=== PATIENT | female | born 1950 | race Caucasian/White ===

== ENCOUNTER 2020-05-20 14:57 | Outpatient (CLI) | payer MEDICARE, SELFPAY ==
--- NOTE | ~2020-05-20 | MM_ITS ---
EXAMINATION: MM screening manuela BI w tanmay HISTORY: Screening mammogram TECHNIQUE: Craniocaudal and mediolateral oblique 3-D tomosynthesis images were obtained and synthetic 2-D images were generated. CAD analysis was submitted and interpreted. COMPARISON: Comparison to multiple prior studies sequentially, with oldest reviewed study dated 12/12. BREAST PARENCHYMAL COMPOSITION: There are scattered areas of fibroglandular density. FINDINGS: There is no evidence of suspicious mass, calcification, or architectural distortion to sugg est malignancy in either breast. There has been no suspicious interval change. IMPRESSION: 1. No mammographic evidence of malignancy. 2. Recommend routine screening mammography in one year. BI-RADS Category 1: Negative Reviewed, dictated and finalized at location A.
--- NOTE | ~2020-05-20 | DEXA_ITS ---
Bone Density Report Name: Irene Lou Age: 70 Sex: Female Ethnicity: White Date of : 1950 Indication: postmenopausal; Referring Provider: Jax Cruz Study: Bone densitometry was performed. Exam Date: May 20, 2020 Accession number: [id number] Bone Density: Region BMD T-score Z-score Classification AP Spine (L1-L4) 0.823 -2.0 -0.1 Osteopenia Femoral Neck (Left) 0.634 -1.9 -0.3 Osteopenia Total Hip (Left) 0.717 -1.8 -0.5 Osteopenia Total Hip Bilateral Avg 0.724 -1.8 -0.4 Osteopenia Femoral Neck (Right) 0.628 -2.0 -0.3 Osteopenia Total Hip (Right) 0.730 -1.7 -0.3 Osteopenia World Health Organization criteria for BMD impression classify patients as: Normal (T-score at or above -1.0), Osteopenia (T-score between -1.0 and -2.5), or Osteoporosis (T-score at or below -2.5). 10-year Fracture Risk(1): Major Osteoporotic Fracture 11% Hip Fracture 1.8% Reported Risk Factors: [place] (), Neck BMD=0.628, BMI=28.3 (1) FRAX(R) Version 3.08. Fracture probability calculated for an untreated patient. Fracture probability may be lower if the patient has received treatment. Clinical Information Provided by Patient: Has used the following medications: Calcium Patient maximum height was 64 Menopause Age: 54 Drinks caffeinated beverages Onset of menses at age 16 Number of children 1 Impression: The patient has low bone mass, based on the Total Spine T-score. The patient has an estimated ten-year risk of hip fracture of 1.8% and an estimated ten-year risk of major fracture of 11%, based on the WHO FRAX algorithm. Discussion: BONE DENSITY IS LOW AT ONE OR MORE SKELETAL SITES. This patient's lowest T-score is low at one or more skeletal sites. It meets the World Health Organization's (WHO) criteria for ?low bone mass? (T-score between -1.0 and -2.5). The patient's 10-year risk of fracture as calculated by FRAX is less than the threshold where pharmacological therapy is recommended by the National Osteoporosis Foundation (NOF). However, all treatment decisions require clinical judgment and consideration of individual patient factors, including patient preferences, comorbidities, previous drug use, risk factors not captured in the FRAX model (e.g., frailty, falls, vitamin D deficiency, increased bone turnover, interval significant decline in bone density) and possible under or overestimation of fracture risk by FRAX. The patient should follow a healthful lifestyle (good nutrition with adequate calcium and vitamin D, and appropriate weight-bearing exercise). Follow-Up: Consider repeating this study in 2 to 3 years to reassess this patient's status, or sooner if there is some new clinical indication. Reported by: AMADO on 05/20/2020 3:29:00 PM. Reviewed,
== END 2020-05-20 14:58 | disposition home or self-care (01) ==
LOC: ANHIMG 14:59
PROVIDERS: PCP Family Medicine; Visit Provider Family Medicine
DX: Z12.31 Encounter for screening mammogram for malignant neoplasm of breast (principal); Z78.0 Asymptomatic menopausal state; M85.88 Other specified disorders of bone density and structure, other site; M85.852 Other specified disorders of bone density and structure, left thigh; M85.851 Other specified disorders of bone density and structure, right thigh
CPT/HCPCS: 77063; 77067; 77080

== ENCOUNTER 2021-05-28 14:38 | Outpatient (CLI) | payer MEDICARE, SELFPAY ==
--- NOTE | ~2021-05-28 | MM_ITS ---
EXAMINATION: MM screening manuela BI w tanmay HISTORY: Screening mammogram TECHNIQUE: Craniocaudal and mediolateral oblique 3-D tomosynthesis images were obtained and synthetic 2-D images were generated. CAD analysis was submitted and interpreted. COMPARISON: 05/20/2020, 05/17/2019, 04/11/2018 bilateral digital screening mammogram examinations BREAST PARENCHYMAL COMPOSITION: There are scattered areas of fibroglandular density. FINDINGS: There is no evidence of suspicious mass, calcification, or architectural distortion to sugg est malignancy in either breast. There has been no suspicious interval change. IMPRESSION: 1. No mammographic evidence of malignancy. 2. Recommend routine screening mammography in one year. BI-RADS Category 1: Negative Reviewed, dictated and finalized at location A.
== END 2021-05-28 14:39 | disposition home or self-care (01) ==
LOC: ANHIMG 14:39
PROVIDERS: PCP Family Medicine; Visit Provider Family Medicine
DX: Z12.31 Encounter for screening mammogram for malignant neoplasm of breast (principal)
CPT/HCPCS: 77063; 77067

== ENCOUNTER 2022-07-10 14:40 | Outpatient (CLI) | payer MEDICARE, SELFPAY ==
--- NOTE | ~2022-07-10 | DEXA_ITS ---
Bone Density Report Name: YEIMI AMATO Age: 72 Sex: Female Ethnicity: White Date of : 1950 Indication: osteopenia; postmenopausal Referring Provider: MOHINI LOYOLA Study: Bone densitometry was performed. Exam Date: July 10, 2022 Accession number: [id number] Bone Density: Region BMD T-score Z-score Classification AP Spine(L1-L4) 0.817 -2.1 0.0 Osteopenia Femoral Neck (Left) 0.659 -1.7 0.1 Osteopenia Total Hip (Left) 0.710 -1.9 -0.4 Osteopenia Femoral Neck (Right) 0.634 -1.9 -0.1 Osteopenia Total Hip (Right) 0.708 -1.9 -0.4 Osteopenia Total Hip Mean 0.709 -1.9 -0.4 Osteopenia World Health Organization criteria for BMD impression classify patients as: Normal (T-score at or above -1.0), Osteopenia (T-score between -1.0 and -2.5), or Osteoporosis (T-score at or below -2.5). 10-year Fracture Risk(1): Major Osteoporotic Fracture 13% Hip Fracture 3.1% Reported Risk Factors: [place] (), Neck BMD=0.634, BMI=30.7, alcohol use (1) FRAX(R) Version 3.08. Fracture probability calculated for an untreated patient. Fracture probability may be lower if the patient has received treatment. Previous Exams: Region Exam Age BMD T-score BMD Change BMD Change Date g/cm2 vs Baseline vs Previous AP Spine (L1-L4) 07/10/2022 72 0.817 -2.1 -0.005 (-0.6%) -0.005 (-0.6%) 05/20/2020 70 0.823 -2.0 Total Hip(Left) 07/10/2022 72 0.710 -1.9 -0.007 (-1.0%) -0.007 (-1.0%) 05/20/2020 70 0.717 -1.8 Total Hip(Right) 07/10/2022 72 0.708 -1.9 -0.022 (-3.0%) -0.022 (-3.0%) 05/20/2020 70 0.730 -1.7 *Denotes significance at 95% confidence level, LSC for AP Spine = 0.022 g/cm2, LSC for Total Hip = 0.027 g/cm2 Clinical Information Provided by Patient: Has 3 or more alcoholic drinks per day Patient maximum height was 64 Menopause Age: 54 Drinks caffeinated beverages Onset of menses at age 16 Number of children 1 Impression: The patient has low bone mass, based on the Total Spine T-score. The patient has an estimated ten-year risk of hip fracture of 3.1% and an estimated ten-year risk of major fracture of 13%, based on the WHO FRAX algorithm. The patient has risk factors, including: excessive alcohol use. No significant bone loss was observed. Discussion: BONE DENSITY IS LOW AT ONE OR MORE SKELETAL SITES. THE PATIENT'S BMD AND CLINICAL RISK FACTORS CONTRIBUTE TO THIS PATIENT'S INCREASED RISK OF FRACTURE. This morris
--- NOTE | ~2022-07-10 | MM_ITS ---
EXAMINATION: MM screening manuela BI w tanmay HISTORY: Screening mammogram TECHNIQUE: Craniocaudal and mediolateral oblique 3-D tomosynthesis images were obtained and synthetic 2-D images were generated. CAD analysis was submitted and interpreted. COMPARISON: 05/28/2021, 05/20/2020, 05/17/2019 bilateral screening mammogram examinations BREAST PARENCHYMAL COMPOSITION: There are scattered areas of fibroglandular density. FINDINGS: There is no evidence of suspicious mass, calcification, or architectural distortion to sugg est malignancy in either breast. There has been no suspicious interval change. IMPRESSION: 1. No mammographic evidence of malignancy. 2. Recommend routine screening mammography in one year. BI-RADS Category 1: Negative Reviewed, dictated and finalized at location A.
== END 2022-07-10 14:41 | disposition home or self-care (01) ==
LOC: ANHIMG 14:41
PROVIDERS: PCP Family Medicine; Visit Provider Student in an Organized Health Care Education/Training Program
DX: Z78.0 Asymptomatic menopausal state (principal); Z12.31 Encounter for screening mammogram for malignant neoplasm of breast; M85.89 Other specified disorders of bone density and structure, multiple sites
CPT/HCPCS: 77063; 77067; 77080

== ENCOUNTER → 2022-08-06 09:31 | Outpatient (CLI) | payer MEDICARE, SELFPAY ==
--- NOTE | ~2022-08-06 | MR_ITS ---
EXAMINATION: MR hip RT wo con DATE: 08/06/2022 10:38 INDICATION: Right hip pain TECHNIQUE: Magnetic resonance imaging (MRI) of the right hip was performed without intravenous contr ast. Sequences included full-field axial PD-weighted FS FSE and T1-weighted FSE, coronal of the pelvi s with PD-weighted FS FSE, T2-weighted FSE and T1-weighted FSE, small field of view of the right hip with axial PD-weighted FS FSE, sagittal PD-weighted FS FSE, coronal PD-weighted FS FSE and coronal T2 weighted FSE. Additional radial T1-weighted FGR oriented orthogonal to the acetabular rim were obt ained for evaluation of the labrum. COMPARISON: None FINDINGS: Bones/labrum/cartilage: Alignment is normal. No fracture, avascular necrosis or pathologic marrow replacing process. Mild os teoarthritis at the left hip with partial thickness cartilage loss primarily posteriorly and with les s severe partial thickness cartilage loss with some chondral surface regularity along the anterosuper ior to superolateral aspect of the joint space. There is diffuse tearing of the right acetabular labr um. Similar mild osteoarthritis at the left hip and anterosuperior to superolateral tear of the left acetabular labrum suggestive but not diagnostically evaluated on the larger field of view images. Mil d lumbar spondylosis. Fluid: Symmetric physiologic amount of fluid within both hip joints. Soft tissues: Mild tendinopathy at the bilateral gluteus medius and minimus tendons with partial tear at the anteri or facet footplate of the left gluteus minimus tendon. There is additional partial thickness tear of the anterior portion of the left gluteus medius medius tendon with retraction of the myotendinous deepthi ction 4.5 cm proximal to the greater trochanteric insertion. Mild right ischial bursitis with mild te ndinopathy without definitive tear at the right ischial tuberosity origin of the proximal right hamst ring tendons. Mild fatty atrophy of the bilateral gluteus medius minimus and left gluteus medius medi us muscle bellies. Limited evaluation of visceral organs of the pelvis is unremarkable. No pathologi alona enlarged pelvic/inguinal lymphadenopathy. IMPRESSION: 1. 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 Similar findings suggested but not diagnos tically evaluated the contralateral left hip on the larger field of view images. 2. Mild right ischial bursitis with mild tendinopathy without discrete tear of the proximal right ham string tendons. 3. Mild tendinopathy at the bilateral gluteus medias and minimus tendons without discrete tear on the right and with partial-thickness tears at the greater trochanteric insertions of the left gluteus mi nimus and medius tendons. Reviewed, dictated and finalized at location A. IMPRESSION: 1. 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 Similar findings sug gested but not diagnostically evaluated the contralateral left hip on the large r field of view images. 2. Mild right ischial bursitis with mild tendinopathy without discrete tear of the proximal right hamstring tendons. 3. Mild tendinopathy at the bilateral gluteus medias and minimus tendons withou t discrete tear on the right and with partial-thickness tears at the greater tr ochanteric insertions of the left gluteus minimus and medius tendons.
== END ==
PROVIDERS: PCP Family Medicine; Visit Provider Nurse Practitioner Family
DX: G89.29 Other chronic pain (principal); M25.551 Pain in right hip; M16.11 Unilateral primary osteoarthritis, right hip; S73.191A Other sprain of right hip, initial encounter; M71.551 Other bursitis, not elsewhere classified, right hip; M76.01 Gluteal tendinitis, right hip
CPT/HCPCS: 73721

== ENCOUNTER 2022-08-25 12:46 | Outpatient (CLI) | payer MEDICARE, SELFPAY ==
--- NOTE | ~2022-08-25 | XR_ITS ---
EXAMINATION: XR lg joint inject/asp add DATE: 08/25/2022 13:41 INDICATION: Right hip arthritis. TECHNIQUE: A time-out was performed to verify the patient's name, date of , and procedure to b e performed. The procedure including the risks, benefits, and alternatives was discussed with the pat ient. Risks discussed included bleeding and infection. The patient understood the risks and agreed to proceed. The skin overlying the right hip joint was prepped and draped in usual sterile fashion. A nesthetic was administered with 1% lidocaine subcutaneously. A 22 G needle was advanced under fluoro scopic guidance into the joint. Subsequently, injectate consisting of 2 mL 0.5% bupivacaine and 1 mL 80 mg/mL Depo-Medrol was instilled. The needle was removed and the entry site was cleaned and dress ed. There were no immediate complications. Fluoroscopy exposure time was 0.0 minutes. The total numb er of images was 1. FINDINGS: Real-time fluoroscopy demonstrates the needle in the right hip joint. Patient's pain prior to procedure:4/10. Patient's pain following the procedure: 4/10. IMPRESSION: 1. Fluoroscopy guided right hip joint injection of local anesthetic and steroid. Reviewed, dictated and finalized at location A. IMPRESSION: 1. Fluoroscopy guided right hip joint injection of local anesthetic and steroid .
--- NOTE | ~2022-08-25 | XR_ITS ---
CORRECTED REPORT order change 08/26/22 JMG This report was recreated on 08/26/22. Original report was signed by Thad Alexis M.D. on 08/25/2022 15:47 CDT EXAMINATION: XR lg joint inject/asp w image DATE: 08/25/2022 13:41 INDICATION: Right hip arthritis. TECHNIQUE: A time-out was performed to verify the patient's name, date of , and procedure to be performed. The procedure including the risks, benefits, and alternatives was discussed with the patient. Risks discussed included bleeding and infection. The patient understood the risks and agreed to proceed. The skin overlying the right hip joint was prepped and draped in usual sterile fashion. Anesthetic was administered with 1% lidocaine subcutaneously. A 22 G needle was advanced under fluoroscopic guidance into the joint. Subsequently, injectate consisting of 2 mL 0.5% bupivacaine and 1 mL 80 mg/mL Depo-Medrol was instilled. The needle was removed and the entry site was cleaned and dressed. There were no immediate complications. Fluoroscopy exposure time was 0.0 minutes. The total number of images was 1. FINDINGS: Real-time fluoroscopy demonstrates the needle in the right hip joint. Patient's pain prior to procedure:4/10. Patient's pain following the procedure: 4/10. IMPRESSION: 1. Fluoroscopy guided right hip joint injection of local anesthetic and steroid. Reviewed, dictated and finalized at location A. [facility]
== END 2022-08-25 12:47 | disposition home or self-care (01) ==
LOC: ANHIMG 12:48
PROVIDERS: PCP Family Medicine; Visit Provider Nurse Practitioner Family
DX: M16.11 Unilateral primary osteoarthritis, right hip (principal)
CPT/HCPCS: 20610; 77002; J1040

== ENCOUNTER 2023-10-07 02:04 | Day surgery (SDC) | payer MEDICARE, SELFPAY ==
[2023-09-27 15:27] VITALS: BMI 30.9
--- NOTE | 2023-10-05 12:05 | SUR.PREOP ---
Message left with patient regarding upcoming procedure. Reviewed preop instructions, appointment times, and procedure prep.
--- NOTE | 2023-10-06 15:53 | PM.HPGS ---
History of Present Illness History of Present Illness Consent: Risks, benefits, and alternatives have been discussed and questions answered. Patient agrees to proceed with procedure. Chief complaint: neoplasm screening Narrative: Irene Lou is a 73 year old female who is here for colon cancer screening. Her last colonoscopy was 10 years ago. Review of Systems Review of Systems: All systems reviewed & are unremarkable except as noted in HPI and below PMFSH Past Medical History Medical History Atonic neurogenic bladder Chronic right hip pain Chronic UTI (urinary tract infection) Dysuria Encounter for gynecological examination (general) (routine) without abnormal findings Essential (primary) hypertension Family history of breast cancer Gastro-esophageal reflux disease without esophagitis History of seizure History of stroke History of subarachnoid hemorrhage HLD (hyperlipidemia) Hypothyroidism Iliopsoas bursitis of right hip Low bone mass Screening mammogram, encounter for Trochanteric bursitis of right hip Surgical History Surgical History H/O total knee replacement (~2012) right knee Family History Family History Mother Cerebrovascular accident Family history of malignant neoplasm of breast in first degree relative Diabetes mellitus Family history of hypercholesterolemia Hypertension Father Family history of coronary artery disease Sibling Family history of malignant neoplasm of breast in first degree relative, Onset Age: 58 Other Family history of arthritis Family history of mental disorder Social History Social History Smoking status: Never smoker Second hand tobacco smoke exposure: No Alcohol intake: current Drinks per week: 15 Alcohol use details: DRINKS Substance use: never Substance use type: does not use Lack of Transportation: No Lack of Food: Never True Current Housing: I Have Housing Concerned About Future Housing: No Difficulty Paying Gas/Electric Bills: No Difficulty Paying for Meds: No Currently Unemployed: No Education: Master's Degree or Higher Difficulty w/ Childcare or Family Care: No Living arrangements: with family Additional living arrangements comments: Occupation/Education: retired Gender identity (if verbalized by the patient): Female Sexual Orientation (if Verbalized by the Patient): Straight or Heterosexual Spiritual care concerns: No Meds Home Medications and Allergies Home Medications Medication Instructions Recorded Confirmed Type alendronate 35 mg tablet 35 mg PO WEEKLY #90 tabs 09/02/22 09/27/23 Rx amlodipine 10 mg tablet See Rx Instructions .Route 12/14/22 09/27/23 Rx .COMPLEX #90 tabs atorvastatin 20 mg tablet See Rx Instructions .Route 12/14/22 09/27/23 Rx .COMPLEX #90 tabs cephalexin 500 mg capsule 500 mg PO DAILY #90 caps 12/14/22 09/27/23 Rx chlorthalidone 25 mg tablet See Rx Instructions .Route 12/14/22 09/27/23 Rx .COMPLEX #90 tabs levetiracetam 1,000 mg tablet See Rx Instructions .Route 12/14/22 09/27/23 Rx .COMPLEX #180 tabs levothyroxine 88 mcg tablet See Rx Instructions .Route 12/14/22 09/27/23 Rx .COMPLEX #90 tabs Calcium 500 + D 1 tab-cap PO DAILY 09/27/23 09/27/23 History cyanocobalamin (vitamin B-12) 1,000 mcg PO DAILY 09/27/23 09/27/23 History 1,000 mcg tablet lansoprazole 15 mg capsule,delayed 30 mg PO DAILY 09/27/23 09/27/23 History release magnesium oxide 500 mg tablet 500 mg PO DAILY 09/27/23 09/27/23 History svdwffbiixih-Pc-mogz-minerals 1 tablet PO DAILY 09/27/23 09/27/23 History turmeric root extract 500 mg 500 mg PO BID 09/27/23 09/27/23 History capsule Allergies Allergy/AdvReac Type Severity Reaction Status Date / Time shrimp
[2023-10-07 12:06] VITALS: BP 148/59; PULSE 56; RESP 18; TEMP 36.2; O2SAT 98
[2023-10-07] MEDS: LACTATED RINGERS 1,000 ML 150 ML IV CONT (12:18)
[2023-10-07 13:35] VITALS: BP 111/59; PULSE 53; RESP 22; O2SAT 99
[2023-10-07 13:45] VITALS: BP 115/61; PULSE 51; RESP 19; O2SAT 99
[2023-10-07 13:55] VITALS: BP 128/72; PULSE 52; RESP 23; O2SAT 99
== END 2023-10-07 14:03 | disposition home or self-care (01) ==
PROVIDERS: PCP Family Medicine; Visit Provider Internal Medicine Gastroenterology
PROC: 0DJD8ZZ Inspection of Lower Intestinal Tract, Via Natural or Artificial Opening Endoscopic (ICD-10-PCS; CPT 45378; principal; 2023-10-07 13:00)
DX: Z12.11 Encounter for screening for malignant neoplasm of colon (principal); K64.8 Other hemorrhoids; I10 Essential (primary) hypertension; K21.9 Gastro-esophageal reflux disease without esophagitis; E78.5 Hyperlipidemia, unspecified; E03.9 Hypothyroidism, unspecified; Z86.73 Personal history of transient ischemic attack (TIA), and cerebral infarction without residual deficits
CPT/HCPCS: G0121; J2704; J7120

== ENCOUNTER 2023-10-14 15:37 | Outpatient (CLI) | payer MEDICARE, SELFPAY ==
--- NOTE | ~2023-10-14 | MM_ITS ---
EXAMINATION: MM screening manuela BI w tanmay HISTORY: Screening TECHNIQUE: Craniocaudal and mediolateral oblique 3-D tomosynthesis images were obtained and synthetic 2-D images were generated. CAD analysis was submitted and interpreted. COMPARISON: No prior mammogram is available for comparison at this institution. BREAST PARENCHYMAL COMPOSITION: There are scattered areas of fibroglandular density. FINDINGS: There is no evidence of suspicious mass, calcification, or architectural distortion to sugg est malignancy in either breast. There has been no suspicious interval change. IMPRESSION: 1. No mammographic evidence of malignancy. 2. Recommend routine screening mammography in one year. BI-RADS Category 1: Negative Reviewed, dictated and finalized at location A. [employer]
== END 2023-10-14 15:38 | disposition home or self-care (01) ==
PROVIDERS: PCP Family Medicine; Visit Provider Registered Nurse
DX: Z12.31 Encounter for screening mammogram for malignant neoplasm of breast (principal)
CPT/HCPCS: 77063; 77067

== ENCOUNTER 2024-08-22 13:31 | Outpatient (CLI) | payer MEDICARE, SELFPAY ==
--- NOTE | ~2024-08-22 | XR_ITS ---
EXAMINATION: XR lg joint inject/aspiration DATE: 08/22/2024 14:20 INDICATION: Right hip arthritis. TECHNIQUE: A time-out was performed to verify the patient's name, date of , and procedure to b e performed. The procedure including the risks, benefits, and alternatives was discussed with the pat ient. Risks discussed included bleeding and infection. The patient understood the risks and agreed to proceed. The skin overlying the right hip joint was prepped and draped in usual sterile fashion. A nesthetic was administered with 1% lidocaine subcutaneously. A 22 G needle was advanced under fluoro scopic guidance into the joint. Subsequently, injectate consisting of 2 mL 0.5% bupivacaine and 1 mL 80 mg/mL Depo-Medrol was instilled. The needle was removed and the entry site was cleaned and dress ed. There were no immediate complications. Fluoroscopy exposure time was 0.0 minutes. The total numb er of images was 1. FINDINGS: Real-time fluoroscopy demonstrates the needle in the right hip joint. IMPRESSION: 1. Fluoroscopy guided right hip joint injection of local anesthetic and steroid. Reviewed, dictated and finalized at location A. IMPRESSION: 1. Fluoroscopy guided right hip joint injection of local anesthetic and steroid .
== END 2024-08-22 13:32 | disposition home or self-care (01) ==
PROVIDERS: PCP Family Medicine; Visit Provider Nurse Practitioner Family
DX: M16.11 Unilateral primary osteoarthritis, right hip (principal)
CPT/HCPCS: 20610; J1010

== ENCOUNTER 2025-01-08 14:03 | Outpatient (CLI) | payer MEDICARE, SELFPAY ==
--- NOTE | ~2025-01-08 | MM_ITS ---
EXAMINATION: MM screening manuela BI w tanmay HISTORY: Screening mammogram, family history of breast cancer in her mother and sister. TECHNIQUE: Craniocaudal and mediolateral oblique 3-D tomosynthesis images were obtained and synthetic 2-D images were generated. CAD analysis was submitted and interpreted. COMPARISON: 10/14/2023, 07/10/2022, 05/28/2021, 05/20/2020 BREAST PARENCHYMAL COMPOSITION:Not Dense. There are scattered areas of fibroglandular density. FINDINGS: No suspicious mass, calcification, or architectural distortion are identified in either tucker ast to suggest malignancy. There has been no suspicious interval change. IMPRESSION: No mammographic evidence of malignancy. Recommend routine screening mammography in one year. BI-RADS Category 1: Negative Reviewed, dictated and finalized at [facility].
--- OUTSIDE RECORDS SUMMARY | 2025-01-08 16:20 | XMS_ITS | Encounter Summary ---
Author Organization [facility] Address 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 Name Role Phone Unavailable Primary Care Provider Unavailabl e Encounter Details Date Type Department Care Team (Late st Contact Info) Description 10/08/1999 Outpatient Historical Division of Neurology [address] [place] [address] Bob Rondon MD [address] [facility] [address] [place] [address] Social History Tobacco Use Types Packs/Day Years Used Date Smoking Tobacco: Never Assessed Comments Unknown Sex and Gender Information Value Date Recorded Sex Assigned at Not on file Legal 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
--- OUTSIDE RECORDS SUMMARY | 2025-01-08 16:20 | XMS_ITS | Clinical Summary ---
Author Organization [facility] Address [address] [place] [id number] Care Team Providers Care Superannuation Clerk Name Role Phone Jax Cruz MD Primary Care Provider Allergies Active Allergy Reactions Criticality Noted Date Comments Penicillin G Other (See comments) Low 12/04/2022 Infancy Shrimp Hives Medium 05/02/2024 Medications atorvastatin (LIPITOR) 20 mg tablet Take 1 tablet (20 mg total) by mouth daily Active calcium carbonate/vitamin D3 (CALCIUM 500 + D, D3, ORAL) Take by mouth Act christine levETIRAcetam (KEPPRA) 1,000 mg tablet Take 1 tablet (1,000 mg total) by mouth 2 (two) times a day Active amLODIPine (NORVASC) 10 mg tablet Take 1 tablet (10 mg total) by mouth daily Active levothyroxine (SYNTHROID) 88 mcg tablet Take 1 tablet (88 mcg total) by mouth early education teacher before breakfast Active chlorthalidone 25 mg tablet Take 1 tablet (25 mg total) by mouth daily Active alendronate (FOSAMAX) 35 mg tabletIndications :Post-Menopausal Osteoporosis Prevention Take 1 tablet (35 mg total) by mouth every 7 days Take in the morning with a full glass of water, on an empty stomach, and do not take anything else by mouth or lie down for the next 30 min. Active clindamycin (CLEOCIN) 150 mg capsule TAKE FOUR CAPSULES BY MOUTH ONE HOUR PRIOR TO DENTAL WORK 4 Active cephalexin (KEFLEX) 500 mg capsule Take 1 capsule (500 mg total) by mouth 2 (two) times a day 4 Active Active Problems No known active problems Family History Medical History Relation Name Comments Hip fracture Neg Hx Osteoporosis Neg Hx Social History Tobacco Use Types Packs/Day Years Used Date Smoking Tobacco: Never Passive Smoke Exposure: Never Smokeless Tobacco: Never Tobacco Cessation:Counseling Given: Not Answered Personal Safety Answer Date Recorded Getting School Help Needed Not on file 12/13 Comments Unknown Sex and Gender Information Value Date Recorded Sex Assigned at Not on file 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 Gender Identity Not on file Sexual Orientation Not on file Obstetrics History Last Filed Vital Signs Vital Sign Reading Time Taken Comments Blood Pressure 144/69 05/02/2024 10:14 AM CDT Pulse 73 05/02/2024 10:14 AM CDT Temperature 36.7 C (98 F) 05/02/2024 10:14 AM CDT Respiratory Rate - - Oxygen Saturation 96% 05/02/2024 10:14 AM CDT Inhaled Oxygen Concentration - - Weight 81.8 kg (180 lb 6.4 oz) 05/02/2024 10:14 AM CDT Height 160 cm (5' 3 ) 05/02/2024 10:14 AM CDT Body Mass Index 31.96 05/02/2024 10:14 AM CDT Plan of Treatment Health Maintenance Due Date Last Done Comments Breast Cancer Screening-Mammogram 1950 Colon Cancer Screening-Colonoscopy 1950 Depression Screening 1950 Fall Risk Assessment 1950 Hepatitis C Screening 1950 Hepatitis B Screening 1970 Well Visit 65+ 2017 Covid-19 Vaccine (2023-2 5 season) 2024 07/22/2022, 02/02/2022, 07/27/2021, Additional history exists Influenza Vaccine (#1) 2024 2, 07/04/2021, 07/15/2020, Additional history exists Osteoporosis Screening-Bone Density Scan 01/11/2026 01/12/2024, 12/04/2022 DTaP/Tdap/Td Vaccine (2 - Td or Tdap) 07/06/2027 07/06/2017 Pneumococcal vaccine 65+ Completed 07/11/2018, 03/2017 Zoster Vaccine Completed 09/28/2018, 07/13/2018 Procedures Procedure Name Priority Date/Time Associated Diagnosis Comments DEXA TBS AXIAL SKELETON BONE DENSITY 1 OR MORE SITES Schedule Routine, Read Routine (OP Routine) 01/12/2024 3:11 PM CDT Osteopenia of multiple sites from Last 3 Months or Most Recently Relevant to Health Maintenance Results * Dexa TBS Axial Skeleton Bone Density 1 or more sites (01/12/2024 3:11 PM CDT) Anatomical Region Laterality Modality Wrist, Body N/A Radiographic Tammy ging Narrative 01/12/2024 4:32 PM CDT Patient Name: Irene Lou Date of : 1950 Date of scan: 01/12/2024 Bone mineral density was performed on a [employer] Discovery Densitometer. Based on machine cross-calibration and precision studies the least significant changes of this densitometer is 0.024 g/cm2 at the spine, 0.020 g/cm2 at the total proximal femur, and 0.014g/cm2 at the forearm. HISTORY: This is a 73 y.o. postmenopausal female with a history of low bone mass, thyroid disease, and vitamin D deficiency. She reports that she has never smoked. She has never used smokeless tobacco. Currently on treatment with calcium, vitamin D, alendronate (Fosamax), anti-seizure medications, and thyroid hormone and current complaint of back pain and leg pain. INDICATIONS: Menopause status, treatment monitoring, vitamin D deficiency, and history of low bone mass. FINDINGS: BONE MINERAL DENSITY OF THE LUMBAR SPINE Bone Mineral Density (BMD) of the lumbar spine was measured from L1-L3 and the average density was calculated to be 0.797 gm/cm2. This corresponds to a T-score (standard deviations from the mean of young adults) of -2.0. When compared to the previous study of 12/04/2022 there has been no significant changes in bone density. BONE MINERAL DENSITY OF THE PROXIMAL FEMUR Bone Mineral Density (BMD) of the left hip total was found to be 0.751 gm/cm2. This corresponds to a T-score standard deviations from the mean of young adults of -1.6. Femoral neck is 0.637 gm/cm2 with a T-score (standard deviations from the mean of young adults) of -1.9. When compared to the previous study of 12/04/2022 there has been a 0.022 gm/cm (3.0%) increase in bone density that is considered significant. SUMMARY: Bone mineral density shows evidence of low bone mass at the lumbar spine and proximal femur and moderately increased fracture risk (Osteopenia). There has been a significant increase in bone density since previous measurement. L4 excluded from bone mineral density analysis of the lumbar spine because of bone density being more than 1 standard deviation discrepant relative to one adjacent vertebra. Clinical correlation is recommended. The lumbar spine Trabecular Bone Score is 1.180 which suggests degraded bone microarchitecture compared to the general population. Final decisions regarding diagnostic or therapeutic recommendations should include BMD, TBS, additional clinical risk factors as well the clinical context of the patient. Please see attached TBS results for further details. ADDITIONAL COMMENTS: Postmenopausal Women and Men Over 50: Diagnostic criteria: Osteoporosis: BMD at or below -2.5 T-score; Osteopenia (low bone mass): BMD between -1.0 and -2.5 T-score. If the patient has a history of a fragility fracture, a fracture that occurred with trauma equivalent to a fall from a standing position or less, then the diagnosis is osteoporosis regardless of bone density. The history and data sections of the bone mineral density scan were prepared by Shahana Salgado who is accredited by the International Society of Clinical Densitometry. The overall patient assessment and scan interpretation were performed by Yelena Flores MD who is certified by the International Society of Clinical Densitometry. [id number] Yelena Flores MD [facility] [place] DXA PROCEDURES Final R esult from Last 3 Months or Most Recently Relevant to Health Maintenance Insurance AET[employer] MEDICARE GOLD AETNA MEDICARE GOLD Care Teams Superannuation Clerk Relationship Specialty Start Date End Date Jax Cruz MD [address] [address] PCP - General Family Medicine 09/17/22
--- OUTSIDE RECORDS SUMMARY | 2025-01-08 16:20 | XMS_ITS | Referral Summary ---
Author Organization [facility] Address [address] [address] Care Team Providers Care Name Plate Stamping Machine Operator Name Role Phone Jax Cruz MD Primary Care Provider [phone] Source Comments [facility]iliates and Associated Physician Practices is amultiple site organization consisting of ambulatory clinics and hospital sitesin [place], [place], [place] and [place]. This disclosure is being madepursuant to the Care Everywhere program and may not contain all information available regarding this patient. Last updated 18.[facility] Social History Tobacco Use Types Packs/Day Years Used Date Smoking Tobacco: Never Assessed Sex and Gender Information Value Date Recorded Sex Assigned at Not on file Gender Identity Not on file Sexual Orientation Not on file Plan of Treatment Not on file Procedures Procedure Name Priority Date/Time Associated Diagnosis Comments LIPID PROFILE Routine 09/07/2012 11:00 AM COTTON GIN YARD SUPERVISOR from Last 3 Months or Most Recently Relevant to Health Maintenance Results * (ABNORMAL) LIPID PROFILE (09/07/2012 11:00 AM COTTON GIN YARD SUPERVISOR) Cholesterol Total 194 <200 mg/dL [facility] HDL 64 > OR = 40 mg/dL [facility] Comment: ATP III classification of HDL cholesterol: <40 mg/dL Low; considered a major risk factor >60 mg/dL High; considered a negative risk factor Triglycerides 56 <150 mg/dL [facility] Comment: ATP III classification of Triglycerides: < 150 mg/dL Normal triglycerides 150-199 mg/dL Borderline-high triglycerides 200-400 mg/dL High triglycerides > 500 mg/dL Very high triglycerides LDL Calculated 119(H) 0 - 100 mg/dL [facility] Comment: ATP III classification of LDL cholesterol: <100 mg/dL Optimal 100-129 Near optimal/above optimal 130-159 Borderline high 160-189 High >190 Very high Venous blood specimen (specimen) 09/07/2012 11:00 AM COTTON GIN YARD SUPERVISOR 09/07/2012 11:15 AM COTTON GIN YARD SUPERVISOR Zayra Webster MD LAB - CHEMISTRY JAZMIN FLORES [facility] [address] [phone] from Last 3 Months or Most Recently Relevant to Health Maintenance Care Teams Name Plate Stamping Machine Operator Relationship Specialty Start Date End Date Jax Cruz MD [address] [place] [address] PCP - General 12/15/19
--- OUTSIDE RECORDS SUMMARY | 2025-01-08 16:20 | XMS_ITS | Encounter Summary ---
Author Organization [facility] Address [address] [place] [address] Care Team Providers Care Pets Salesperson Name Role Phone Unavailable Primary Care Provider Unavailabl e Encounter Details Date Type Department Care Team (Late st Contact Info) Description 10/08/1999 Outpatient Historical Division of Neurology [address] [address] Bob Rondon MD [address] [facility] [address] [place] [address] Social History Tobacco Use Types Packs/Day Years Used Date Smoking Tobacco: Never Assessed Comments Unknown Sex and Gender Information Value Date Recorded Sex Assigned at Not on file 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
--- OUTSIDE RECORDS SUMMARY | 2025-01-08 16:20 | XMS_ITS | Referral Summary ---
Author Organization [facility] Address [facility] [place] [address] Care Team Providers Care Lean Manufacturing Leader Name Role Phone Jax Cruz MD Primary [...] 1 tablet (88 mcg total) by mouth recreational counselor before breakfast Active chlorthalidone 25 mg tablet [...] by mouth 2 (two) times a day 05/11/202 4 Active Active Problems No known active problems Social History Tobacco Use Types Packs/Day Years Used Date Smoking Tobacco: Never Passive Smoke Exposure: Never Smokeless Tobacco: Never Tobacco Cessation:Counseling Given: Not Answered Personal Safety Answer Date Recorded Getting School Help Needed Not on file 12/13 Comments Unknown Sex and Gender Information Value Date Recorded Sex Assigned at Not on file 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 Based on machine cross-calibration and [...] by the International Society of Clinical Densitometry. [id number] Yelena Flores MD IMG DXA PROCEDURES Final R esult from Last 3 Months or Most Recently Relevant to Health Maintenance Insurance MEDICARE BANNER T MEDICARE BANNER Care Teams Lean Manufacturing Leader Relationship Specialty Start Date End Date Jax Cruz MD [address] [address] PCP - General Family Medicine 09/17/22
--- OUTSIDE RECORDS SUMMARY | 2025-01-08 16:20 | XMS_ITS | Clinical Summary ---
Author Organization [facility] Address [address] [facility] Attn: Epic Prelude ADT [place] PRADO [address] Care Team Providers Care Administration Intern Name Role Phone Unavailable Primary Care Provider Unavailabl e Social History Tobacco Use Types Packs/Day Years Used Date Smoking Tobacco: Never Assessed Comments Unknown Sex and Gender Information Value Date Recorded Sex Assigned at Not on file Legal Sex Female 4:16 AM DIRECT OF REAL ESTATE Gender Identity Not on file Sexual Orientation Not on file Plan of Treatment Health Maintenance Due Date Last Done Comments DTAP/TDAP/TD VACCINES (1 - Tdap) 1971 BREAST CANCER SCREENING 1992 COLORECTAL SCREENING 1997 Colorectal Cancer Screening 1997 FIT-DNA Q 3 years 1997 FIT/FOBT Q 1 year 1997 Flex Sig/CT Colonography Q 5 years 1997 PNEUMOCOCCAL VACCINE 50+ YEARS (1 of 1 - PCV) 04/08/20 02 ZOSTER VACCINE (1 of 2) 2002 OSTEOPOROSIS SCREENING 2017 INFLUENZA VACCINE (#1) 2024 RSV VACCINE (60+ or ) (1 - 1-dose 75+ series) 2027
--- OUTSIDE RECORDS SUMMARY | 2025-01-08 16:20 | XMS_ITS | Patient Health Summary ---
Author Organization [facility] [employer] Address [address] [facility] [place] [address] Care Team Providers Care Sanipractic Physician Name Role Phone Jax Cruz MD Primary Care Provider [phone] Note from [facility],non-owned Affiliates and Associated Physician Practices is amultiple site organization consisting of ambulatory clinics and hospital sitesin [place], [place], [place] and [place]. This disclosure is being madepursuant to the Care Everywhere program and may not contain all information available regarding this patient. Last updated 18.[facility] [employer] Social History Tobacco Use Types Packs/Day Years Used Date Smoking Tobacco: Never Assessed Sex and Gender Information Value Date Recorded Sex Assigned at Not on file Gender Identity Not on file Sexual Orientation Not on file Procedures * DERMATOPATHOLOGY(Performed 12/15/2019) * DERMATOPATHOLOGY(Performed 10/01/2015) * DERMATOPATHOLOGY(Performed 03/27/2015) * CBC W AUTO DIFFERENTIAL(Performed 09/16/2012) * BASIC METABOLIC PANEL (CALCIUM TOTAL)(Performed 09/16/2012) * MAGNESIUM BLOOD(Performed 09/16/2012) * PHOSPHORUS BLOOD(Performed 09/16/2012) * GLUCOSE ACCUCHECK(Performed 09/15/2012) * PHOSPHORUS BLOOD(Performed 09/15/2012) * MAGNESIUM BLOOD(Performed 09/15/2012) * CBC W AUTO DIFFERENTIAL(Performed 09/15/2012) * BASIC METABOLIC PANEL (CALCIUM TOTAL)(Performed 09/15/2012) * GLUCOSE ACCUCHECK(Performed 09/14/2012) * GLUCOSE ACCUCHECK(Performed 09/14/2012) * MAGNESIUM BLOOD(Performed 09/14/2012) * PHOSPHORUS BLOOD(Performed 09/14/2012) * CBC W AUTO DIFFERENTIAL(Performed 09/14/2012) * BASIC METABOLIC PANEL (CALCIUM TOTAL)(Performed 09/14/2012) * GLUCOSE ACCUCHECK(Performed 09/13/2012) * GLUCOSE ACCUCHECK(Performed 09/13/2012) * GLUCOSE ACCUCHECK(Performed 09/13/2012) * PET CT WHOLE BODY(Performed 09/13/2012) * GLUCOSE ACCUCHECK(Performed 09/13/2012) * MAGNESIUM BLOOD(Performed 09/13/2012) * PHOSPHORUS BLOOD(Performed 09/13/2012) * CBC W AUTO DIFFERENTIAL(Performed 09/13/2012) * BASIC METABOLIC PANEL (CALCIUM TOTAL)(Performed 09/13/2012) * GLUCOSE ACCUCHECK(Performed 09/13/2012) * GLUCOSE ACCUCHECK(Performed 09/12/2012) * GLUCOSE ACCUCHECK(Performed 09/12/2012) * GLUCOSE - POINT OF CARE (AMB) SLU(Performed 09/12/2012) * GLUCOSE - POINT OF CARE (AMB) SLU(Performed 09/12/2012) * GLUCOSE ACCUCHECK(Performed 09/12/2012) * CBC W AUTO DIFFERENTIAL(Performed 09/12/2012) * BASIC METABOLIC PANEL (CALCIUM TOTAL)(Performed 09/12/2012) * MAGNESIUM BLOOD(Performed 09/12/2012) * PHOSPHORUS BLOOD(Performed 09/12/2012) * GLUCOSE ACCUCHECK(Performed 09/12/2012) * GLUCOSE ACCUCHECK(Performed 09/11/2012) * GLUCOSE ACCUCHECK(Performed 09/11/2012) * GLUCOSE ACCUCHECK(Performed 09/11/2012) * CBC W AUTO DIFFERENTIAL(Performed 09/11/2012) * BASIC METABOLIC PANEL (CALCIUM TOTAL)(Performed 09/11/2012) * MAGNESIUM BLOOD(Performed 09/11/2012) * PHOSPHORUS BLOOD(Performed 09/11/2012) * GLUCOSE ACCUCHECK(Performed 09/11/2012) * GLUCOSE ACCUCHECK(Performed 09/10/2012) * GLUCOSE ACCUCHECK(Performed 09/10/2012) * GLUCOSE ACCUCHECK(Performed 09/10/2012) * GLUCOSE ACCUCHECK(Performed 09/10/2012) * MAGNESIUM BLOOD(Performed 09/10/2012) * PHOSPHORUS BLOOD(Performed 09/10/2012) * GLUCOSE ACCUCHECK(Performed 09/10/2012) * GLUCOSE ACCUCHECK(Performed 09/09/2012) * US RETROPERITONEAL COMPLETE(Performed 09/09/2012) * GLUCOSE ACCUCHECK(Performed 09/09/2012) * GLUCOSE ACCUCHECK(Performed 09/09/2012) * GLUCOSE ACCUCHECK(Performed 09/09/2012) * CT CHEST ABDOMEN PELVIS W CONT(Performed 09/09/2012) * CT BRAIN STROKE(Performed 09/09/2012) * GLUCOSE ACCUCHECK(Performed 09/09/2012) * MAGNESIUM BLOOD(Performed 09/09/2012) * PHOSPHORUS BLOOD(Performed 09/09/2012) * CBC W AUTO DIFFERENTIAL(Performed 09/09/2012) * BASIC METABOLIC PANEL (CALCIUM TOTAL)(Performed 09/09/2012) * GLUCOSE ACCUCHECK(Performed 09/08/2012) * XR ABDOMEN KUB PORTABLE(Performed 09/08/2012) * MRI BRAIN WO CONTRAST(Performed 09/08/2012) * MRI ANGIO NECK W CONTRAST(Performed 09/08/2012) * MRI ANGIO BRAIN ARTERIAL WO CONT(Performed 09/08/2012) * IR ANGIO EXTREMITY PROCEDURAL CODE(Performed 09/08/2012) * IR ANGIO EXTREMITY PROCEDURAL CODE(Performed 09/08/2012) * IR ANGIO EXTREMITY PROCEDURAL CODE(Performed 09/08/2012) * IR VASCULAR CLOSURE DEVICE(Performed 09/08/2012) * IR ANGIO VERTEBRAL CERVICAL INTRACRANIAL(Performed 09/08/2012) * IR CAROTID EXTERNAL LEFT(Performed 09/08/2012) * IR ANGIO CAROTID CEREBRAL BILAT [place](Performed 09/08/2012) * IR ANGIO CAROTID CERVICAL BILAT [place](Performed 09/08/2012) * CT HEAD WO CONTRAST(Performed 09/08/2012) * PHOSPHORUS BLOOD(Performed 09/08/2012) * MAGNESIUM BLOOD(Performed 09/08/2012) * BASIC METABOLIC PANEL (CALCIUM TOTAL)(Performed 09/08/2012) * CBC W AUTO DIFFERENTIAL(Performed 09/08/2012) * PHOSPHORUS BLOOD(Performed 09/07/2012) * MAGNESIUM BLOOD(Performed 09/07/2012) * LIPID PROFILE(Performed 09/07/2012) * COMPREHENSIVE METABOLIC PANEL(Performed 09/07/2012) * HEMOGLOBIN A1C(Performed 09/07/2012) * TROPONIN I(Performed 09/07/2012) * CK + CKMB PANEL(Performed 09/07/2012) * CBC W AUTO DIFFERENTIAL(Performed 09/07/2012) * TROPONIN I(Performed 09/07/2012) * CK + CKMB PANEL(Performed 09/07/2012) * BASIC METABOLIC PANEL (CALCIUM TOTAL)(Performed 09/07/2012) * URINALYSIS REFLEX TO MICROSCOPIC NO CULTURE(Performed 09/07/2012) * DRUG ABUSE PANEL 10-20+ETHANOL URINE NO CONFIRM(Performed 09/07/2012) * URINALYSIS REFLEX TO MICROSCOPIC NO CULTURE(Performed 09/07/2012) * TSH(Performed 09/07/2012) * MRI ANGIO NECK W CONTRAST(Performed 09/06/2012) * MRI ANGIO BRAIN ARTERIAL WO CONT(Performed 09/06/2012) * MRI BRAIN WWO CONTRAST(Performed 09/06/2012) Results * DERMATOPATHOLOGY (12/15/2019 12:00 AM [employer]) Only the most recent of3 resultswithin the time period is included. Case Report Dermatopathology Report Case: [id number] Authorizing Provider: Renée Boston MD Collected: 12/15/2019 12:00 AM Ordering Location: [facility] DermPath Lab Received: 12/18/2019 07:56 AM Pathologist: Gee Bautista MD Specimen: Skin, left FA 0 1:23 PM [facility] [[email or web address]] DERMATOPATHOLOGY LABORATORY Final Diagnosis Specimen A. SKIN, left FA: BENIGN VERRUCOUS KERATOSIS, INFLAMED (L82.1) OVERLYING CUTANEOUS HORN (L85.8) 0 1:23 PM [facility] [[email or web address]] DERMATOPATHOLOGY LABORATORY Clinical History SCC. Growing. 0 1:23 PM [employer] DERMATOPATHOLOGY LABORATORY Gross Description Specimen A: Received is one formalin filled container labeled with the patient's name and designated left FA. The specimen consists of a shave measuring [id number], bisected. Jar 0. 0 1:23 PM [facility] [[email or web address]] DERMATOPATHOLOGY LABORATORY Microscopic Description Specimen A. SKIN, left FA: Sections show hyperkeratosis, papillomatosis, hypergranulosis, and acanthosis. Inflammatory cells are present within the dermis. These histological findings can be seen in a verruca vulgaris or a seborrheic keratosis. There is a column of marked compact hyperkeratosis. 0 1:23 PM [facility] [[email or web address]] DERMATOPATHOLOGY LABORATORY Disclaimer An external and internal positive and negative controls are appropriate for the histochemical, immunohistochemical and immunofluorescence stain(s) in this case (if any), except where stated explicitly. The performance characteristics of the stain(s) cited in this report were developed and its performance characteristic determined by the Dermatopathology Laboratory at [facility], directed by Dr. Marie Bautista. These tests need not be, and therefore are not, approved by the [place] Food and Drug Administration. The tests are used for clinical purposes. Billing Codes Specimen Charges Stain Charges 25435 1 0 1:23 PM [employer] DERMATOPATHOLOGY LABORATORY Embedded Images 0 1:23 PM [employer] DERMATOPATHOLOGY LABORATORY Pathology/Cytolog y TISSUE SPECIMEN FROM SKIN / Unknown 12/15/2019 12/18/2019 7:56 AM [employer] Renée Boston MD LAB - PATHOLOGY/CYT OLOGY ORDERABLES DERMATOPATHOLOGY LABORATORY [facility] - Department of Dermatology [address] [place] [address], 5th Floor Lab [address] [phone] * (ABNORMAL) CBC W AUTO DIFFERENTIAL (09/16/2012 4:45 AM [employer]) Only the most recent of9 resultswithin the time period is included. WBC 13.0(H) 3.5 - 10.5 10^3/uL [facility] Comment:CHECKED RBC 4.13 3.90 - 5.00 10^6/uL [facility] Hemoglobin 12.4 12.0 - 15.5 g/dL [facility] Hematocrit 37.2 35.0 - 45.0 % [facility] MCV 90.1 81.0 - 97.0 FL [facility] MCH 30.0 28.0 - 34.0 PG [facility] MCHC 33.3 32.0 - 36.0 G/DL [facility] Platelet 216 150 - 400 10^3/uL [facility] RDW 14.5 11.2 - 14.8 % [facility] RDW-SD 47.7 36 - 50 FL [facility] MPV 11.2 9.3 - 12.8 FL [facility] Neutrophils % 70.4(H) 35.0 - 70.0 % [facility] Lymphocytes % 18.5(L) 19.7 - 55.1 % [facility] Monocytes % 8.9 3 - 15 % [facility] Eosinophils % 2.1 0.0 - 6.0 % [facility] Basophils % 0.1 0.0 - 1.5 % [facility] Neutrophils Absolute 9.2(H) 1.7 - 7.0 10^3/uL [facility] Lymphocyte Absolute 2.4 0.8 - 2.9 10^3/uL [facility] Monocytes Absolute 1.2(H) 0.14 - 0.66 10^3/uL [facility] Eosinophils Absolute 0.27(H) 0.00 - 0.22 10^3/uL [facility] Basophils Absolute 0.01(L) 0.02 - 0.06 10^3/uL [facility] Differential Type AUTO DIFFERENTIAL [facility] Venous blood specimen (specimen) 09/16/2012 4:45 AM [employer] 09/16/2012 5:12 AM [employer] Zayra Webster MD LAB - HEMATOLOGY ORD ERABLES Performing Organization Address City/State/[facility] Co de Phone Number [address] [phone] * (ABNORMAL) BASIC METABOLIC PANEL (CALCIUM TOTAL) (09/16/2012 4:45 AM [employer]) Only the most recent of9 resultswithin the time period is included. BUN 16 7 - 26 mg/dL [facility] Creatinine 1.0 0.6 - 1.2 mg/dL [facility] eGFR by MDRD 57 ML/MIN [facility] Comment: Chronic kidney disease: <60 ml/min Kidney failure: <15 ml/min Based on BSA of 1.73m2. Sodium 143 136 - 145 mmol/L [facility] Potassium 3.3(L) 3.5 - 4.5 mmol/L [facility] Chloride 104 98 - 107 mmol/L [facility] CO2 30(H) 22 - 29 mmol/L [facility] Glucose 89 70 - 115 mg/dL [facility] Calcium 9.2 8.4 - 10.2 mg/dL [facility] Anion Gap 12 8 - 18 [facility] BUN/Creatinine Ratio 16 7 - 23 [facility] Osmolality Calculation 280 270 - 300 mOsm/kg [facility] Venous blood specimen (specimen) 09/16/2012 4:45 AM [employer] 09/16/2012 5:12 AM [employer] Zayra Webster MD LAB - CHEMISTRY [facility] [address] [phone] * PHOSPHORUS BLOOD (09/16/2012 4:45 AM [employer]) Only the most recent of10 resultswithin the time period is included. Phosphorus 4.0 2.3 - 4.7 mg/dL [facility] Serum 09/16/2012 4:45 AM [employer] 09/16/2012 5:12 AM [employer] Zayra Webster MD LAB - CHEMISTRY [facility]ORES Performing Organization Address [facility]/ZIP Co de Phone Number [address] [phone] * MAGNESIUM BLOOD (09/16/2012 4:45 AM [employer]) Only the most recent of10 resultswithin the time period is included. Magnesium 1.9 1.6 - 2.6 mg/dL [facility] Serum 09/16/2012 4:45 AM [employer] 09/16/2012 5:12 AM [employer] Zayra Webster MD LAB - CHEMISTRY [facility] [address] [phone] * GLUCOSE ACCUCHECK (09/15/2012 5:57 AM [employer]) Only the most recent of27 resultswithin the time period is included. Glucose, Fingerstick 89 70 - 110 MG/DL [facility] Comment:PERFORMED BY: EDITA MENDEZ 09/15/2012 5:57 AM [employer] 09/15/2012 7:12 AM [employer] Zayra Webster MD LAB - CHEMISTRY [facility]ORES Performing Organization Address City/State/[facility] Co de Phone Number [address] [phone] * PET CT WHOLE BODY (09/13/2012 8:57 AM [employer]) Anatomical Region Laterality Modality Other Impressions 09/12/2012 5:42 PM [employer] IMPRESSION: 1. No definite FDG avid lesion to suggest a primary malignancy. 2. Non-FDG avid lesion in the left frontal lobe with surrounding edema as above, consistent with MRI findings. 3. Linearly increased metabolic activity along the right iliacus muscle as well as focal in the right iliopsoas as above, more likely inflammatory. In the absence of the other primary lesion, recommend further evaluation. This report was approved by Hermann Mesa on 09/12/2012 4:13 PM . I, Dr. WILFRED GALEAS M.D. have personally reviewed and interpreted this examination/study. This report was electronically signed by WILFRED GALEAS M.D. on 09/12/2012 5:42 PM . Narrative 09/12/2012 5:42 PM [employer] Procedure: PET/CT Study. Referring Physician: Dr. Webster HISTORY: 62-year-old female with a history of left frontal hemorrhage with worsening right hemiparesis. Brain MRI from 09/09/2012 demonstrated a new 8 mm focus of nodular enhancement in the posterolateral aspect of the intraparenchymal hematoma which could be related to hemorrhage or may represent malignancy. CT from 09/09/2012 demonstrated a left adrenal nodule and hypodense renal lesions. There has been no biopsy or treatment. Evaluate for initial treatment strategy. TECHNIQUE: 10.5 mCi of F-18 FDG by IV in the right hand. PET/CT image acquisition from top of the head to the feet after approx. 60 minutes post-injection with the CT being low-dose, non-contrast. No separate report for the CT was generated since it was of non-diagnostic quality. Blood glucose level at the time of injection was 96 mg/dl. FINDINGS: No prior PET/CT is available for comparison. Head and neck: A multilobulated lesion in the left frontal lobe measuring 2.3 x 2.5 cm with surrounding edema and photopenia on PET. Smaller satellite nodules are present. No abnormal FDG avid cervical lymph nodes. Chest: The lungs are clear with no evidence of pneumothorax or pleural effusion. Minimal bibasilar atelectasis. No abnormal FDG avid mediastinal lymph nodes. Abdomen and pelvis: The liver, kidneys, adrenal glands, spleen and pancreas are unremarkable. Benign-appearing bilateral inguinal lymph nodes. For reference, SUVmax of liver is 2.0. Musculoskeletal: Linearly increased metabolic activity along the right hip muscle (likely iliacus) with SUV max 6.9, likely inflammatory. Focal FDG uptake is also identified in the right iliopsoas muscle. Procedure Note Wilfred Galeas MD - 01/30/2018 Procedure: PET/CT Study. Referring Physician: Dr. Webster HISTORY: 62-year-old female with a history of left frontal hemorrhage withworsening right hemiparesis. Brain MRI from 09/09/2012 demonstrated a new 8mm focus of nodular enhancement in the posterolateral aspect of theintraparenchymal hematoma which could be related to hemorrhage or may represent malignancy. CT from09/09/2012 demonstrated a left adrenal nodule and hypodense renal lesions.There has been no biopsy or treatment. Evaluate for initial treatmentstrategy. TECHNIQUE: 10.5 mCi of F-18 FDG by IV in the right hand. PET/CT imageacquisition from top of the head to the feet after approx. 60 minutespost-injection with the CT being low-dose, non-contrast. No separatereport for the CT was generated since it was of non-diagnostic quality. Blood glucose level at the time of injectionwas 96 mg/dl. FINDINGS: No prior PET/CT is available for comparison. Head and neck: A multilobulated lesion in the left frontal lobe measuring2.3 x 2.5 cm with surrounding edema and photopenia on PET. Smallersatellite nodules are present. No abnormal FDG avid cervical lymphnodes. Chest: The lungs are clear with no evidence of pneumothorax or pleuraleffusion. Minimal bibasilar atelectasis. No abnormal FDG avid mediastinallymph nodes. Abdomen and pelvis: The liver, kidneys, adrenal glands, spleen andpancreas are unremarkable. Benign-appearing bilateral inguinal lymphnodes. For reference, SUVmax of liver is 2.0. Musculoskeletal: Linearly increased metabolic activity along the right hipmuscle (likely iliacus) with SUV max 6.9, likely inflammatory. Focal FDGuptake is also identified in the right iliopsoas muscle. IMPRESSION IMPRESSION: 1. No definite FDG avid lesion to suggest a primary malignancy. 2. Non-FDG avid lesion in the left frontal lobe with surrounding edema asabove, consistent with MRI findings. 3. Linearly increased metabolic activity along the right iliacus muscle aswell as focal in the right iliopsoas as above, more likely inflammatory.In the absence of the other primary lesion, recommend furtherevaluation. This report was approved by Hermann Mesa on 09/12/2012 4:13 PM . I, Dr. WILFRED GALEAS M.D. have personally reviewed and interpreted thisexamination/study. This report was electronically signed by WILFRED GALEAS M.D. on 09/12/20125:42 PM . Zayra Webster MD [place] ORDERABLES * GLUCOSE - POINT OF CARE (AMB) U (09/12/2012 2:02 PM [employer]) Only the most recent of2 resultswithin the time period is included. Zayra Webster MD LAB - POINT OF CARE ORDERABLES [facility] * US RETROPERITONEAL COMPLETE (09/09/2012 5:35 PM [employer]) Anatomical Region Laterality Modality Abdomen Other Impressions 09/12/2012 12:21 PM [employer] Impression: 1. Subcentimeter hypoechoic lesions involving the right and left kidneys. These likely represent complex cysts. Renal protocol CT followup in 6 months is recommended to exclude solid renal mass and establish stability. 2. Echogenic debris within the bladder. This report was approved by Guillermina Bolaños on 09/12/2012 11:50 AM . I, Dr. FARIDA DAHL M.D. have personally reviewed and interpreted this examination/study. This report was electronically signed by FRAIDA DAHL M.D. on 09/12/2012 12:21 PM . Narrative 09/12/2012 12:21 PM [employer] Exam: Retroperitoneal ultrasound Date: 09/09/2012 History: Followup to abnormal CT showing hyperechoic renal lesions. The patient has questionable brain mass. Technique: Real time and color-flow Doppler ultrasound of the kidneys Findings:: Right kidney : 10.0 x 4.6 x 4.5cm Left kidney:9.3 x 5.0 x 4.9cm An 8 mm hypoechoic lesion involves the mid right kidney laterally. No color-flow is demonstrated to this lesion. Definite posterior enhancement is however not demonstrated. A 0.9 x 0.9 x 0.7 cm hypoechoic lesion with similar characteristics involves the mid left kidney. The renal parenchymal echogenicity is overall normal. No hydronephrosis is present. Arterial flow is demonstrated to both kidneys. The main renal veins are patent. Small amount of echogenic debris layers within the dependent aspect of the bladder. Procedure Note Farida Dahl MD - 01/30/2018 Exam: Retroperitoneal ultrasound Date: 09/09/2012 History: Followup to abnormal CT showing hyperechoic renal lesions. Thepatient has questionable brain mass. Technique: Real time and color-flow Doppler ultrasound of the kidneys Findings:: Right kidney : 10.0 x 4.6 x 4.5cm Left kidney:9.3 x 5.0 x 4.9cm An 8 mm hypoechoic lesion involves the mid right kidney laterally. Nocolor-flow is demonstrated to this lesion. Definite posterior enhancementis however not demonstrated. A 0.9 x 0.9 x 0.7 cm hypoechoic lesion withsimilar characteristics involves the mid left kidney. The renal parenchymal echogenicity is overall normal. No hydronephrosis ispresent. Arterial flow is demonstrated to both kidneys. The main renalveins are patent. Small amount of echogenic debris layers within the dependent aspect of thebladder. IMPRESSION Impression: 1. Subcentimeter hypoechoic lesions involving the right and left kidneys.These likely represent complex cysts. Renal protocol CT followup in 6months is recommended to exclude solid renal mass and establishstability. 2. Echogenic debris within the bladder. This report was approved by Guillermina Bolaños on 09/12/2012 11:50AM . Dr. FARIDA Fiore M.D. have personally reviewed and interpreted thisexamination/study. This report was electronically signed by FARIDA DAHL M.D. on 09/12/201212:21 PM . Zayra Webster MD ORDERABLES * CT BRAIN STROKE PROTOCOL (09/09/2012 5:11 AM [employer]) Anatomical Region Laterality Modality Head Other Impressions 09/09/2012 12:21 PM [employer] IMPRESSION: 1. Left frontal intraparenchymal hemorrhage, unchanged. This report was approved by Xavier Gilliam on 09/09/2012 11:[address] SMITH Fiore M.D. have personally reviewed and interpreted this examination/study. This report was electronically signed by SMITH CARDONA M.D. on 09/09/2012 12:21 PM . Narrative 09/09/2012 12:21 PM [employer] EXAMINATION: Computed tomography (CT) of the head without contrast HISTORY: Followup intracranial hemorrhage TECHNIQUE: CT of the head was performed without contrast according to standard protocol. Comparison is made with CT head from 09/08/12. FINDINGS: Left frontal intraparenchymal hemorrhage with surrounding region of cystic edema is stable in size. Minimal mass effect on the left lateral ventricle is noted. Otherwise, the ventricles are of normal size, shape, and morphology. The basal cisterns are patent. No mass effect or midline shift is seen. The lou-white matter differentiation is normal. 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 The visualized portions of the orbits, paranasal sinuses, and mastoids appear normal. No no osteolytic or osteoblastic lesions are identified. Procedure Note Provider, MD Braulio - 01/30/2018 EXAMINATION: Computed tomography (CT) of the head without contrast HISTORY: Followup intracranial hemorrhage TECHNIQUE: CT of the head was performed without contrast according tostandard protocol. Comparison is made with CT head from 09/08/12. FINDINGS: Left frontal intraparenchymal hemorrhage with surrounding region of cysticedema is stable in size. Minimal mass effect on the left lateral ventricleis noted. Otherwise, the ventricles are of normal size, shape, andmorphology. The basal cisterns are patent. No mass effect or midline shift is seen. The lou-white matterdifferentiation is normal. Old lacunar infarcts and calcifications areseen within the bilateral basal ganglia. The visualized portions of theorbits, paranasal sinuses, and mastoids appear normal. No no osteolytic or osteoblastic lesions are identified. IMPRESSION IMPRESSION: 1. Left frontal intraparenchymal hemorrhage, unchanged. This report was approved by Xavier Gilliam on 09/09/2012 11:[address] SMITH Fiore M.D. have personally reviewed and interpreted thisexamination/study. This report was electronically signed by SMITH CARDONA M.D. on09/09/2012 12:21 PM . Zayra Webster MD CT ORDERABLES * CT CHEST ABDOMEN PELVIS W CONT (09/09/2012 5:11 AM [employer]) Anatomical Region Laterality Modality Chest, Abdomen, Pelvis Other Impressions 09/09/2012 4:27 PM [employer] IMPRESSION: Inhomogeneous thyroid with a hypodense right thyroid lobe lesion. Ultrasound is recommended for further evaluation. Left adrenal nodule. A noncontrast CT or MRI adrenal protocol is recommended. Hypodense renal lesions, do not all measure simple cystic density. Ultrasound is recommended. Findings discussed with Dr. Cardona on 09/09/12 at 10:35 am. This report was approved by Christina Yoon on 09/09/2012 10:[address] Gonzalo Fiore M.D. have personally reviewed and interpreted this examination/study. This report was electronically signed by Gonzalo RASCON M.D. on 09/09/2012 4:27 PM . Narrative 09/09/2012 4:27 PM [employer] EXAMINATION: Computed tomography of the chest, abdomen, and pelvis with contrast HISTORY: Malignancy workup TECHNIQUE: Computed tomography of the chest, abdomen, and pelvis was performed following the uneventful administration of 100 mL intravenous contrast according to standard protocol. FINDINGS: No prior study is available for comparison. Chest Findings: The lungs are free of focal consolidations. Bibasilar dependent atelectasis is seen. No suspicious pulmonary nodules are visible. There is no pleural effusion or pneumothorax. There is no supraclavicular, axillary, mediastinal or hilar lymphadenopathy. Subcentimeter mediastinal lymph nodes are seen. The left-sided aortic arch is normal in course and caliber. The pulmonary arteries normal in course and caliber. The remaining enhanced vascular structures are normal. The heart size is within normal limits. There is no pericardial effusion. There is a 7 mm hypodense lesion in the right thyroid lobe. There is diffuse inhomogeneity of the thyroid. Abdomen and Pelvis Findings: The liver enhances homogenously. No focal intrahepatic lesions are seen. There is vicarious excretion of contrast within the gallbladder .The gallbladder is normal without evidence of gallstones gallbladder wall thickening. There is no intrahepatic or extrahepatic biliary ductal dilatation. The spleen has been irregular contour but enhances homogeneously. A small splenule is noted. The pancreas and right adrenal gland are normal. A left adrenal nodule is seen measuring up to 1.5 cm. There are small bilateral hypodense lesions on the kidneys which do not all measure simple cystic density. Otherwise, the kidneys enhance symmetrically bilaterally. There is no hydronephrosis. The proximal ureters are mildly prominent, likely related to peristalsis. An enteric tube terminates in the second portion of the duodenum. The stomach, small bowel and large bowel are normal in course and caliber without evidence of bowel wall thickening or bowel obstruction. A normal appendix is seen in the right lower quadrant. There is no evidence of retroperitoneal lymphadenopathy. The abdominal aorta is normal in course and caliber. Minimal atherosclerotic calcification is seen in the iliac arteries. The remaining enhanced abdominal vascular structures are normal. The bladder is markedly distended with fluid and contrast. The uterus is present. There is a trace amount of free fluid in the pelvis. Bone windows demonstrate no suspicious lytic or blastic lesions. Mild degenerative changes are seen in the thoracolumbar spine. Procedure Note Jeanna Rascon MD - 01/30/2018 EXAMINATION: Computed tomography of the chest, abdomen, and pelvis withcontrast HISTORY: Malignancy workup TECHNIQUE: Computed tomography of the chest, abdomen, and pelvis wasperformed following the uneventful administration of 100 mL intravenouscontrast according to standard protocol. FINDINGS: No prior study is available for comparison. Chest Findings: The lungs are free of focal consolidations. Bibasilar dependentatelectasis is seen. No suspicious pulmonary nodules are visible. There isno pleural effusion or pneumothorax. There is no supraclavicular, axillary, mediastinal or hilarlymphadenopathy. Subcentimeter mediastinal lymph nodes are seen. The left-sided aortic arch is normal in course and caliber. The pulmonaryarteries normal in course and caliber. The remaining enhanced vascularstructures are normal. The heart size is within normal limits. There is no pericardialeffusion. There is a 7 mm hypodense lesion in the right thyroid lobe. There isdiffuse inhomogeneity of the thyroid. Abdomen and Pelvis Findings: The liver enhances homogenously. No focal intrahepatic lesions are seen.There is vicarious excretion of contrast within the gallbladder .Thegallbladder is normal without evidence of gallstones gallbladder wallthickening. There is no intrahepatic or extrahepatic biliary ductal dilatation. The spleen has been irregularcontour but enhances homogeneously. A small splenule is noted. Thepancreas and right adrenal gland are normal. A left adrenal nodule is seenmeasuring up to 1.5 cm. There are small bilateral hypodense lesions on the kidneys which do not all measure simplecystic density. Otherwise, the kidneys enhance symmetrically bilaterally.There is no hydronephrosis. The proximal ureters are mildly prominent,likely related to peristalsis. An enteric tube terminates in the second portion of the duodenum. Thestomach, small bowel and large bowel are normal in course and caliberwithout evidence of bowel wall thickening or bowel obstruction. A normalappendix is seen in the right lower quadrant. There is no evidence of retroperitoneal lymphadenopathy. Theabdominal aorta is normal in course and caliber. Minimal atheroscleroticcalcification is seen in the iliac arteries. The remaining enhancedabdominal vascular structures are normal. The bladder is markedly distended with fluid and contrast. The uterus ispresent. There is a trace amount of free fluid in the pelvis. Bone windows demonstrate no suspicious lytic or blastic lesions. Milddegenerative changes are seen in the thoracolumbar spine. IMPRESSION IMPRESSION: Inhomogeneous thyroid with a hypodense right thyroid lobe lesion.Ultrasound is recommended for further evaluation. Left adrenal nodule. A noncontrast CT or MRI adrenal protocol isrecommended. Hypodense renal lesions, do not all measure simple cystic density.Ultrasound is recommended. Findings discussed with Dr. Cardona on 09/09/12 at 10:35 am. This report was approved by Christina Yoon on 09/09/2012 10:38 AM . IDr. Gonzalo M.D. have personally reviewed and interpreted thisexamination/study. This report was electronically signed by Gonzalo RASCON M.D. on09/09/2012 4:27 PM . Zayra Webster MD CT ORDERABLES * XR ABDOMEN KUB PORTABLE (09/08/2012 8:54 PM [employer]) Anatomical Region Laterality Modality Other Impressions 09/09/2012 8:43 AM [employer] Impression: Nasogastric tube ending in the gastric antrum/duodenal bulb. Dictated by Tomás Horne MD (Resident). Dr. FARIDA Fiore M.D. have personally reviewed and interpreted this examination/study. This report was electronically signed by FARIDA DAHL M.D. on 09/09/2012 8:43 AM . Narrative 09/09/2012 8:43 AM [employer] Exam: PX ABDOMEN 1 VW Date: 09/08/2012 History: NGT placement Comparison: No prior study is available for comparison. Findings: The nasogastric tube tip ends in the gastric antrum/duodenal bulb. Procedure Note Farida Dahl MD - 01/30/2018 Exam: PX ABDOMEN 1 VW Date: 09/08/2012 History: NGT placement Comparison: No prior study is available for comparison. Findings: The nasogastric tube tip ends in the gastric antrum/duodenal bulb. IMPRESSION Impression: Nasogastric tube ending in the gastric antrum/duodenal bulb. Dictated by Tomás Horne MD (Resident). Dr. FARIDA Fiore M.D. have personally reviewed and interpreted thisexamination/study. This report was electronically signed by FARIDA DAHL M.D. on 09/09/20128:43 AM . Zayra Webster MD DIAGNOSTIC IMAGING O RDERABLES * MRI BRAIN WO CONTRAST (09/08/2012 7:11 PM [employer]) Anatomical Region Laterality Modality Head Other Impressions 09/09/2012 12:29 PM [employer] IMPRESSION: 1.Subacute left frontal intraparenchymal hemorrhage with new small foci of subacute hemorrhage posteriorly. No significant midline shift or hydrocephalus. 2. New 8 mm focus of nodular enhancement in the posterolateral aspect of the intraparenchymal hematoma. Although this would be an atypical appearance, this could be related to the hemorrhage or alternatively it may represent a mass such as metastasis which did not enhance on the prior study. Septic emboli and vascular lesions are thought to be less likely. Followup MRI is recommended in 3-4 weeks. 3. 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 In retrospect, these were present on prior study, though not as well demonstrated due to motion artifact. 4. No large vessel occlusion. Findings D/W Dr. Iverson on 09/09/2012 at 10:45am. This report was approved by Nathan Pollack on 09/09/2012 10:46 AM . I, Dr. NOEL SMITH M.D. have personally reviewed and interpreted this examination/study. This report was electronically signed by NOEL SMITH M.D. on 09/09/2012 12:29 PM . Narrative 09/09/2012 12:29 PM [employer] EXAMINATION: 1. Magnetic resonance imaging (MRI) of the brain with and without contrast 2. Magnetic resonance angiography (MRA) of the head and neck with and without contrast HISTORY: 62-year-old female with left frontal hemorrhage with worsening right hemiparesis after angiogram. TECHNIQUE: MRI of the brain was performed without contrast and after the uneventful administration of 15 mL MultiHance contrast according to standard protocol. MRA of the zmvaab-uy-Ssgpdd and neck was performed using a pasl-ro-hlsnfa technique without contrast. FINDINGS: Comparison is made to prior MRI brain, MRA head and MRA neck 09/06/2012 Brain: The main portion of the left frontal intraparenchymal hemorrhage is grossly unchanged again measuring approximately 3.0 x 2.3 cm. The hemorrhage is now hypointense on T2 and iso-/hyperintense on T1 consistent with early subacute hemorrhage. There is a new smaller focus of hemorrhage posteriorly measuring 7 mm x 6 mm which has similar signal characteristics and is also likely subacute. The degree of surrounding vasogenic edema has increased slightly but there is no evidence of hydrocephalus or midline shift. There is a new 8 mm nodular focus of enhancement just posterior to the large area of hemorrhage and adjacent to the new small focus of hemorrhage. There are small foci of susceptibility artifact in the left cerebellum, and posterior limb of the left internal capsule No evidence of acute cerebral infarction is seen. Periventricular T2 hyperintensity again thought to represent chronic microvascular ischemic disease. Several small lacunar infarcts are again seen within the left caudate head, right putamen and anterior limb of the right internal capsule. The corpus callosum and sella appear normal. The posterior fossa, brainstem, and craniocervical junction appear normal. The visualized portions of the orbits, mastoids and paranasal sinuses appear normal. Normal flow voids are demonstrated in the carotid arteries and basilar artery. The calvarium and visualized cervical spine appear normal. Angiographic findings: The aorta and subclavian arteries have a normal appearance. There is atherosclerotic disease at the carotid bifurcations without hemodynamically significant narrowing. There is no hemodynamically significant narrowing involving the cervical carotid arteries. There is mild narrowing at the origin of the left vertebral artery. Otherwise there is no hemodynamically significant stenosis involving the cervical vertebral arteries. There is a 3 mm aneurysm arising from the lateral aspect of the left cavernous ICA. There is also a 3 mm aneurysm arising from the left supraclinoid ICA, projecting superiorly. There is a 4 mm superiorly projecting aneurysm arising from the right supraclinoid ICA. Retrospectively these were present on the prior study, but were not as well demonstrated due to motion artifact. Otherwise The distal internal carotid arteries as well as the anterior and middle cerebral arteries appear normal. The distal vertebral arteries, the basilar artery, and the posterior cerebral arteries appear normal. No intracranial stenoses are identified. Procedure Note Noel Smith MD - 01/30/2018 EXAMINATION: 1. Magnetic resonance imaging (MRI) of the brain with and withoutcontrast 2. Magnetic resonance angiography (MRA) of the head and neck with andwithout contrast HISTORY: 62-year-old female with left frontal hemorrhage with worseningright hemiparesis after angiogram. TECHNIQUE: MRI of the brain was performed without contrast and after theuneventful administration of 15 mL MultiHance contrast according tostandard protocol. MRA of the asetbk-gn-Rfgkqh and neck was performedusing a ckej-rc-guutbf technique without contrast. FINDINGS: Comparison is made to prior MRI brain, MRA head and MRA neck09/06/2012 Brain: The main portion of the left frontal intraparenchymal hemorrhage isgrossly unchanged again measuring approximately 3.0 x 2.3 cm. Thehemorrhage is now hypointense on T2 and iso-/hyperintense on T1 consistentwith early subacute hemorrhage. There is a new smaller focus of hemorrhage posteriorly measuring 7 mm x 6 mm whichhas similar signal characteristics and is also likely subacute. The degreeof surrounding vasogenic edema has increased slightly but there is noevidence of hydrocephalus or midline shift. There is a new 8 mm nodular focus of enhancement just posterior tothe large area of hemorrhage and adjacent to the new small focus ofhemorrhage. There are small foci of susceptibility artifact in the left cerebellum,and posterior limb of the left internal capsule No evidence of acutecerebral infarction is seen. Periventricular T2 hyperintensity againthought to represent chronic microvascular ischemic disease. Several small lacunar infarcts are again seen within theleft caudate head, right putamen and anterior limb of the right internalcapsule. The corpus callosum and sella appear normal. The posterior fossa,brainstem, and craniocervical junction appear normal. The visualized portions of the orbits, mastoids and paranasal sinusesappear normal. Normal flow voids are demonstrated in the carotid arteriesand basilar artery. The calvarium and visualized cervical spine appearnormal. Angiographic findings: The aorta and subclavian arteries have a normal appearance. There isatherosclerotic disease at the carotid bifurcations withouthemodynamically significant narrowing. There is no hemodynamicallysignificant narrowing involving the cervical carotid arteries. There is mild narrowing at the origin of the left vertebralartery. Otherwise there is no hemodynamically significant stenosisinvolving the cervical vertebral arteries. There is a 3 mm aneurysm arising from the lateral aspect of the leftcavernous ICA. There is also a 3 mm aneurysm arising from the leftsupraclinoid ICA, projecting superiorly. There is a 4 mm superiorlyprojecting aneurysm arising from the right supraclinoid ICA. Retrospectively these were present on the prior study,but were not as well demonstrated due to motion artifact. Otherwise Thedistal internal carotid arteries as well as the anterior and middlecerebral arteries appear normal. The distal vertebral arteries, the basilar artery, and the posterior cerebralarteries appear normal. No intracranial stenoses are identified. IMPRESSION IMPRESSION: 1.Subacute left frontal intraparenchymal hemorrhage with new small foci ofsubacute hemorrhage posteriorly. No significant midline shift orhydrocephalus. 2. New 8 mm focus of nodular enhancement in the posterolateral aspect ofthe intraparenchymal hematoma. Although this would be an atypicalappearance, this could be related to the hemorrhage or alternatively itmay represent a mass such as metastasis which did not enhance on the prior study. Septic emboli and vascularlesions are thought to be less likely. Followup MRI is recommended in 3-4weeks. 3. 3 mm left cavernous ICA aneurysm, 3 mm left supraclinoid ICA aneurysmand 4 mm right supraclinoid ICA aneurysm. In retrospect, these werepresent on prior study, though not as well demonstrated due to motionartifact. 4. No large vessel occlusion. Findings D/W Dr. Iverson on 09/09/2012 at 10:45am. This report was approved by Nathan Pollack on 09/09/2012 10:46 AM. I, Dr. NOEL SMITH M.D. have personally reviewed and interpreted thisexamination/study. This report was electronically signed by NOEL SMITH M.D. on 09/09/201212:29 PM . Zayra Webster MD MR ORDERABLES * MRI ANGIO NECK W CONTRAST (09/08/2012 7:11 PM [employer]) Only the most recent of2 resultswithin the time period is included. Anatomical Region Laterality Modality Head Other Impressions 09/09/2012 12:29 PM [employer] IMPRESSION: 1.Subacute left frontal intraparenchymal hemorrhage with new small foci of subacute hemorrhage posteriorly. No significant midline shift or hydrocephalus. 2. New 8 mm focus of nodular enhancement in the posterolateral aspect of the intraparenchymal hematoma. Although this would be an atypical appearance, this could be related to the hemorrhage or alternatively it may represent a mass such as metastasis which did not enhance on the prior study. Septic emboli and vascular lesions are thought to be less likely. Followup MRI is recommended in 3-4 weeks. 3. 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 In retrospect, these were present on prior study, though not as well demonstrated due to motion artifact. 4. No large vessel occlusion. Findings D/W Dr. Iverson on 09/09/2012 at 10:45am. This report was approved by Nathan Pollack on 09/09/2012 10:46 AM . I, Dr. NOEL SMITH M.D. have personally reviewed and interpreted this examination/study. This report was electronically signed by NEOL SMITH M.D. on 09/09/2012 12:29 PM . Narrative 09/09/2012 12:29 PM [employer] EXAMINATION: 1. Magnetic resonance imaging (MRI) of the brain with and without contrast 2. Magnetic resonance angiography (MRA) of the head and neck with and without contrast HISTORY: 62-year-old female with left frontal hemorrhage with worsening right hemiparesis after angiogram. TECHNIQUE: MRI of the brain was performed without contrast and after the uneventful administration of 15 mL MultiHance contrast according to standard protocol. MRA of the njftbn-sw-Fcnjkh and neck was performed using a tkwh-wm-ogqqub technique without contrast. FINDINGS: Comparison is made to prior MRI brain, MRA head and MRA neck 09/06/2012 Brain: The main portion of the left frontal intraparenchymal hemorrhage is grossly unchanged again measuring approximately 3.0 x 2.3 cm. The hemorrhage is now hypointense on T2 and iso-/hyperintense on T1 consistent with early subacute hemorrhage. There is a new smaller focus of hemorrhage posteriorly measuring 7 mm x 6 mm which has similar signal characteristics and is also likely subacute. The degree of surrounding vasogenic edema has increased slightly but there is no evidence of hydrocephalus or midline shift. There is a new 8 mm nodular focus of enhancement just posterior to the large area of hemorrhage and adjacent to the new small focus of hemorrhage. There are small foci of susceptibility artifact in the left cerebellum, and posterior limb of the left internal capsule No evidence of acute cerebral infarction is seen. Periventricular T2 hyperintensity again thought to represent chronic microvascular ischemic disease. Several small lacunar infarcts are again seen within the left caudate head, right putamen and anterior limb of the right internal capsule. The corpus callosum and sella appear normal. The posterior fossa, brainstem, and craniocervical junction appear normal. The visualized portions of the orbits, mastoids and paranasal sinuses appear normal. Normal flow voids are demonstrated in the carotid arteries and basilar artery. The calvarium and visualized cervical spine appear normal. Angiographic findings: The aorta and subclavian arteries have a normal appearance. There is atherosclerotic disease at the carotid bifurcations without hemodynamically significant narrowing. There is no hemodynamically significant narrowing involving the cervical carotid arteries. There is mild narrowing at the origin of the left vertebral artery. Otherwise there is no hemodynamically significant stenosis involving the cervical vertebral arteries. There is a 3 mm aneurysm arising from the lateral aspect of the left cavernous ICA. There is also a 3 mm aneurysm arising from the left supraclinoid ICA, projecting superiorly. There is a 4 mm superiorly projecting aneurysm arising from the right supraclinoid ICA. Retrospectively these were present on the prior study, but were not as well demonstrated due to motion artifact. Otherwise The distal internal carotid arteries as well as the anterior and middle cerebral arteries appear normal. The distal vertebral arteries, the basilar artery, and the posterior cerebral arteries appear normal. No intracranial stenoses are identified. Procedure Note Noel Smith MD - 01/30/2018 EXAMINATION: 1. Magnetic resonance imaging (MRI) of the brain with and withoutcontrast 2. Magnetic resonance angiography (MRA) of the head and neck with andwithout contrast HISTORY: 62-year-old female with left frontal hemorrhage with worseningright hemiparesis after angiogram. TECHNIQUE: MRI of the brain was performed without contrast and after theuneventful administration of 15 mL MultiHance contrast according tostandard protocol. MRA of the mcpdnl-lm-Kqhhtf and neck was performedusing a yxxz-wt-oaptcf technique without contrast. FINDINGS: Comparison is made to prior MRI brain, MRA head and MRA neck09/06/2012 Brain: The main portion of the left frontal intraparenchymal hemorrhage isgrossly unchanged again measuring approximately 3.0 x 2.3 cm. Thehemorrhage is now hypointense on T2 and iso-/hyperintense on T1 consistentwith early subacute hemorrhage. There is a new smaller focus of hemorrhage posteriorly measuring 7 mm x 6 mm whichhas similar signal characteristics and is also likely subacute. The degreeof surrounding vasogenic edema has increased slightly but there is noevidence of hydrocephalus or midline shift. There is a new 8 mm nodular focus of enhancement just posterior tothe large area of hemorrhage and adjacent to the new small focus ofhemorrhage. There are small foci of susceptibility artifact in the left cerebellum,and posterior limb of the left internal capsule No evidence of acutecerebral infarction is seen. Periventricular T2 hyperintensity againthought to represent chronic microvascular ischemic disease. Several small lacunar infarcts are again seen within theleft caudate head, right putamen and anterior limb of the right internalcapsule. The corpus callosum and sella appear normal. The posterior fossa,brainstem, and craniocervical junction appear normal. The visualized portions of the orbits, mastoids and paranasal sinusesappear normal. Normal flow voids are demonstrated in the carotid arteriesand basilar artery. The calvarium and visualized cervical spine appearnormal. Angiographic findings: The aorta and subclavian arteries have a normal appearance. There isatherosclerotic disease at the carotid bifurcations withouthemodynamically significant narrowing. There is no hemodynamicallysignificant narrowing involving the cervical carotid arteries. There is mild narrowing at the origin of the left vertebralartery. Otherwise there is no hemodynamically significant stenosisinvolving the cervical vertebral arteries. There is a 3 mm aneurysm arising from the lateral aspect of the leftcavernous ICA. There is also a 3 mm aneurysm arising from the leftsupraclinoid ICA, projecting superiorly. There is a 4 mm superiorlyprojecting aneurysm arising from the right supraclinoid ICA. Retrospectively these were present on the prior study,but were not as well demonstrated due to motion artifact. Otherwise Thedistal internal carotid arteries as well as the anterior and middlecerebral arteries appear normal. The distal vertebral arteries, the basilar artery, and the posterior cerebralarteries appear normal. No intracranial stenoses are identified. IMPRESSION IMPRESSION: 1.Subacute left frontal intraparenchymal hemorrhage with new small foci ofsubacute hemorrhage posteriorly. No significant midline shift orhydrocephalus. 2. New 8 mm focus of nodular enhancement in the posterolateral aspect ofthe intraparenchymal hematoma. Although this would be an atypicalappearance, this could be related to the hemorrhage or alternatively itmay represent a mass such as metastasis which did not enhance on the prior study. Septic emboli and vascularlesions are thought to be less likely. Followup MRI is recommended in 3-4weeks. 3. 3 mm left cavernous ICA aneurysm, 3 mm left supraclinoid ICA aneurysmand 4 mm right supraclinoid ICA aneurysm. In retrospect, these werepresent on prior study, though not as well demonstrated due to motionartifact. 4. No large vessel occlusion. Findings D/W Dr. Iverson on 09/09/2012 at 10:45am. This report was approved by Nathan Pollack on 09/09/2012 10:[address] NOEL Fiore M.D. have personally reviewed and interpreted thisexamination/study. This report was electronically signed by NOEL SMITH M.D. on 09/09/201212:29 PM . Zayra Webster MD MR ORDERABLES * MRI ANGIO BRAIN ARTERIAL WO CONT (09/08/2012 7:11 PM [employer]) Only the most recent of2 resultswithin the time period is included. Anatomical Region Laterality Modality Head Other Impressions 09/09/2012 12:29 PM [employer] IMPRESSION: 1.Subacute left frontal intraparenchymal hemorrhage with new small foci of subacute hemorrhage posteriorly. No significant midline shift or hydrocephalus. 2. New 8 mm focus of nodular enhancement in the posterolateral aspect of the intraparenchymal hematoma. Although this would be an atypical appearance, this could be related to the hemorrhage or alternatively it may represent a mass such as metastasis which did not enhance on the prior study. Septic emboli and vascular lesions are thought to be less likely. Followup MRI is recommended in 3-4 weeks. 3. 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 In retrospect, these were present on prior study, though not as well demonstrated due to motion artifact. 4. No large vessel occlusion. Findings D/W Dr. Iverson on 09/09/2012 at 10:45am. This report was approved by Nathan Pollack on 09/09/2012 10:[address] NOEL Fiore M.D. have personally reviewed and interpreted this examination/study. This report was electronically signed by NOEL SMITH M.D. on 09/09/2012 12:29 PM . Narrative 09/09/2012 12:29 PM [employer] EXAMINATION: 1. Magnetic resonance imaging (MRI) of the brain with and without contrast 2. Magnetic resonance angiography (MRA) of the head and neck with and without contrast HISTORY: 62-year-old female with left frontal hemorrhage with worsening right hemiparesis after angiogram. TECHNIQUE: MRI of the brain was performed without contrast and after the uneventful administration of 15 mL MultiHance contrast according to standard protocol. MRA of the tjxbnh-vl-Keeflz and neck was performed using a riie-dx-rzjogp technique without contrast. FINDINGS: Comparison is made to prior MRI brain, MRA head and MRA neck 09/06/2012 Brain: The main portion of the left frontal intraparenchymal hemorrhage is grossly unchanged again measuring approximately 3.0 x 2.3 cm. The hemorrhage is now hypointense on T2 and iso-/hyperintense on T1 consistent with early subacute hemorrhage. There is a new smaller focus of hemorrhage posteriorly measuring 7 mm x 6 mm which has similar signal characteristics and is also likely subacute. The degree of surrounding vasogenic edema has increased slightly but there is no evidence of hydrocephalus or midline shift. There is a new 8 mm nodular focus of enhancement just posterior to the large area of hemorrhage and adjacent to the new small focus of hemorrhage. There are small foci of susceptibility artifact in the left cerebellum, and posterior limb of the left internal capsule No evidence of acute cerebral infarction is seen. Periventricular T2 hyperintensity again thought to represent chronic microvascular ischemic disease. Several small lacunar infarcts are again seen within the left caudate head, right putamen and anterior limb of the right internal capsule. The corpus callosum and sella appear normal. The posterior fossa, brainstem, and craniocervical junction appear normal. The visualized portions of the orbits, mastoids and paranasal sinuses appear normal. Normal flow voids are demonstrated in the carotid arteries and basilar artery. The calvarium and visualized cervical spine appear normal. Angiographic findings: The aorta and subclavian arteries have a normal appearance. There is atherosclerotic disease at the carotid bifurcations without hemodynamically significant narrowing. There is no hemodynamically significant narrowing involving the cervical carotid arteries. There is mild narrowing at the origin of the left vertebral artery. Otherwise there is no hemodynamically significant stenosis involving the cervical vertebral arteries. There is a 3 mm aneurysm arising from the lateral aspect of the left cavernous ICA. There is also a 3 mm aneurysm arising from the left supraclinoid ICA, projecting superiorly. There is a 4 mm superiorly projecting aneurysm arising from the right supraclinoid ICA. Retrospectively these were present on the prior study, but were not as well demonstrated due to motion artifact. Otherwise The distal internal carotid arteries as well as the anterior and middle cerebral arteries appear normal. The distal vertebral arteries, the basilar artery, and the posterior cerebral arteries appear normal. No intracranial stenoses are identified. Procedure Note Noel Smith MD - 01/30/2018 EXAMINATION: 1. Magnetic resonance imaging (MRI) of the brain with and withoutcontrast 2. Magnetic resonance angiography (MRA) of the head and neck with andwithout contrast HISTORY: 62-year-old female with left frontal hemorrhage with worseningright hemiparesis after angiogram. TECHNIQUE: MRI of the brain was performed without contrast and after theuneventful administration of 15 mL MultiHance contrast according tostandard protocol. MRA of the vrogbm-ta-Hbftjs and neck was performedusing a mspn-bt-yrvylk technique without contrast. FINDINGS: Comparison is made to prior MRI brain, MRA head and MRA neck09/06/2012 Brain: The main portion of the left frontal intraparenchymal hemorrhage isgrossly unchanged again measuring approximately 3.0 x 2.3 cm. Thehemorrhage is now hypointense on T2 and iso-/hyperintense on T1 consistentwith early subacute hemorrhage. There is a new smaller focus of hemorrhage posteriorly measuring 7 mm x 6 mm whichhas similar signal characteristics and is also likely subacute. The degreeof surrounding vasogenic edema has increased slightly but there is noevidence of hydrocephalus or midline shift. There is a new 8 mm nodular focus of enhancement just posterior tothe large area of hemorrhage and adjacent to the new small focus ofhemorrhage. There are small foci of susceptibility artifact in the left cerebellum,and posterior limb of the left internal capsule No evidence of acutecerebral infarction is seen. Periventricular T2 hyperintensity againthought to represent chronic microvascular ischemic disease. Several small lacunar infarcts are again seen within theleft caudate head, right putamen and anterior limb of the right internalcapsule. The corpus callosum and sella appear normal. The posterior fossa,brainstem, and craniocervical junction appear normal. The visualized portions of the orbits, mastoids and paranasal sinusesappear normal. Normal flow voids are demonstrated in the carotid arteriesand basilar artery. The calvarium and visualized cervical spine appearnormal. Angiographic findings: The aorta and subclavian arteries have a normal appearance. There isatherosclerotic disease at the carotid bifurcations withouthemodynamically significant narrowing. There is no hemodynamicallysignificant narrowing involving the cervical carotid arteries. There is mild narrowing at the origin of the left vertebralartery. Otherwise there is no hemodynamically significant stenosisinvolving the cervical vertebral arteries. There is a 3 mm aneurysm arising from the lateral aspect of the leftcavernous ICA. There is also a 3 mm aneurysm arising from the leftsupraclinoid ICA, projecting superiorly. There is a 4 mm superiorlyprojecting aneurysm arising from the right supraclinoid ICA. Retrospectively these were present on the prior study,but were not as well demonstrated due to motion artifact. Otherwise Thedistal internal carotid arteries as well as the anterior and middlecerebral arteries appear normal. The distal vertebral arteries, the basilar artery, and the posterior cerebralarteries appear normal. No intracranial stenoses are identified. IMPRESSION IMPRESSION: 1.Subacute left frontal intraparenchymal hemorrhage with new small foci ofsubacute hemorrhage posteriorly. No significant midline shift orhydrocephalus. 2. New 8 mm focus of nodular enhancement in the posterolateral aspect ofthe intraparenchymal hematoma. Although this would be an atypicalappearance, this could be related to the hemorrhage or alternatively itmay represent a mass such as metastasis which did not enhance on the prior study. Septic emboli and vascularlesions are thought to be less likely. Followup MRI is recommended in 3-4weeks. 3. 3 mm left cavernous ICA aneurysm, 3 mm left supraclinoid ICA aneurysmand 4 mm right supraclinoid ICA aneurysm. In retrospect, these werepresent on prior study, though not as well demonstrated due to motionartifact. 4. No large vessel occlusion. Findings D/W Dr. Iverson on 09/09/2012 at 10:45am. This report was approved by Nathan Pollack on 09/09/2012 10:46 AM. I, Dr. NOEL SMITH M.D. have personally reviewed and interpreted thisexamination/study. This report was electronically signed by NOEL SMITH M.D. on 09/09/201212:29 PM . Zayra Webster MD MR ORDERABLES * IR VASCULAR CLOSURE DEVICE (09/08/2012 2:53 PM [employer]) Anatomical Region Laterality Modality Other Impressions 09/09/2012 3:37 PM [employer] Impression: 1. No evidence of vascular malformation, AVM or AVF. 2. Moderate degree of atherosclerotic disease in L common carotid artery bifurcation which is not hemodynamically significant 3. 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 They indicated understanding and wished to proceed. The patient was brought to the biplane angiography suite where the patient underwent routine prep and drape procedures. A 5F sheath was placed in the right femoral artery and a 5 F TA catheter was navigated into the aortic arch. It was used to select the brachiocephalic artery followed by the right carotid artery and cervical and cerebral angiograms were obtained.The catheter was returned to the arch and used to select the left carotid artery and cervical and cerebral angiograms were obtained. The catheter was advanced to the L ECA over the wire and cerebral angiogram was obtained. The catheter was then returned to the L Common Carotid Artery and a new road map was obtained. The catheter was then advanced to the LICA over the wire and a cerebral angiogram was obtained. The TA catheter was then removed from the sheath and a 5F Edwards 2 catheter was used to select the L subclavian artery. with the cuff inflated over the left arm and angiogram injection was carried out, of the cervical and cerebral part of vertebral artery. The catheter was returned to the arch and used to select the left subclavian artery followed by the left vertebral artery and cervical and cerebral angiograms were obtained. A femoral artery angiogram was obtained through the sheath. All catheters and sheaths were removed from the femoral artery. Hemostasis was achieved using a 6 F closure device. Hemostasis was immediate at the end of the closure procedure. The right dorsalis pedis pulse was palpable at the end of the closure procedure. The patient tolerated the procedure without immediate complications. The patient was returned to the recovery area in a hemodynamically stable condition and neurologically unchanged. Estimated blood loss: negligible Fluoroscopic Time: 16.3min Contrast Utilized: 105 ml An attending endovascular neurosurgeon, Guilherme Lazo, was present throughout the procedure and for the interpretation of the images. Findings: There was good arterial, capillary, and venous opacification on all angiographic runs. The left subclavian artery injection filled the left vertebral artery, it reveals normal V1, V2, V3, and V4 segments. The vertebrobasilar junction, basilar artery, and major vessels to the cerebellum are normal in course and caliber as are the posterior cerebral arteries. The right common carotid artery angiogram reveals a carotid bifurcation that is free of hemodynamically significant atherosclerotic disease or fibromuscular dysplasia. The right internal carotid artery angiogram reveals a petrous, cavernous, and supraclinoid internal carotid artery that is normal in course and caliber as is the carotid terminus. The major dural sinuses and deep cerebral veins are normal in course and caliber. The left common carotid artery angiogram reveals a carotid bifurcation that has a moderate degree of atherosclerotic disease. The left internal carotid artery angiogram reveals a petrous, cavernous, and supraclinoid internal carotid artery that is normal in course and caliber as is the carotid terminus. The major dural sinuses and deep cerebral veins are normal in course and caliber. The femoral artery angiogram shows a puncture site above the femoral bifurcation Procedure Note Guilherme Lazo MD - 01/30/2018 DIAGNOSTIC CEREBRAL ANGIOGRAM REPORT Procedure: Cerebral angiogram Comparison Study: None Indication: The patient is a 62 y/o woman who presented with slurredspeech and r sided weakness and was found to have a L frontal ICH Operators: Guilherme Lazo, Tianna Hill Vessels: L Subclavian artery L Common Carotid Artery L Internal Carotid Artery L External Carotid Artery R Common Carotid Artery R Femoral Artery 6 F Angioseal closure device deployment Anesthesia: Local and IV Sedation Procedural Detail: The risks, benefits, and alternatives to the procedurewere discussed in detail with the patient and her . They indicatedunderstanding and wished to proceed. [facility] the patient underwent routine prep and drape procedures. A 5F sheath wasplaced in the right femoral artery and a 5 F TA catheter was navigatedinto the aortic arch. It was used to select the brachiocephalic arteryfollowed by the right carotid artery and cervical and cerebral angiograms were obtained.The catheter was returnedto the arch and used to select the left carotid artery and cervical andcerebral angiograms were obtained. The catheter was advanced to the L ECAover the wire and cerebral angiogram was obtained. The catheter was then returned to the L CommonCarotid Artery and a new road map was obtained. The catheter was thenadvanced to the LICA over the wire and a cerebral angiogram was obtained.The TA catheter was then removed from the sheath and a 5F Edwards 2 catheter was used to select the L subclavianartery. with the cuff inflated over the left arm and angiogram injectionwas carried out, of the cervical and cerebral part of vertebral artery.The catheter was returned to the arch and used to select the left subclavian artery followed by the leftvertebral artery and cervical and cerebral angiograms were obtained. Afemoral artery angiogram was obtained through the sheath. All catheters and sheaths were removed from the femoral artery. Hemostasiswas achieved using a 6 F closure device. Hemostasis was immediate at theend of the closure procedure. The right dorsalis pedis pulse was palpableat the end of the closure procedure. The patient tolerated the procedure without immediate complications. Thepatient was returned to the recovery area in a hemodynamically stablecondition and neurologically unchanged. Estimated blood loss: negligible Fluoroscopic Time: 16.3min Contrast Utilized: 105 ml An attending endovascular neurosurgeon, Guilherme Lazo, was presentthroughout the procedure and for the interpretation of the images. Findings: There was good arterial, capillary, and venous opacification on allangiographic runs. The left subclavian artery injection filled the left vertebral artery, itreveals normal V1, V2, V3, and V4 segments. The vertebrobasilar junction,basilar artery, and major vessels to the cerebellum are normal in courseand caliber as are the posterior cerebral arteries. The right common carotid artery angiogram reveals a carotid bifurcationthat is free of hemodynamically significant atherosclerotic disease orfibromuscular dysplasia. The right internal carotid artery angiogram reveals a petrous, cavernous,and supraclinoid internal carotid artery that is normal in course andcaliber as is the carotid terminus. The major dural sinuses and deepcerebral veins are normal in course and caliber. The left common carotid artery angiogram reveals a carotid bifurcationthat has a moderate degree of atherosclerotic disease. The left internal carotid artery angiogram reveals a petrous, cavernous,and supraclinoid internal carotid artery that is normal in course andcaliber as is the carotid terminus. The major dural sinuses and deepcerebral veins are normal in course and caliber. The femoral artery angiogram shows a puncture site above the femoralbifurcation IMPRESSION Impression: 1. No evidence of vascular malformation, AVM or AVF. 2. Moderate degree of atherosclerotic disease in L common carotid arterybifurcation which is not hemodynamically significant 3. recommend repeat angiogram after hematoma resolution Zayra Webster MD IR ORDERABLES * IR ANGIO EXTREMITY PROCEDURAL CODE (09/08/2012 2:53 PM MANAGER [employer]) Only the most recent of3 resultswithin the time period is included. Anatomical Region Laterality Modality Other Impressions 09/09/2012 3:37 PM MANAGER [employer] Impression: 1. No evidence of vascular malformation, AVM or AVF. 2. Moderate degree of atherosclerotic disease in L common carotid artery bifurcation which is not hemodynamically significant 3. recommend repeat angiogram after hematoma resolution Narrative 09/09/2012 3:37 PM MANAGER [employer] DIAGNOSTIC CEREBRAL ANGIOGRAM REPORT Procedure: Cerebral angiogram Comparison Study: None Indication: The patient is a 62 y/o woman who presented with slurred speech and r sided weakness and was found to have a L frontal ICH Operators: Bruce Carlisle Sonal Mehta Vessels: L Subclavian artery L Common Carotid Artery L Internal Carotid Artery L External Carotid Artery R Common Carotid Artery R Femoral Artery 6 F Angioseal closure device deployment Anesthesia: Local and IV Sedation Procedural Detail: The risks, benefits, and alternatives to the procedure were discussed in detail with the patient and her . They indicated understanding and wished to proceed. The patient was brought to the biplane angiography suite where the patient underwent routine prep and drape procedures. A 5F sheath was placed in the right femoral artery and a 5 F TA catheter was navigated into the aortic arch. It was used to select the brachiocephalic artery followed by the right carotid artery and cervical and cerebral angiograms were obtained.The catheter was returned to the arch and used to select the left carotid artery and cervical and cerebral angiograms were obtained. The catheter was advanced to the L ECA over the wire and cerebral angiogram was obtained. The catheter was then returned to the L Common Carotid Artery and a new road map was obtained. The catheter was then advanced to the LICA over the wire and a cerebral angiogram was obtained. The TA catheter was then removed from the sheath and a 5F Edwards 2 catheter was used to select the L subclavian artery. with the cuff inflated over the left arm and angiogram injection was carried out, of the cervical and cerebral part of vertebral artery. The catheter was returned to the arch and used to select the left subclavian artery followed by the left vertebral artery and cervical and cerebral angiograms were obtained. A femoral artery angiogram was obtained through the sheath. All catheters and sheaths were removed from the femoral artery. Hemostasis was achieved using a 6 F closure device. Hemostasis was immediate at the end of the closure procedure. The right dorsalis pedis pulse was palpable at the end of the closure procedure. The patient tolerated the procedure without immediate complications. The patient was returned to the recovery area in a hemodynamically stable condition and neurologically unchanged. Estimated blood loss: negligible Fluoroscopic Time: 16.3min Contrast Utilized: 105 ml An attending endovascular neurosurgeon, Guilherme Lazo, was present throughout the procedure and for the interpretation of the images. Findings: There was good arterial, capillary, and venous opacification on all angiographic runs. The left subclavian artery injection filled the left vertebral artery, it reveals normal V1, V2, V3, and V4 segments. The vertebrobasilar junction, basilar artery, and major vessels to the cerebellum are normal in course and caliber as are the posterior cerebral arteries. The right common carotid artery angiogram reveals a carotid bifurcation that is free of hemodynamically significant atherosclerotic disease or fibromuscular dysplasia. The right internal carotid artery angiogram reveals a petrous, cavernous, and supraclinoid internal carotid artery that is normal in course and caliber as is the carotid terminus. The major dural sinuses and deep cerebral veins are normal in course and caliber. The left common carotid artery angiogram reveals a carotid bifurcation that has a moderate degree of atherosclerotic disease. The left internal carotid artery angiogram reveals a petrous, cavernous, and supraclinoid internal carotid artery that is normal in course and caliber as is the carotid terminus. The major dural sinuses and deep cerebral veins are normal in course and caliber. The femoral artery angiogram shows a puncture site above the femoral bifurcation Procedure Note Guilherme Lazo MD - 01/30/2018 DIAGNOSTIC CEREBRAL ANGIOGRAM REPORT Procedure: Cerebral angiogram Comparison Study: None Indication: The patient is a 62 y/o woman who presented with slurredspeech and r sided weakness and was found to have a L frontal ICH Operators: Bruce Carlisle Sonal Mehta Vessels: L Subclavian artery L Common Carotid Artery L Internal Carotid Artery L External Carotid Artery R Common Carotid Artery R Femoral Artery 6 F Angioseal closure device deployment Anesthesia: Local and IV Sedation Procedural Detail: The risks, benefits, and alternatives to the procedurewere discussed in detail with the patient and her . They indicatedunderstanding and wished to proceed. The patient was brought to theplane angiography suite where the patient underwent routine prep and drape procedures. A 5F sheath wasplaced in the right femoral artery and a 5 F TA catheter was navigatedinto the aortic arch. It was used to select the brachiocephalic arteryfollowed by the right carotid artery and cervical and cerebral angiograms were obtained.The catheter was returnedto the arch and used to select the left carotid artery and cervical andcerebral angiograms were obtained. The catheter was advanced to the L ECAover the wire and cerebral angiogram was obtained. The catheter was then returned to the L CommonCarotid Artery and a new road map was obtained. The catheter was thenadvanced to the LICA over the wire and a cerebral angiogram was obtained.The TA catheter was then removed from the sheath and a 5F Edwards 2 catheter was used to select the L subclavianartery. with the cuff inflated over the left arm and angiogram injectionwas carried out, of the cervical and cerebral part of vertebral artery.The catheter was returned to the arch and used to select the left subclavian artery followed by the leftvertebral artery and cervical and cerebral angiograms were obtained. Afemoral artery angiogram was obtained through the sheath. All catheters and sheaths were removed from the femoral artery. Hemostasiswas achieved using a 6 F closure device. Hemostasis was immediate at theend of the closure procedure. The right dorsalis pedis pulse was palpableat the end of the closure procedure. The patient tolerated the procedure without immediate complications. Thepatient was returned to the recovery area in a hemodynamically stablecondition and neurologically unchanged. Estimated blood loss: negligible Fluoroscopic Time: 16.3min Contrast Utilized: 105 ml An attending endovascular neurosurgeon, Guilherme Lazo, was presentthroughout the procedure and for the interpretation of the images. Findings: There was good arterial, capillary, and venous opacification on allangiographic runs. The left subclavian artery injection filled the left vertebral artery, itreveals normal V1, V2, V3, and V4 segments. The vertebrobasilar junction,basilar artery, and major vessels to the cerebellum are normal in courseand caliber as are the posterior cerebral arteries. The right common carotid artery angiogram reveals a carotid bifurcationthat is free of hemodynamically significant atherosclerotic disease orfibromuscular dysplasia. The right internal carotid artery angiogram reveals a petrous, cavernous,and supraclinoid internal carotid artery that is normal in course andcaliber as is the carotid terminus. The major dural sinuses and deepcerebral veins are normal in course and caliber. The left common carotid artery angiogram reveals a carotid bifurcationthat has a moderate degree of atherosclerotic disease. The left internal carotid artery angiogram reveals a petrous, cavernous,and supraclinoid internal carotid artery that is normal in course andcaliber as is the carotid terminus. The major dural sinuses and deepcerebral veins are normal in course and caliber. The femoral artery angiogram shows a puncture site above the femoralbifurcation IMPRESSION Impression: 1. No evidence of vascular malformation, AVM or AVF. 2. Moderate degree of atherosclerotic disease in L common carotid arterybifurcation which is not hemodynamically significant 3. recommend repeat angiogram after hematoma resolution Zayra Webster MD IR ORDERABLES * IR ANGIO VERTEBRAL CERVICAL INTRACRANIAL (09/08/2012 2:53 PM MANAGER [employer]) Anatomical Region Laterality Modality Head Other Impressions 09/09/2012 3:37 PM MANAGER [employer] Impression: 1. No evidence of vascular malformation, AVM or AVF. 2. Moderate degree of atherosclerotic disease in L common carotid artery bifurcation which is not hemodynamically significant 3. 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 They indicated understanding and wished to proceed. The patient was brought to the biplane angiography suite where the patient underwent routine prep and drape procedures. A 5F sheath was placed in the right femoral artery and a 5 F TA catheter was navigated into the aortic arch. It was used to select the brachiocephalic artery followed by the right carotid artery and cervical and cerebral angiograms were obtained.The catheter was returned to the arch and used to select the left carotid artery and cervical and cerebral angiograms were obtained. The catheter was advanced to the L ECA over the wire and cerebral angiogram was obtained. The catheter was then returned to the L Common Carotid Artery and a new road map was obtained. The catheter was then advanced to the LICA over the wire and a cerebral angiogram was obtained. The TA catheter was then removed from the sheath and a 5F Edwards 2 catheter was used to select the L subclavian artery. with the cuff inflated over the left arm and angiogram injection was carried out, of the cervical and cerebral part of vertebral artery. The catheter was returned to the arch and used to select the left subclavian artery followed by the left vertebral artery and cervical and cerebral angiograms were obtained. A femoral artery angiogram was obtained through the sheath. All catheters and sheaths were removed from the femoral artery. Hemostasis was achieved using a 6 F closure device. Hemostasis was immediate at the end of the closure procedure. The right dorsalis pedis pulse was palpable at the end of the closure procedure. The patient tolerated the procedure without immediate complications. The patient was returned to the recovery area in a hemodynamically stable condition and neurologically unchanged. Estimated blood loss: negligible Fluoroscopic Time: 16.3min Contrast Utilized: 105 ml An attending endovascular neurosurgeon, Guilherme Lazo, was present throughout the procedure and for the interpretation of the images. Findings: There was good arterial, capillary, and venous opacification on all angiographic runs. The left subclavian artery injection filled the left vertebral artery, it reveals normal V1, V2, V3, and V4 segments. The vertebrobasilar junction, basilar artery, and major vessels to the cerebellum are normal in course and caliber as are the posterior cerebral arteries. The right common carotid artery angiogram reveals a carotid bifurcation that is free of hemodynamically significant atherosclerotic disease or fibromuscular dysplasia. The right internal carotid artery angiogram reveals a petrous, cavernous, and supraclinoid internal carotid artery that is normal in course and caliber as is the carotid terminus. The major dural sinuses and deep cerebral veins are normal in course and caliber. The left common carotid artery angiogram reveals a carotid bifurcation that has a moderate degree of atherosclerotic disease. The left internal carotid artery angiogram reveals a petrous, cavernous, and supraclinoid internal carotid artery that is normal in course and caliber as is the carotid terminus. The major dural sinuses and deep cerebral veins are normal in course and caliber. The femoral artery angiogram shows a puncture site above the femoral bifurcation Procedure Note Guilherme Lazo MD - 01/30/2018 DIAGNOSTIC CEREBRAL ANGIOGRAM REPORT Procedure: Cerebral angiogram Comparison Study: None Indication: The patient is a 62 y/o woman who presented with slurredspeech and r sided weakness and was found to have a L frontal ICH Operators: Bruce Carlisle Sonal Mehta Vessels: L Subclavian artery L Common Carotid Artery L Internal Carotid Artery L External Carotid Artery R Common Carotid Artery R Femoral Artery 6 F Angioseal closure device deployment Anesthesia: Local and IV Sedation Procedural Detail: The risks, benefits, and alternatives to the procedurewere discussed in detail with the patient and her . They indicatedunderstanding and wished to proceed. [facility] the patient underwent routine prep and drape procedures. A 5F sheath wasplaced in the right femoral artery and a 5 F TA catheter was navigatedinto the aortic arch. It was used to select the brachiocephalic arteryfollowed by the right carotid artery and cervical and cerebral angiograms were obtained.The catheter was returnedto the arch and used to select the left carotid artery and cervical andcerebral angiograms were obtained. The catheter was advanced to the L ECAover the wire and cerebral angiogram was obtained. The catheter was then returned to the L CommonCarotid Artery and a new road map was obtained. The catheter was thenadvanced to the LICA over the wire and a cerebral angiogram was obtained.The TA catheter was then removed from the sheath and a 5F Edwards 2 catheter was used to select the L subclavianartery. with the cuff inflated over the left arm and angiogram injectionwas carried out, of the cervical and cerebral part of vertebral artery.The catheter was returned to the arch and used to select the left subclavian artery followed by the leftvertebral artery and cervical and cerebral angiograms were obtained. Afemoral artery angiogram was obtained through the sheath. All catheters and sheaths were removed from the femoral artery. Hemostasiswas achieved using a 6 F closure device. Hemostasis was immediate at theend of the closure procedure. The right dorsalis pedis pulse was palpableat the end of the closure procedure. The patient tolerated the procedure without immediate complications. Thepatient was returned to the recovery area in a hemodynamically stablecondition and neurologically unchanged. Estimated blood loss: negligible Fluoroscopic Time: 16.3min Contrast Utilized: 105 ml An attending endovascular neurosurgeon, Guilherme Lazo, was presentthroughout the procedure and for the interpretation of the images. Findings: There was good arterial, capillary, and venous opacification on allangiographic runs. The left subclavian artery injection filled the left vertebral artery, itreveals normal V1, V2, V3, and V4 segments. The vertebrobasilar junction,basilar artery, and major vessels to the cerebellum are normal in courseand caliber as are the posterior cerebral arteries. The right common carotid artery angiogram reveals a carotid bifurcationthat is free of hemodynamically significant atherosclerotic disease orfibromuscular dysplasia. The right internal carotid artery angiogram reveals a petrous, cavernous,and supraclinoid internal carotid artery that is normal in course andcaliber as is the carotid terminus. The major dural sinuses and deepcerebral veins are normal in course and caliber. The left common carotid artery angiogram reveals a carotid bifurcationthat has a moderate degree of atherosclerotic disease. The left internal carotid artery angiogram reveals a petrous, cavernous,and supraclinoid internal carotid artery that is normal in course andcaliber as is the carotid terminus. The major dural sinuses and deepcerebral veins are normal in course and caliber. The femoral artery angiogram shows a puncture site above the femoralbifurcation IMPRESSION Impression: 1. No evidence of vascular malformation, AVM or AVF. 2. Moderate degree of atherosclerotic disease in L common carotid arterybifurcation which is not hemodynamically significant 3. recommend repeat angiogram after hematoma resolution Zayra Webster MD IR ORDERABLES * IR ANGIO CAROTID CERVICAL BILAT [place] (09/08/2012 2:53 PM MANAGER [employer]) Anatomical Region Laterality Modality Head Other Impressions 09/09/2012 3:37 PM MANAGER [employer] Impression: 1. No evidence of vascular malformation, AVM or AVF. 2. Moderate degree of atherosclerotic disease in L common carotid artery bifurcation which is not hemodynamically significant 3. 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 They indicated understanding and wished to proceed. The patient was brought to the biplane angiography suite where the patient underwent routine prep and drape procedures. A 5F sheath was placed in the right femoral artery and a 5 F TA catheter was navigated into the aortic arch. It was used to select the brachiocephalic artery followed by the right carotid artery and cervical and cerebral angiograms were obtained.The catheter was returned to the arch and used to select the left carotid artery and cervical and cerebral angiograms were obtained. The catheter was advanced to the L ECA over the wire and cerebral angiogram was obtained. The catheter was then returned to the L Common Carotid Artery and a new road map was obtained. The catheter was then advanced to the LICA over the wire and a cerebral angiogram was obtained. The TA catheter was then removed from the sheath and a 5F Edwards 2 catheter was used to select the L subclavian artery. with the cuff inflated over the left arm and angiogram injection was carried out, of the cervical and cerebral part of vertebral artery. The catheter was returned to the arch and used to select the left subclavian artery followed by the left vertebral artery and cervical and cerebral angiograms were obtained. A femoral artery angiogram was obtained through the sheath. All catheters and sheaths were removed from the femoral artery. Hemostasis was achieved using a 6 F closure device. Hemostasis was immediate at the end of the closure procedure. The right dorsalis pedis pulse was palpable at the end of the closure procedure. The patient tolerated the procedure without immediate complications. The patient was returned to the recovery area in a hemodynamically stable condition and neurologically unchanged. Estimated blood loss: negligible Fluoroscopic Time: 16.3min Contrast Utilized: 105 ml An attending endovascular neurosurgeon, Guilherme Lazo, was present throughout the procedure and for the interpretation of the images. Findings: There was good arterial, capillary, and venous opacification on all angiographic runs. The left subclavian artery injection filled the left vertebral artery, it reveals normal V1, V2, V3, and V4 segments. The vertebrobasilar junction, basilar artery, and major vessels to the cerebellum are normal in course and caliber as are the posterior cerebral arteries. The right common carotid artery angiogram reveals a carotid bifurcation that is free of hemodynamically significant atherosclerotic disease or fibromuscular dysplasia. The right internal carotid artery angiogram reveals a petrous, cavernous, and supraclinoid internal carotid artery that is normal in course and caliber as is the carotid terminus. The major dural sinuses and deep cerebral veins are normal in course and caliber. The left common carotid artery angiogram reveals a carotid bifurcation that has a moderate degree of atherosclerotic disease. The left internal carotid artery angiogram reveals a petrous, cavernous, and supraclinoid internal carotid artery that is normal in course and caliber as is the carotid terminus. The major dural sinuses and deep cerebral veins are normal in course and caliber. The femoral artery angiogram shows a puncture site above the femoral bifurcation Procedure Note Guilherme Lazo MD - 01/30/2018 DIAGNOSTIC CEREBRAL ANGIOGRAM REPORT Procedure: Cerebral angiogram Comparison Study: None Indication: The patient is a 62 y/o woman who presented with slurredspeech and r sided weakness and was found to have a L frontal ICH Operators: Bruce Carlisle, Tianna Tolbert Vessels: L Subclavian artery L Common Carotid Artery L Internal Carotid Artery L External Carotid Artery R Common Carotid Artery R Femoral Artery 6 F Angioseal closure device deployment Anesthesia: Local and IV Sedation Procedural Detail: The risks, benefits, and alternatives to the procedurewere discussed in detail with the patient and her . They indicatedunderstanding and wished to proceed. The patient was [facility] where the patient underwent routine prep and drape procedures. A 5F sheath wasplaced in the right femoral artery and a 5 F TA catheter was navigatedinto the aortic arch. It was used to select the brachiocephalic arteryfollowed by the right carotid artery and cervical and cerebral angiograms were obtained.The catheter was returnedto the arch and used to select the left carotid artery and cervical andcerebral angiograms were obtained. The catheter was advanced to the L ECAover the wire and cerebral angiogram was obtained. The catheter was then returned to the L CommonCarotid Artery and a new road map was obtained. The catheter was thenadvanced to the LICA over the wire and a cerebral angiogram was obtained.The TA catheter was then removed from the sheath and a 5F Edwards 2 catheter was used to select the L subclavianartery. with the cuff inflated over the left arm and angiogram injectionwas carried out, of the cervical and cerebral part of vertebral artery.The catheter was returned to the arch and used to select the left subclavian artery followed by the leftvertebral artery and cervical and cerebral angiograms were obtained. Afemoral artery angiogram was obtained through the sheath. All catheters and sheaths were removed from the femoral artery. Hemostasiswas achieved using a 6 F closure device. Hemostasis was immediate at theend of the closure procedure. The right dorsalis pedis pulse was palpableat the end of the closure procedure. The patient tolerated the procedure without immediate complications. Thepatient was returned to the recovery area in a hemodynamically stablecondition and neurologically unchanged. Estimated blood loss: negligible Fluoroscopic Time: 16.3min Contrast Utilized: 105 ml An attending endovascular neurosurgeon, Guilherme Lazo, was presentthroughout the procedure and for the interpretation of the images. Findings: There was good arterial, capillary, and venous opacification on allangiographic runs. The left subclavian artery injection filled the left vertebral artery, itreveals normal V1, V2, V3, and V4 segments. The vertebrobasilar junction,basilar artery, and major vessels to the cerebellum are normal in courseand caliber as are the posterior cerebral arteries. The right common carotid artery angiogram reveals a carotid bifurcationthat is free of hemodynamically significant atherosclerotic disease orfibromuscular dysplasia. The right internal carotid artery angiogram reveals a petrous, cavernous,and supraclinoid internal carotid artery that is normal in course andcaliber as is the carotid terminus. The major dural sinuses and deepcerebral veins are normal in course and caliber. The left common carotid artery angiogram reveals a carotid bifurcationthat has a moderate degree of atherosclerotic disease. The left internal carotid artery angiogram reveals a petrous, cavernous,and supraclinoid internal carotid artery that is normal in course andcaliber as is the carotid terminus. The major dural sinuses and deepcerebral veins are normal in course and caliber. The femoral artery angiogram shows a puncture site above the femoralbifurcation IMPRESSION Impression: 1. No evidence of vascular malformation, AVM or AVF. 2. Moderate degree of atherosclerotic disease in L common carotid arterybifurcation which is not hemodynamically significant 3. recommend repeat angiogram after hematoma resolution Zayra Webster MD IR ORDERABLES * IR ANGIO CAROTID CEREBRAL BILAT [place] (09/08/2012 2:53 PM MANAGER [employer]) Anatomical Region Laterality Modality Head Other Impressions 09/09/2012 3:37 PM MANAGER [employer] MARK[employer]ING Impression: 1. No evidence of vascular malformation, AVM or AVF. 2. Moderate degree of atherosclerotic disease in L common carotid artery bifurcation which is not hemodynamically significant 3. recommend repeat angiogram after hematoma resolution Narrative 09/09/2012 3:37 PM MANAGER [employer] MARKETING DIAGNOSTIC CEREBRAL ANGIOGRAM REPORT Procedure: Cerebral angiogram Comparison Study: None Indication: The patient is a 62 y/o woman who presented with slurred speech and r sided weakness and was found to have a L frontal ICH Operators: Guilherme Lazo, Bruce Esteban, Tianna Tolbert Vessels: L Subclavian artery L Common Carotid Artery L Internal Carotid Artery L External Carotid Artery R Common Carotid Artery R Femoral Artery 6 F Angioseal closure device deployment Anesthesia: Local and IV Sedation Procedural Detail: The risks, benefits, and alternatives to the procedure were discussed in detail with the patient and her . They indicated understanding and wished to proceed. The patient was brought to the biplane angiography suite where the patient underwent routine prep and drape procedures. A 5F sheath was placed in the right femoral artery and a 5 F TA catheter was navigated into the aortic arch. It was used to select the brachiocephalic artery followed by the right carotid artery and cervical and cerebral angiograms were obtained.The catheter was returned to the arch and used to select the left carotid artery and cervical and cerebral angiograms were obtained. The catheter was advanced to the L ECA over the wire and cerebral angiogram was obtained. The catheter was then returned to the L Common Carotid Artery and a new road map was obtained. The catheter was then advanced to the LICA over the wire and a cerebral angiogram was obtained. The TA catheter was then removed from the sheath and a 5F Edwards 2 catheter was used to select the L subclavian artery. with the cuff inflated over the left arm and angiogram injection was carried out, of the cervical and cerebral part of vertebral artery. The catheter was returned to the arch and used to select the left subclavian artery followed by the left vertebral artery and cervical and cerebral angiograms were obtained. A femoral artery angiogram was obtained through the sheath. All catheters and sheaths were removed from the femoral artery. Hemostasis was achieved using a 6 F closure device. Hemostasis was immediate at the end of the closure procedure. The right dorsalis pedis pulse was palpable at the end of the closure procedure. The patient tolerated the procedure without immediate complications. The patient was returned to the recovery area in a hemodynamically stable condition and neurologically unchanged. Estimated blood loss: negligible Fluoroscopic Time: 16.3min Contrast Utilized: 105 ml An attending endovascular neurosurgeon, Guilherme Lazo, was present throughout the procedure and for the interpretation of the images. Findings: There was good arterial, capillary, and venous opacification on all angiographic runs. The left subclavian artery injection filled the left vertebral artery, it reveals normal V1, V2, V3, and V4 segments. The vertebrobasilar junction, basilar artery, and major vessels to the cerebellum are normal in course and caliber as are the posterior cerebral arteries. The right common carotid artery angiogram reveals a carotid bifurcation that is free of hemodynamically significant atherosclerotic disease or fibromuscular dysplasia. The right internal carotid artery angiogram reveals a petrous, cavernous, and supraclinoid internal carotid artery that is normal in course and caliber as is the carotid terminus. The major dural sinuses and deep cerebral veins are normal in course and caliber. The left common carotid artery angiogram reveals a carotid bifurcation that has a moderate degree of atherosclerotic disease. The left internal carotid artery angiogram reveals a petrous, cavernous, and supraclinoid internal carotid artery that is normal in course and caliber as is the carotid terminus. The major dural sinuses and deep cerebral veins are normal in course and caliber. The femoral artery angiogram shows a puncture site above the femoral bifurcation Procedure Note Guilherme Lazo MD - 01/30/2018 DIAGNOSTIC CEREBRAL ANGIOGRAM REPORT Procedure: Cerebral angiogram Comparison Study: None Indication: The patient is a 62 y/o woman who presented with slurredspeech and r sided weakness and was found to have a L frontal ICH Operators: Bruce Carlisle Sonal Mehta Vessels: L Subclavian artery L Common Carotid Artery L Internal Carotid Artery L External Carotid Artery R Common Carotid Artery R Femoral Artery 6 F Angioseal closure device deployment Anesthesia: Local and IV Sedation Procedural Detail: The risks, benefits, and alternatives to the procedurewere discussed in detail with the patient and her . They indicatedunderstanding and wished to proceed. The patient was brought to thebiplane angiography suite where the patient underwent routine prep and drape procedures. A 5F sheath wasplaced in the right femoral artery and a 5 F TA catheter was navigatedinto the aortic arch. It was used to select the brachiocephalic arteryfollowed by the right carotid artery and cervical and cerebral angiograms were obtained.The catheter was returnedto the arch and used to select the left carotid artery and cervical andcerebral angiograms were obtained. The catheter was advanced to the L ECAover the wire and cerebral angiogram was obtained. The catheter was then returned to the L CommonCarotid Artery and a new road map was obtained. The catheter was thenadvanced to the LICA over the wire and a cerebral angiogram was obtained.The TA catheter was then removed from the sheath and a 5F Edwards 2 catheter was used to select the L subclavianartery. with the cuff inflated over the left arm and angiogram injectionwas carried out, of the cervical and cerebral part of vertebral artery.The catheter was returned to the arch and used to select the left subclavian artery followed by the leftvertebral artery and cervical and cerebral angiograms were obtained. Afemoral artery angiogram was obtained through the sheath. All catheters and sheaths were removed from the femoral artery. Hemostasiswas achieved using a 6 F closure device. Hemostasis was immediate at theend of the closure procedure. The right dorsalis pedis pulse was palpableat the end of the closure procedure. The patient tolerated the procedure without immediate complications. Thepatient was returned to the recovery area in a hemodynamically stablecondition and neurologically unchanged. Estimated blood loss: negligible Fluoroscopic Time: 16.3min Contrast Utilized: 105 ml An attending endovascular neurosurgeon, Guilherme Lazo, was presentthroughout the procedure and for the interpretation of the images. Findings: There was good arterial, capillary, and venous opacification on allangiographic runs. The left subclavian artery injection filled the left vertebral artery, itreveals normal V1, V2, V3, and V4 segments. The vertebrobasilar junction,basilar artery, and major vessels to the cerebellum are normal in courseand caliber as are the posterior cerebral arteries. The right common carotid artery angiogram reveals a carotid bifurcationthat is free of hemodynamically significant atherosclerotic disease orfibromuscular dysplasia. The right internal carotid artery angiogram reveals a petrous, cavernous,and supraclinoid internal carotid artery that is normal in course andcaliber as is the carotid terminus. The major dural sinuses and deepcerebral veins are normal in course and caliber. The left common carotid artery angiogram reveals a carotid bifurcationthat has a moderate degree of atherosclerotic disease. The left internal carotid artery angiogram reveals a petrous, cavernous,and supraclinoid internal carotid artery that is normal in course andcaliber as is the carotid terminus. The major dural sinuses and deepcerebral veins are normal in course and caliber. The femoral artery angiogram shows a puncture site above the femoralbifurcation IMPRESSION Impression: 1. No evidence of vascular malformation, AVM or AVF. 2. Moderate degree of atherosclerotic disease in L common carotid arterybifurcation which is not hemodynamically significant 3. recommend repeat angiogram after hematoma resolution Zayra Webster MD IR ORDERABLES * IR CAROTID EXTERNAL LEFT (09/08/2012 2:53 PM MANAGER [employer]ETING) Anatomical Region Laterality Modality Head Other Impressions 09/09/2012 3:37 PM MANAGER [employer] MARKETING Impression: 1. No evidence of vascular malformation, AVM or AVF. 2. Moderate degree of atherosclerotic disease in L common carotid artery bifurcation which is not hemodynamically significant 3. recommend repeat angiogram after hematoma resolution Narrative 09/09/2012 3:37 PM MANAGER STRATE[employer]IC MARKETING DIAGNOSTIC CEREBRAL ANGIOGRAM REPORT Procedure: Cerebral angiogram Comparison Study: None Indication: The patient is a 62 y/o woman who presented with slurred speech and r sided weakness and was found to have a L frontal ICH Operators: Bruce Carlisle Sonal Mehta Vessels: L Subclavian artery L Common Carotid Artery L Internal Carotid Artery L External Carotid Artery R Common Carotid Artery R Femoral Artery 6 F Angioseal closure device deployment Anesthesia: Local and IV Sedation Procedural Detail: The risks, benefits, and alternatives to the procedure were discussed in detail with the patient and her . They indicated understanding and wished to proceed. The patient was brought to the biplane angiography suite where the patient underwent routine prep and drape procedures. A 5F sheath was placed in the right femoral artery and a 5 F TA catheter was navigated into the aortic arch. It was used to select the brachiocephalic artery followed by the right carotid artery and cervical and cerebral angiograms were obtained.The catheter was returned to the arch and used to select the left carotid artery and cervical and cerebral angiograms were obtained. The catheter was advanced to the L ECA over the wire and cerebral angiogram was obtained. The catheter was then returned to the L Common Carotid Artery and a new road map was obtained. The catheter was then advanced to the LICA over the wire and a cerebral angiogram was obtained. The TA catheter was then removed from the sheath and a 5F Edwards 2 catheter was used to select the L subclavian artery. with the cuff inflated over the left arm and angiogram injection was carried out, of the cervical and cerebral part of vertebral artery. The catheter was returned to the arch and used to select the left subclavian artery followed by the left vertebral artery and cervical and cerebral angiograms were obtained. A femoral artery angiogram was obtained through the sheath. All catheters and sheaths were removed from the femoral artery. Hemostasis was achieved using a 6 F closure device. Hemostasis was immediate at the end of the closure procedure. The right dorsalis pedis pulse was palpable at the end of the closure procedure. The patient tolerated the procedure without immediate complications. The patient was returned to the recovery area in a hemodynamically stable condition and neurologically unchanged. Estimated blood loss: negligible Fluoroscopic Time: 16.3min Contrast Utilized: 105 ml An attending endovascular neurosurgeon, Guilherme Lazo, was present throughout the procedure and for the interpretation of the images. Findings: There was good arterial, capillary, and venous opacification on all angiographic runs. The left subclavian artery injection filled the left vertebral artery, it reveals normal V1, V2, V3, and V4 segments. The vertebrobasilar junction, basilar artery, and major vessels to the cerebellum are normal in course and caliber as are the posterior cerebral arteries. The right common carotid artery angiogram reveals a carotid bifurcation that is free of hemodynamically significant atherosclerotic disease or fibromuscular dysplasia. The right internal carotid artery angiogram reveals a petrous, cavernous, and supraclinoid internal carotid artery that is normal in course and caliber as is the carotid terminus. The major dural sinuses and deep cerebral veins are normal in course and caliber. The left common carotid artery angiogram reveals a carotid bifurcation that has a moderate degree of atherosclerotic disease. The left internal carotid artery angiogram reveals a petrous, cavernous, and supraclinoid internal carotid artery that is normal in course and caliber as is the carotid terminus. The major dural sinuses and deep cerebral veins are normal in course and caliber. The femoral artery angiogram shows a puncture site above the femoral bifurcation Procedure Note Guilherme Lzao MD - 01/30/2018 DIAGNOSTIC CEREBRAL ANGIOGRAM REPORT Procedure: Cerebral angiogram Comparison Study: None Indication: The patient is a 62 y/o woman who presented with slurredspeech and r sided weakness and was found to have a L frontal ICH Operators: Guilherme Lazo, Bruce Esteban, Tianna Tolbert Vessels: L Subclavian artery L Common Carotid Artery L Internal Carotid Artery L External Carotid Artery R Common Carotid Artery R Femoral Artery 6 F Angioseal closure device deployment Anesthesia: Local and IV Sedation Procedural Detail: The risks, benefits, and alternatives to the procedurewere discussed in detail with the patient and her . They indicatedunderstanding and wished to proceed. The patient was brought to thebiplane angiography suite where the patient underwent routine prep and drape procedures. A 5F sheath wasplaced in the right femoral artery and a 5 F TA catheter was navigatedinto the aortic arch. It was used to select the brachiocephalic arteryfollowed by the right carotid artery and cervical and cerebral angiograms were obtained.The catheter was returnedto the arch and used to select the left carotid artery and cervical andcerebral angiograms were obtained. The catheter was advanced to the L ECAover the wire and cerebral angiogram was obtained. The catheter was then returned to the L CommonCarotid Artery and a new road map was obtained. The catheter was thenadvanced to the LICA over the wire and a cerebral angiogram was obtained.The TA catheter was then removed from the sheath and a 5F Edwards 2 catheter was used to select the L subclavianartery. with the cuff inflated over the left arm and angiogram injectionwas carried out, of the cervical and cerebral part of vertebral artery.The catheter was returned to the arch and used to select the left subclavian artery followed by the leftvertebral artery and cervical and cerebral angiograms were obtained. Afemoral artery angiogram was obtained through the sheath. All catheters and sheaths were removed from the femoral artery. Hemostasiswas achieved using a 6 F closure device. Hemostasis was immediate at theend of the closure procedure. The right dorsalis pedis pulse was palpableat the end of the closure procedure. The patient tolerated the procedure without immediate complications. Thepatient was returned to the recovery area in a hemodynamically stablecondition and neurologically unchanged. Estimated blood loss: negligible Fluoroscopic Time: 16.3min Contrast Utilized: 105 ml An attending endovascular neurosurgeon, Guilherme Lazo, was presentthroughout the procedure and for the interpretation of the images. Findings: There was good arterial, capillary, and venous opacification on allangiographic runs. The left subclavian artery injection filled the left vertebral artery, itreveals normal V1, V2, V3, and V4 segments. The vertebrobasilar junction,basilar artery, and major vessels to the cerebellum are normal in courseand caliber as are the posterior cerebral arteries. The right common carotid artery angiogram reveals a carotid bifurcationthat is free of hemodynamically significant atherosclerotic disease orfibromuscular dysplasia. The right internal carotid artery angiogram reveals a petrous, cavernous,and supraclinoid internal carotid artery that is normal in course andcaliber as is the carotid terminus. The major dural sinuses and deepcerebral veins are normal in course and caliber. The left common carotid artery angiogram reveals a carotid bifurcationthat has a moderate degree of atherosclerotic disease. The left internal carotid artery angiogram reveals a petrous, cavernous,and supraclinoid internal carotid artery that is normal in course andcaliber as is the carotid terminus. The major dural sinuses and deepcerebral veins are normal in course and caliber. The femoral artery angiogram shows a puncture site above the femoralbifurcation IMPRESSION Impression: 1. No evidence of vascular malformation, AVM or AVF. 2. Moderate degree of atherosclerotic disease in L common carotid arterybifurcation which is not hemodynamically significant 3. recommend repeat angiogram after hematoma resolution Zayra Webster MD IR ORDERABLES * CT HEAD WO CONTRAST (09/08/2012 10:18 AM MANAGER [employer]) Anatomical Region Laterality Modality Head Other Impressions 09/08/2012 3:13 PM MANAGER [employer]ING IMPRESSION: 1. Left frontal intra-parenchymal hemorrhage, minimally increased in size This report was approved by Abdoul Cummings on 09/08/2012 3:00 PM . I, Dr. SMITH CARDONA M.D. have personally reviewed and interpreted this examination/study. This report was electronically signed by SMITH CARDONA M.D. on 09/08/2012 3:13 PM . Narrative 09/08/2012 3:13 PM MANAGER [employer] MARKETING EXAMINATION: Computed tomography (CT) of the head without contrast HISTORY: worsening mental status TECHNIQUE: CT of the head was performed without contrast according to standard protocol. FINDINGS: Comparison is made to the prior exam from [place], [place] from 09/06/2012. The left frontal intraparenchymal hemorrhage with surrounding a region of vasogenic edema is minimally increased in size, now measuring 2.4 x 2.7 (previously measuring 2.1 x 2.5 cm). Minimal mass effect on the right lateral ventricle is noted. Otherwise the ventricles are of normal size, shape, and morphology. The basal cisterns are patent. No mass effect or midline shift is seen. The lou-white matter differentiation is normal. 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 The visualized portions of the orbits, paranasal sinuses, and mastoids appear normal. No acute fracture is identified. Procedure Note Abdoul Cummings MD - 01/30/2018 EXAMINATION: Computed tomography (CT) of the head without contrast HISTORY: worsening mental status TECHNIQUE: CT of the head was performed without contrast according tostandard protocol. FINDINGS: Comparison is made to the prior exam from [place], [place] from 09/06/2012. The left frontal intraparenchymal hemorrhage with surrounding a region ofvasogenic edema is minimally increased in size, now measuring 2.4 x 2.7(previously measuring 2.1 x 2.5 cm). Minimal mass effect on the rightlateral ventricle is noted. Otherwise the ventricles are of normal size, shape, and morphology. The basalcisterns are patent. No mass effect or midline shift is seen. Thegray-white matter differentiation is normal. There are old lacunarinfarcts and calcifications within the bilateral basal ganglia. The visualized portions of the orbits, paranasal sinuses,and mastoids appear normal. No acute fracture is identified. IMPRESSION IMPRESSION: 1. Left frontal intra-parenchymal hemorrhage, minimally increased insize This report was approved by Abdoul Cummings on 09/08/2012 3:00 PM . I, Dr. SMITH CARDONA M.D. have personally reviewed and interpreted thisexamination/study. This report was electronically signed by SMITH CARDONA M.D. on09/08/2012 3:13 PM . Zayra Webster MD CT ORDERABLES * TROPONIN I (09/07/2012 11:00 AM MANAGER [employer]ING) Only the most recent of2 resultswithin the time period is included. Troponin I < 0.010 <0.032 ng/mL [facility] Comment: NOTE Any condition resulting in myocardial cell damage can potentially increase cardiac troponin-I levels. Published studies have documented that these conditions include, but are not limited to, angina, unstable angina, congestive heart failure, myocarditis, cardiac surgery, or invasive testing and non-cardiac related causes such as pulmonary embolism, renal failure, and sepsis. 6-8 hours are required for cardiac troponin I to increase after onset of chest pain. Troponin values generally remain elevated for 5-10 days. 09/07/2012 11:0 0 AM MANAGER [employer] MARKETING 09/07/2012 11:15 AM MANAGER STR[employer]IC MARKETING Zayra Webster MD LAB - CHEMISTRY JAZMIN FLORES Performing Organization Address [facility] Co de Phone Number [address] [phone] * HEMOGLOBIN A1C (09/07/2012 11:00 AM MANAGER STR[employer] MARKETING) Hemoglobin A1c 5.7 4.4 - 6.3 % [facility] Estimated Average Glucose 117 mg/dL [facility] Blood specimen (specimen) 09/07/2012 11:00 AM MANAGER [employer] MARKETING 09/07/2012 11:15 AM MANAGER STR[employer]IC MARKETING Zayra Webster MD LAB - CHEMISTRY JAZMIN FLORES Performing Organization Address [facility] Co de Phone Number [address] [phone] * (ABNORMAL) COMPREHENSIVE METABOLIC PANEL (09/07/2012 11:00 AM MANAGER STR[employer]IC MARKETING) BUN 17 7 - 26 mg/dL [facility] Creatinine 0.8 0.6 - 1.2 mg/dL [facility] eGFR by MDRD > 60 ML/MIN [facility] Comment: Chronic kidney disease: <60 ml/min Kidney failure: <15 ml/min Based on BSA of 1.73m2. Sodium 146(H) 136 - 145 mmol/L [facility] Potassium 3.7 3.5 - 4.5 mmol/L [facility] Chloride 108(H) 98 - 107 mmol/L [facility] CO2 23 22 - 29 mmol/L [facility] Glucose 115 70 - 115 mg/dL [facility] Calcium 9.6 8.4 - 10.2 mg/dL [facility] Protein Total 6.7 6.0 - 8.3 g/dL [facility] Albumin 3.9 3.4 - 5.0 g/dL [facility] Bilirubin Total 0.5 0.2 - 1.2 mg/dL [facility] Alkaline Phosphatase 45 40 - 150 Units/L [facility] ALT 18 0 - 55 Units/L [facility] AST 21 5 - 34 Units/L [facility] Anion Gap 19(H) 8 - 18 [facility] BUN/Creatinine Ratio 21 7 - 23 [facility] Osmolality Calculation 289 270 - 300 mOsm/kg [facility] Albumin/Globulin Ratio 1.4 1.1 - 2.3 [facility] Serum 09/07/2012 11:0 0 AM MANAGER [employer] MARKETING 09/07/2012 11:15 AM MANAGER STR[employer] MARKETING Zayra Webster MD LAB - CHEMISTRY JAZMIN FLORES [facility] Organization Address City/State/ZIP Co de Phone Number [facility] [address] [phone] * CK + CKMB PANEL (09/07/2012 11:00 AM MANAGER STRATE[employer]IC MARKETING) Only the most recent of2 resultswithin the time period is included. Pathologist [facility] CK Total 100 30 - 200 Units/L [facility] CK-MB 2.1 0.0 - 6.6 ng/mL [facility] Comment: CKMB Reference Range 6.6 ng/mL or greater = Positive For indeterminate results, additional specimen(s) for CKMB, drawn at least one hour apart, may aid diagnosis. Positive CKMB results should be clinically interpreted in combination with total CK serum level. In patients without cardiac muscle damage, CKMB (ng/mL) is generally <2.5% of total CK enzyme activity (Units/L). Virtually all patients with acute myocardial infarction have CKMB values 6.6 ng/mL or greater for samples drawn at least 8-12 hours after the onset of chest pain. CKMB values generally remain elevated for 2-3 days. 09/07/2012 11:0 0 AM MANAGER [employer] MARKETING 09/07/2012 11:15 AM MANAGER STR[employer]IC MARKETING Zayra Webster MD [facility] Organization Address City/State/ZIP Co de Phone Number [address] [phone] * (ABNORMAL) LIPID PROFILE (09/07/2012 11:00 AM MANAGER STRATE[employer]IC MARKETING) Cholesterol Total 194 <200 mg/dL [facility] HDL 64 > OR = 40 mg/dL [facility] Comment: ATP III classification of HDL cholesterol: <40 mg/dL Low; considered a major risk factor >60 mg/dL High; considered a negative risk factor Triglycerides 56 <150 mg/dL [facility] Comment: ATP III classification of Triglycerides: < 150 mg/dL Normal triglycerides 150-199 mg/dL Borderline-high triglycerides 200-400 mg/dL High triglycerides > 500 mg/dL Very high triglycerides LDL Calculated 119(H) 0 - 100 mg/dL [facility] Comment: ATP III classification of LDL cholesterol: <100 mg/dL Optimal 100-129 Near optimal/above optimal 130-159 Borderline high 160-189 High >190 Very high Venous blood specimen (specimen) 09/07/2012 11:00 AM MANAGER [employer]IC MARKETING 09/07/2012 11:15 AM MANAGER STR[employer]IC MARKETING Zayra Webster MD LAB - CHEMISTRY JAZMIN FLORES [facility] [address] [place] [address] * DRUG ABUSE PANEL 10-20+ETHANOL URINE NO CONFIRM (09/07/2012 12:15 AM MANAGER STRATE[employer]IC MARKETING) Amphetamines NEGATIVE NEGATIVE [facility] Comment:Positive Cutoff: >=1 000 ng/mL Barbiturate NEGATIVE NEGATIVE [facility] Comment:Positive Cutoff: >=2 00 ng/mL Benzodiazepine Screen Urine NEGATIVE NEGATIVE [facility] Comment:Positive Cutoff: >=2 00 ng/mL Opiates NEGATIVE NEGATIVE [facility] Comment:Positive Cutoff: >=3 00 ng/mL Cocaine Metabolite Urine NEGATIVE NEGATIVE [facility] Comment:Positive Cutoff: >=3 00 ng/mL Phencyclidine Screen Urine NEGATIVE NEGATIVE [facility] Comment:Positive Cutoff: >=2 5 ng/mL Cannabinoids Screen Urine NEGATIVE NEGATIVE [facility] Comment:Positive Cutoff: >=5 0 ng/mL Methadone NEGATIVE NEGATIVE [facility] Comment:Positive Cutoff: >=3 00 ng/mL Note [facility] Comment: Positive results should be confirmed by another generally accepted non-immunological method such as gas chromatography or mass spectrometry. Toxicology testing by the [facility] is an aid to medical diagnosis and treatment of patients. No documented chain of custody was maintained. Results are intended to be used for clinical purposes only. Note [facility] Comment: The UTOX Panel does not screen for Propoxyphene, Meprobamate, Carisoprodol, Trazodone, ildb-[id number] medications and/or volatiles (Acetone, Isopropanol, Methanol, Ethylene Glycol). Ethanol, Salicylate, Acetaminophen, Tricyclic Antidepressants and several therapeutic drugs may be individually assayed in a serum specimen. Urine specimen (specimen) URINE SPECIMEN OBTAINED BY CLEAN CATCH PROCEDURE / Unknown 09/07/2012 12:15 AM MANAGER STR[employer]IC MARKETING 09/07/2012 12:52 AM MANAGER STR[employer] MARKETING Zayra Webster MD LAB - URINE CHEMISTR Y ORDERABLES [address] [phone] * (ABNORMAL) URINALYSIS REFLEX TO MICROSCOPIC NO CULTURE (09/07/2012 12:15 AM MANAGER [employer] MARKETING) Only the most recent of2 resultswithin the time period is included. Color UA YELLOW STRW,YELLOW [facility] Clarity UA CLOUDY(A) CLEAR [facility] Specific [place] Urine 1.010 1.001 - 1.030 [facility] pH UA 8.0 5.0 - 8.0 [facility] Protein UA NEGATIVE <20 mg/dL [facility] Glucose UA NEGATIVE NEGATIVE mg/dL [facility] [facility] Ketones NEGATIVE NEGATIVE mg/dL [facility] Bilirubin UA NEGATIVE NEGATIVE mg/dL [facility] Blood UA MODERATE(A) NEGATIVE [facility] Nitrite UA NEGATIVE NEGATIVE [facility] Leukocyte Esterase MODERATE(A) NEGATIVE [facility] Urobilinogen UA < 2.0 <2.0 mg/dL [facility] UA Micro Reflex YES [facility] Urine specimen (specimen) URINE SPECIMEN OBTAINED BY CLEAN CATCH PROCEDURE / Unknown 09/07/2012 12:15 AM MANAGER STRATEGIC MARKETING 09/07/2012 12:52 AM MANAGER STRATEGIC MARKETING Zayra Webster MD LAB - URINALYSIS ORD ERABLES Performing Organization Address [facility]/ZIP Co de Phone Number [address] [phone] * TSH (09/07/2012 12:15 AM MANAGER STRATEGIC MARKETING) TSH 4.685 0.350 - 4.940 uIU/mL [facility] Venous blood specimen (specimen) 09/07/2012 12:15 AM MANAGER STRATEGIC MARKETING 09/07/2012 12:47 AM MANAGER STRATEGIC MARKETING Zayra Webster MD LAB - CHEMISTRY ORDE SANDRA Performing Organization Address City/[facility]/ZIP Co de Phone Number [address] [phone] * MRI BRAIN WWO CONTRAST (09/06/2012 5:20 PM MANAGER STRATEGIC MARKETING) Anatomical Region Laterality Modality Head Other Impressions 09/07/2012 1:03 PM MANAGER STRATEGIC MARKETING IMPRESSION: 1. 3.0 x 2.3 cm acute hemorrhage within the left frontal lobe without enhancement to suggest underlying mass. 2. Essentially normal brain MRA. This report was approved by Nathan Pollack on 09/07/2012 10:03 AM . I, Dr. NOEL SMITH M.D. have personally reviewed and interpreted this examination/study. This report was electronically signed by NOEL SMITH M.D. on 09/07/2012 1:03 PM . Narrative 09/07/2012 1:03 PM MANAGER STRATEGIC MARKETING EXAMINATION: 1. Magnetic resonance imaging (MRI) of the brain without and with contrast 2. Magnetic resonance angiography (MRA) of the head and neck without and with contrast HISTORY: 62-year-old female with intraparenchymal hemorrhage. TECHNIQUE: MRI of the brain was performed prior to and following the uneventful administration of MultiHance 15 mL intravenous gadolinium contrast according to standard protocol. MRA of the aphinj-kv-Kbdlnu was performed using a kuaz-mk-zlmpnx technique without contrast. FINDINGS: Comparison is made to prior CT brain 09/06/2012 Brain: There is a 3.0 x 2.3 cm focus of increased T2 signal which is isointense on T1 and has a thin rim of susceptibility artifact on GRE sequence within the left centrum semiovale. This likely represents a focus of acute hemorrhage within the left frontal lobe with minimal surrounding edema. There is no enhancement to suggest an underlying mass. There is no significant mass effect or midline shift. No evidence of acute cerebral infarction is seen. Ventricles are of normal size, shape, and morphology. There is periventricular T2 hyperintensity likely representing chronic microvascular ischemic disease. There are several lacunar infarcts within the left caudate head, right putamen and anterior limb of the right internal capsule. No enhancing lesions are identified. The corpus callosum and sella appear normal. The posterior fossa, brainstem, and craniocervical junction appear normal. The visualized portions of the orbits, mastoids and paranasal sinuses appear normal. Normal flow voids are demonstrated in the carotid arteries and basilar artery. The calvarium and visualized cervical spine appear normal. Angiographic findings: There is no hemodynamically significant stenosis involving the cervical vertebral or carotid arteries. The distal internal carotid arteries as well as the anterior and middle cerebral arteries appear normal. The distal vertebral arteries, the basilar artery, and the posterior cerebral arteries appear normal. The right vertebral artery is dominant. No aneurysms or intracranial stenoses are identified. Procedure Note Noel Smith MD - 01/30/2018 EXAMINATION: 1. Magnetic resonance imaging (MRI) of the brain without and withcontrast 2. Magnetic resonance angiography (MRA) of the head and neck without andwith contrast HISTORY: 62-year-old female with intraparenchymal hemorrhage. TECHNIQUE: MRI of the brain was performed prior to and following theuneventful administration of MultiHance 15 mL intravenous gadoliniumcontrast according to standard protocol. MRA of the cnhzqv-rr-Faksrt wasperformed using a czwy-mo-butsvs technique without contrast. FINDINGS: Comparison is made to prior CT brain 09/06/2012 Brain: There is a 3.0 x 2.3 cm focus of increased T2 signal which is isointenseon T1 and has a thin rim of susceptibility artifact on GRE sequence withinthe left centrum semiovale. This likely represents a focus of acutehemorrhage within the left frontal lobe with minimal surrounding edema. There is no enhancement to suggest anunderlying mass. There is no significant mass effect or midline shift. Noevidence of acute cerebral infarction is seen. Ventricles are of normalsize, shape, and morphology. There is periventricular T2 hyperintensity likely representing chronicmicrovascular ischemic disease. There are several lacunar infarcts withinthe left caudate head, right putamen and anterior limb of the rightinternal capsule. No enhancing lesions are identified. The corpus callosum and sella appear normal. The posteriorfossa, brainstem, and craniocervical junction appear normal. The visualized portions of the orbits, mastoids and paranasal sinusesappear normal. Normal flow voids are demonstrated in the carotid arteriesand basilar artery. The calvarium and visualized cervical spine appearnormal. Angiographic findings: There is no hemodynamically significant stenosis involving the cervicalvertebral or carotid arteries. The distal internal carotid arteries as well as the anterior and middlecerebral arteries appear normal. The distal vertebral arteries, thebasilar artery, and the posterior cerebral arteries appear normal. Theright vertebral artery is dominant. No aneurysms or intracranial stenoses are identified. IMPRESSION IMPRESSION: 1. 3.0 x 2.3 cm acute hemorrhage within the left frontal lobe withoutenhancement to suggest underlying mass. 2. Essentially normal brain MRA. This report was approved by Nathan Pollack on 09/07/2012 10:03 AM. I, Dr. NOEL SMITH M.D. have personally reviewed and interpreted thisexamination/study. This report was electronically signed by NOEL SMITH M.D. on 09/07/20121:03 PM . Zayra Webster MD MR ORDERABLES Care Teams Sanipractic Physician Relationship Specialty Start Date End Date Jax Cruz MD [address] [place] [address] PCP - General 12/15/19
--- OUTSIDE RECORDS SUMMARY | 2025-01-08 16:20 | XMS_ITS | Encounter Summary ---
Author Organization [facility] Address [address] [place] [address] Care Team Providers Care Adhesive Primer Name Role Phone Unavailable Primary Care Provider Unavailabl e Encounter Details Date Type Department Care Team (Late st Contact Info) Description 10/18/1999 Outpatient Historical [facility] MRI DEPT RondonBob manning MD [address] [place] [address] Multiple sclerosis (CMS/HCC) (Primary Dx) Social History Tobacco Use Types Packs/Day Years Used Date Smoking Tobacco: Never Assessed Comments Unknown Sex and Gender Information Value Date Recorded Sex Assigned at Not on file Legal Sex Female 4:16 AM OBSERVER ELECTRICAL PROSPECTING Gender Identity Not on file Sexual Orientation Not on file documented as of this encounter Plan of Treatment Not on file documented as of this encounter Visit Diagnoses Diagnosis Multiple sclerosis (CMS/HCC)- Primary Multiple sclerosis documented in this encounter
--- OUTSIDE RECORDS SUMMARY | 2025-01-08 16:20 | XMS_ITS | Continuity of Care Document ---
Author Organization [facility] Address [address] [place] [address] Phone Care Team Providers Care Plan Nurse Name Role Phone Lucrecia Spann MD Unavailable Unavailable Allergies, Adverse Reactions, Alerts Substance Reaction Status Criticality Penicillins Active No Information Medications Medication Instructions Dosage Effective Dates (start - stop) Status Comments atorvastatin 20 mg tablet take 1 tablet by oral route every day 20 MG - Active trimethoprim 100 mg tablet take 1 tablet by oral route every 12 hours 100 MG - Active Tirosint 100 mcg capsule take 1 capsule by oral route every day 100 MCG - Active chlorthalidone 25 mg tablet take 1 tablet by oral route every day 25 MG - Active Amlodipine 10 mg Tab - Active Levetiracetam 1,000 mg Tab - Active Lansoprazole 30 mg Rapid Dissolve Tab, Delayed Release - Active Procedures Procedure Date Eye Exam & Treatment Eye Exam & Treatment Eye Exam & Treatment Eye Exam & Treatment Eye Exam & Treatment Visual Field Examination(s) Advance Directives Directive Yes / No Effective Date File Name No Information Encounters Encounter Description Practice Location Reason(s) For Visit Diagnoses Date Provider Providers [facility] [address], [place], [place], [address], tel:[phone] SEC Victor Manuel TESFAYE Professional Complete Exam (chief complaint) Pseudophakia of both eyesKrukenbe rg spindle of both eyes 8 Spann Lucrecia. [address] [place], [address], . tel:[phone] Referring Provider: Vasile Navarro, [address] [facility] [address], [place], [address] . tel:[phone] [facility], [address], [place], [place], [address], [place] tel:[phone] SEC [place] Professional Complete Exam (chief complaint) Presence of intraocular lensKrukenbe rg spindle of both eyes 7 Randy Burnette. [address] [place] [address] [place], [address], [place]. tel:[phone] Referring Provider: Vasile Navarro, [address] [place], [address] . tel:[phone] [facility], [address], [place], [place], [address], [place] tel:[phone] SEC Victor Manuel [place] Professional No Information 7 Randy Burnette. [address] [facility] [place], [address], [place]. tel:[phone] [facility], [address], [place], [place], [address], [place] tel:[phone] SEC [place] Professional complete IOL check (chief complaint) No Information 6 Wankrosalba Burnette. [address] [facility] [place], [address], [place]. tel:[phone] Referring Provider: Vasile Navarro, [address] [facility] [address], [place], [address] . tel:[phone] [facility], [address], [place], [place], [address], tel:[phone] SEC Carroll MERA Professional No Information 6 Randy Burnette. [address] [facility], [place], [place], [address], . tel:[phone] [facility], [address], [place], [place], [address], tel:[phone] SEC Victor Manuel MERA Professional Difficulty reading (chief complaint) No Information 4 Randy Burnette. [address] [facility], [address] [place], [address], . tel:[phone] Referring Provider: Vasile Navarro, [address] [facility] [place], [address] . tel:[phone] [facility], [address], [place], [place], [address], tel:[phone] SEC Carroll MERA Professional a comprehensive exam (chief complaint) No Information 3 Randy Burnette. [address] [facility], [address] [place], [address], . tel:[phone] Referring Provider: Vasile Navarro, [address] [facility] [place], [address] . tel:[phone] [facility], [address], [place], [place], [address], tel:[phone] SEC Victor Manuel MERA Professional No Information 3 Randy Burnette. [address] [facility] [address] [place], [address], . tel:[phone] Family History Family Member Type Diagnosis Age At Onset Mother Problem (finding) glaucoma Mother Problem (finding) Diabetes mellitus Payers Payer name Insurance type Covered republican ID Antionette aguilar(s) Medicare [id number] Cigtrixie Medicare Supplement CI [id number] Social History Type Description Quantity Date Captured Comments Alcohol Use Details 2 drinks weekly Caffeine Use Details 2 cups per day Tobacco Use Status Current non-smoker 18 Smoking Status Never smoker Non-Smoking Tobacco Use Details : No Details Available : No Details Available Sex Female Chief Complaint And Reason For Visit From encounter dated '01/27/2018 10:30'. Complete Exam (chief complaint). Description: The 67 year old female presents for Complete Exam in the right eye and left eye. 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 Pt not currently using any gtts. Pt states vision is stable since last visit here in 12/2016, pthas not noticed any changes. Pt denies any new flashers, floaters, pain or discomfort at this time. Pt declined a refraction, I informed pt that it is used diagnostically by the doctor, and that the doctor determines if the pt will be charged for the refraction but pt still declined at this time. Reason For Referral Reason For Referral No Information History Of Present Illness Encounter Date Complaint History Of Prese nt Illness Complete Exam The 67 year old female presents for Complete Exam in the right eye and left eye. 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 Pt not currently using any gtts. Pt states vision is stable since last visit here in 12/2016, pt has not noticed any changes. Pt denies any new flashers, floaters, pain or discomfort at this time. Pt declined a refraction, I informed pt that it is used diagnostically by the doctor, and that the doctor determines if the pt will be charged for the refraction but pt still declined at this time. Complete Exam The 66 year old female presents for Complete Exam in the right eye and left eye. Pt has Hx of PCIOL OU, low risk OAG, and Kruckenberg Spindle OU. Pt reports she hasn't noticed any changes in vision, OU, since last visit. Pt reports she just got new glasses. Pt reports no pain, irritation, or discomfort OU. Pt reports she doesn't use any gtts, OU. complete IOL check The 65 year o ld female presents for a complete IOL check OU. Pt states v/a OU is stable, without complaints. Pt denies any pain or discomfort. Pt does not use any gtts. Difficulty reading Patient prese nts for a complete IOL check. Patient wears glasses for reading. Patient denies any changes in vision. Patinet wants a new SRX to get new sunglasses. 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 IOL's in good position OU. K-Spindle stable OU. Pt understands K-Spindle is a risk factor for pigmentary glaucoma. No signs of AMD OU. Return to clinic in 1 year for complete exam or sooner with any problems. Impression/Plan - PC IOL OU stable. Discussed Krukenberg Spindle OU in detail with pt. IOP stable; no change to optic nerve. Will continue to monitor. RTC in 1 year for a complete exam. Follow up - RTC in 1 year for a complete exam. - observation Related to LENS REPLACEMENT NEC - 1yr Related to OPN A NGL W BORDERLN FIND Low Risk - observation Related to OPN A NGL W BORDERLN FIND Low Risk - wants same glasses rx rewritte n Related to ASTIGMATISM NOS had stroke and dr ab out a yr ago and her dr wanted peripheral vis checked-num fixation losses but no defect noted - observatiom Related to Visual Field Defect, unspecified pseudo with capsulot elma ou - observation Related to Pseudophakia - 1yr Related to Glauc erasto Suspect glaucoma suspect-k s pidle and mother with glaucoma - observation Related to Glaucoma Suspect Assessments Type Assessment Date assessment Pseudophakia of both eyes assessment 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
--- OUTSIDE RECORDS SUMMARY | 2025-01-08 16:20 | XMS_ITS | Clinical Summary ---
Author Organization [facility] Address [address] [place] [address] Care Team Providers Care Railroad Auditor Name Role Phone Jax Cruz MD Primary Care Provider [phone] Source Comments [facility],non-owned Affiliates and Associated Physician Practices is amultiple site organization consisting of ambulatory clinics and hospital sitesin [place], [place], [place] and [place]. This disclosure is being madepursuant to the Care Everywhere program and may not contain all information available regarding this patient. Last updated 18.[facility] Social History Tobacco Use Types Packs/Day Years Used Date Smoking Tobacco: Never Assessed Sex and Gender Information Value Date Recorded Sex Assigned at Not on file Gender Identity Not on file Sexual Orientation Not on file Plan of Treatment Health Maintenance Due Date Last Done Comments BONE DENSITY TESTING 1950 COLOGUARD (AGES 45-75) - COL ON CA SCREENING 1952 COLON MONITORING 1952 COLONOSCOPY - COLON CA SCREENING 1952 CT COLONOGRAPHY - COLON CA SCREENING 1950 Colorectal Cancer Screening 1952 FIT - COLON CA SCREENING 1952 FLEX SIG - COLON CA SCREENING 1952 MAMMOGRAM 1952 HEPATITIS C SCREENING 04/04/1970 DTAP/TDAP/TD VACCINES (1 - Tdap) 1971 PNEUMOCOCCAL VACCINE 50+ (1 of 1 - PCV) 2002 ZOSTER VACCINE (1 of 2) 2002 LIPID TESTING 09/07/2017 09/07/2012 COVID-19 VACCINE (2023-2 5 season) 2024 INFLUENZA VACCINE (#1) 2024 DEPRESSION SCREENING 11/01/2024 Respiratory Syncytial Virus (RSV) Vaccine Pt: or over 60 yrs (1 - 1-dose 75+ series) 2027 HEPATITIS B VACCINE Aged Out No longe r eligible based on patient's age to complete this topic HIB VACCINE Aged Out No longer eligi ble based on patient's age to complete this topic HPV VACCINE Aged Out No longer eligi ble based on patient's age to complete this topic MENINGOCOCCAL (Group B) VACCINE Aged Out No longer eligible based on patient's age to complete this topic MENINGOCOCCAL VACCINE Aged Out No claudine etienne eligible based on patient's age to complete this topic Procedures Procedure Name Priority Date/Time Associated Diagnosis Comments LIPID PROFILE Routine 09/07/2012 11:00 AM CONVEYOR BELT OPERATOR from Last 3 Months or Most Recently Relevant to Health Maintenance Results * (ABNORMAL) LIPID PROFILE (09/07/2012 11:00 AM CONVEYOR BELT OPERATOR) Cholesterol Total 194 <200 mg/dL [facility] HDL 64 > OR = 40 mg/dL [facility] Comment: ATP III classification of HDL cholesterol: <40 mg/dL Low; considered a major risk factor >60 mg/dL High; considered a negative risk factor Triglycerides 56 <150 mg/dL [facility] Comment: ATP III classification of Triglycerides: < 150 mg/dL Normal triglycerides 150-199 mg/dL Borderline-high triglycerides 200-400 mg/dL High triglycerides > 500 mg/dL Very high triglycerides LDL Calculated 119(H) 0 - 100 mg/dL [facility] Comment: ATP III classification of LDL cholesterol: <100 mg/dL Optimal 100-129 Near optimal/above optimal 130-159 Borderline high 160-189 High >190 Very high Venous blood specimen (specimen) 09/07/2012 11:00 AM CONVEYOR BELT OPERATOR 09/07/2012 11:15 AM CONVEYOR BELT OPERATOR Zayra Webster MD LAB - CHEMISTRY JAZMIN Reynolds Organization Address City/State/ZIP Co de Phone Number [address] [phone] from Last 3 Months or Most Recently Relevant to Health Maintenance Care Teams Railroad Auditor Relationship Specialty Start Date End Date Jax Cruz MD [address] [place] [address] PCP - General 12/15/19
--- OUTSIDE RECORDS SUMMARY | 2025-01-08 16:20 | XMS_ITS | Encounter Summary ---
Author Organization [facility] Address [address] [place] [address] Care Team Providers Care Mitering Machine Operator Name Role Phone Jax Cruz MD Primary Care Provider [phone] Encounter Details Date Type Department Care Team (Late st Contact Info) Description 12/18/[address] [facility] DermPath Lab [address] [facility] [place] [address] Renée Boston MD [address] [facility] [address] [place] [address] Social History Tobacco Use Types Packs/Day Years Used Date Smoking Tobacco: Never Assessed Sex and Gender Information Value Date Recorded Sex Assigned at Not on file Gender Identity Not on file Sexual Orientation Not on file documented as of this encounter Plan of Treatment Not on file documented as of this encounter Procedures Procedure Name Priority Date/Time Associated Diagnosis Comments DERMATOPATHOLOGY Routine 12/15/2019 12:0 0 AM SCAFFOLD SETTER documented in this encounter Results * DERMATOPATHOLOGY (12/15/2019 12:00 AM SCAFFOLD SETTER) Case Report Dermatopathology Report Case: [id number] Authorizing Provider: Renée Boston MD Collected: 12/15/2019 12:00 AM Ordering Location: [facility] Lab Received: 12/18/2019 07:56 AM Pathologist: Gee Bautista MD Specimen: Skin, left FA 0 1:23 PM SCAFFOLD SETTER DERMATOPATHOLOGY LABORATORY Final Diagnosis Specimen A. SKIN, left FA: BENIGN VERRUCOUS KERATOSIS, INFLAMED (L82.1) OVERLYING CUTANEOUS HORN (L85.8) 0 1:23 PM [facility] DERMATOPATHOLOGY LABORATORY Clinical History SCC. Growing. 0 1:23 PM SCAFFOLD SETTER DERMATOPATHOLOGY LABORATORY Gross Description Specimen A: Received is one formalin filled container labeled with the patient's name and designated left FA. The specimen consists of a shave measuring [id number], bisected. Jar 0. 0 1:23 PM [facility] DERMATOPATHOLOGY LABORATORY Microscopic Description Specimen A. SKIN, left FA: Sections show hyperkeratosis, papillomatosis, hypergranulosis, and acanthosis. Inflammatory cells are present within the dermis. These histological findings can be seen in a verruca vulgaris or a seborrheic keratosis. There is a column of marked compact hyperkeratosis. 0 1:23 PM [facility] DERMATOPATHOLOGY LABORATORY Disclaimer An external and internal positive and negative controls are appropriate for the histochemical, immunohistochemical and immunofluorescence stain(s) in this case (if any), except where stated explicitly. The performance characteristics of the stain(s) cited in this report were developed and its performance characteristic determined by the Dermatopathology Laboratory at [facility], directed by Dr. Marie Bautista. These tests need not be, and therefore are not, approved by the [place] Food and Drug Administration. The tests are used for clinical purposes. Billing Codes Specimen Charges Stain Charges 63968 1 0 1:23 PM SCAFFOLD SETTER DERMATOPATHOLOGY LABORATORY Embedded Images 0 1:23 PM SCAFFOLD SETTER DERMATOPATHOLOGY LABORATORY Pathology/Cytolog y TISSUE SPECIMEN FROM SKIN / Unknown 12/15/2019 12/18/2019 7:56 AM SCAFFOLD SETTER Renée Boston MD LAB - PATHOLOGY/CYT OLOGY ORDERABLES DERMATOPATHOLOGY LABORATORY [facility] - Department of Dermatology [address] [place] [address], [address] [place] [address], [facility] [phone] documented in this encounter Visit Diagnoses Not on filedocumented in this encounter Care Teams Mitering Machine Operator Relationship Specialty Start Date End Date Jax Cruz MD [address] [place] [address] PCP - General 12/15/19 documented as of this encounter
== END 2025-01-08 14:04 | disposition home or self-care (01) ==
LOC: ANHIMG 14:05
PROVIDERS: PCP Family Medicine; Visit Provider Family Medicine
DX: Z12.31 Encounter for screening mammogram for malignant neoplasm of breast (principal)
CPT/HCPCS: 77063; 77067

== ENCOUNTER 2025-03-29 10:31 | Emergency (ER) | payer MEDICARE, SELFPAY ==
--- NOTE | ~2025-03-29 | XR_ITS ---
HISTORY: ALL OVER KNEE PAIN AFTER POP LAST PM COMPARISON: None TECHNIQUE: 4 views of the left knee were performed FINDINGS: No acute or subacute fracture, erosion, lytic or sclerotic lesion. Medial and lateral tibiofemoral joint space narrowing is identified, with sclerosis of the tibial santino teau. Small suprapatellar joint effusion is identified. The infrapatellar joint space is clear. Chondrocalcinosis is identified within the tibial femoral joint space IMPRESSION: Severe degenerative disease, without acute fracture Reviewed, dictated and finalized at location A.
[2025-03-29 10:31] VITALS: BP 140/52; PULSE 67; RESP 16; TEMP 36.4; O2SAT 98
--- OUTSIDE RECORDS SUMMARY | 2025-03-29 10:33 | XMS_ITS | Clinical Summary ---
Author Organization [facility] Address [address] [facility] [address] [place] [address] Care Team Providers Care Machine Ii Trimmer Name Role Phone Jax Cruz MD Primary Care Provider [phone] [facility],non-owned Affiliates and Associated Physician Practices is amultiple site organization consisting of ambulatory clinics and hospital sitesin [place], [place] and [place]. This disclosure is being madepursuant to the Care Everywhere program and may not contain all information available regarding this patient. Last updated 18.[facility] [employer] Social History Tobacco Use Types Packs/Day Years Used Date Smoking Tobacco: Never Assessed Comments Unknown Sex and Gender Information Value Date Recorded Sex Assigned at Not on file Legal Sex Female 6:15 AM HAMMERER HELPER Gender Identity Not on file Sexual Orientation [...] 09/07/2012 COVID-19 VACCINE (2023-2 5 season) 2024 DEPRESSION SCREENING 11/01/2024 INFLUENZA VACCINE (Season Ended) 2025 Respiratory Syncytial Virus (RSV) Vaccine Pt: or [...] to complete this topic MENINGOCOCCAL (Group B) VACC INE SHARED DECISION-MAKING Aged Out No longer eligibl e based on patient's age to complete this topic MENINGOCOCCAL GROUPS A/C/Y/W VACCINE Aged Out No longer eligible b ased on patient's age to complete this topic Procedures Procedure Name Priority Date/Time Associated Diagnosis Comments LIPID PROFILE Routine 09/07/2012 11:00 AM HAMMERER HELPER from Last 3 Months or Most Recently Relevant to Health Maintenance Results * (ABNORMAL) LIPID PROFILE (09/07/2012 11:00 AM HAMMERER HELPER) Cholesterol Total 194 <200 mg/dL [facility] HDL 64 > OR = 40 mg/dL [facility] Comment: ATP III classification of HDL cholesterol: <40 mg/dL Low; considered a major risk factor >60 mg/dL High; considered a negative risk factor Triglycerides 56 <150 mg/dL [facility] Comment: ATP III classification of Triglycerides: < 150 mg/dL Normal triglycerides 150-199 mg/dL Borderline-high triglycerides 200-400 mg/dL High triglycerides > 500 mg/dL Very high triglycerides LDL Calculated 119(H) 0 - 100 mg/dL [facility] Comment: ATP III classification of LDL cholesterol: <100 mg/dL Optimal 100-129 Near optimal/above optimal 130-159 Borderline high 160-189 High >190 Very high Venous blood specimen (specimen) 09/07/2012 11:00 AM HAMMERER HELPER 09/07/2012 11:15 AM HAMMERER HELPER Zayra Webster MD LAB - CHEMISTRY ORDERABLES Hali goldberg Result [facility] [address] [place] [address], [facility] [phone] from Last 3 Months or Most Recently Relevant to Health Maintenance Insurance [employer] Care Teams Machine Ii Trimmer Relationship Specialty Start Date End Date Jax Cruz MD [address] [place] [address] PCP - General 12/15/19
--- OUTSIDE RECORDS SUMMARY | 2025-03-29 10:33 | XMS_ITS | Clinical Summary ---
Author Organization [facility] Address [address] [place] [address] Care Team Providers Care Ekg/Ecg Technician Name Role Phone Jax Cruz MD Primary [...] 1 tablet (88 mcg total) by mouth ssds mk 2 advanced operator before breakfast Active chlorthalidone 25 mg tablet [...] min. Active clindamycin (CLEOCIN) 150 mg capsule 4 Active cephalexin (KEFLEX) 500 mg capsule Take 1 capsule (500 mg total) by mouth 2 (two) times a day 4 Active ciprofloxacin (CIPRO) 500 mg tablet Take 1 tablet (500 mg total) by mouth every 12 (twelve) hours Active Active Problems No known active problems Encounters Date Type Department Care Team Description 01/12/2025 3:20 PM CDT Office Visit [facility] [address] [facility] [address] [place] [address] Yelena Flores MD Age-related osteoporosis without current pathological fracture (Primary Dx); Monoclonal (M) protein disease, multiple 'M' protein; Osteopenia of multiple sites 01/12/2025 2:50 PM CDT Clinical Support [facility] [address] [facility] [address] [place] [address] Age-related osteoporosis without current pathological fracture (Primary Dx) 01/12/2025 Telephone [facility] [address] [facility] [address] [place] [address] Yelena Flores MD from Last 3 Months Family History Medical History Relation Name Comments Hip fracture Neg Hx Osteoporosis Neg Hx Social History Tobacco Use Types Packs/Day Years Used Date Smoking Tobacco: Never Passive Smoke Exposure: Never Smokeless Tobacco: Never Tobacco Cessation:Counseling Given: Not Answered Comments Unknown Sex and Gender Information Value Date Recorded Sex Assigned at Not on file Legal Sex Female 2:58 PM 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 Gender Identity Not on file Sexual Orientation Not on file Obstetrics History Last Filed Vital Signs Vital Sign Reading Time Taken Comments Blood Pressure 144/69 05/02/2024 10:14 AM CDT Pulse 73 05/02/2024 10:14 AM CDT Temperature 36.7 C (98 F) 05/02/2024 10:14 AM CDT Respiratory Rate - - Oxygen Saturation 96% 05/02/2024 10:14 AM CDT Inhaled Oxygen Concentration - - Weight 80.3 kg (177 lb) 01/12/2025 3:07 PM CDT Height 161.3 cm (5' 3.5) 01/12/2025 3:07 PM CDT Body Mass Index 30.86 01/12/2025 3:07 PM CDT Plan of Treatment Health Maintenance Due Date Last Done Comments Breast Cancer Screening-Mammogram 1950 Colon Cancer Screening-Colonoscopy 1950 Depression Screening 1950 Fall Risk Assessment 1950 Hepatitis C Screening 1950 Hepatitis B Screening 1970 Well Visit 65+ 2017 Covid-19 Vaccine (5 - 2023-2 5 season) 2024 07/22/2022, 02/02/2022, 07/27/2021, Additional history exists Influenza Vaccine (Season Ended) 2025 06/30/2022, 07/04/2021, 07/15/2020, Additional history exists Osteoporosis Screening-Bone Density Scan 01/12/2027 01/12/2025, 01/12/2024, 12/04/2022 DTaP/Tdap/Td Vaccine (2 - Td or Tdap) 07/06/2027 07/06/2017 Pneumococcal vaccine 65+ Completed 07/11/2018, 03/2017 Zoster Vaccine Completed 09/28/2018, 07/13/2018 Procedures Procedure Name Priority Date/Time Associated Diagnosis Comments DEXA TBS AXIAL SKELETON BONE DENSITY 1 OR MORE SITES Schedule Routine, Read Routine (OP Routine) 01/12/2025 2:45 PM CDT Age-related osteoporosis without current pathological fracture from Last 3 Months Results * Dexa TBS Axial Skeleton Bone Density 1 or more sites (01/12/2025 2:45 PM CDT) Anatomical Region Laterality Modality Wrist, Body N/A Radiographic Tammy ging Narrative 01/14/2025 10:09 PM CDT Patient Name: Irene Lou Date of : 1950 Date of scan: 01/12/2025 Bone mineral density was performed on a [employer] Discovery Densitometer. Based on machine cross-calibration and precision studies the least significant changes of this densitometer is 0.024 g/cm2 at the spine, 0.020 g/cm2 at the total proximal femur, and 0.014g/cm2 at the forearm. HISTORY: This is a 74 y.o. postmenopausal female with a history of low bone mass, thyroid disease, and vitamin D deficiency. She reports that she has never smoked. She has never been exposed to tobacco smoke. She has never used smokeless tobacco. Currently on treatment with calcium, vitamin D, alendronate (Fosamax), anti-seizure medications, and thyroid hormone and current complaint of back pain. INDICATIONS: Menopause status, treatment monitoring, vitamin D deficiency, and history of low bone mass. FINDINGS: BONE MINERAL DENSITY OF THE LUMBAR SPINE Bone Mineral Density (BMD) of the lumbar spine was measured from L1-L3 and the average density was calculated to be 0.843 gm/cm2. This corresponds to a T-score (standard deviations from the mean of young adults) of -1.6. When compared to the previous study of 01/12/2024 there has been a 0.046 gm/cm (5.8%) increase in bone density that is considered significant. BONE MINERAL DENSITY OF THE PROXIMAL FEMUR Bone Mineral Density (BMD) of the left hip total was found to be 0.772 gm/cm2. This corresponds to a T-score standard deviations from the mean of young adults of -1.4. Femoral neck is 0.660 gm/cm2 with a T-score (standard deviations from the mean of young adults) of -1.7. When compared to the previous study of 01/12/2024 there has been a 0.020 gm/cm (2.7%) increase in bone density that is considered significant. SUMMARY: Bone mineral density shows evidence of low bone mass at the lumbar spine and proximal femur and moderately increased fracture risk (Osteopenia). There has been a significant increase in bone density since previous measurement. L4 excluded from bone mineral density analysis of the lumbar spine due to bone density being more than 1 standard deviation discrepant relative to one adjacent vertebra. Clinical correlation is recommended. The lumbar spine Trabecular Bone Score is 1.116 which suggests degraded bone microarchitecture compared to [...] bone mineral density scan were prepared by Malu Bailey) MAURA who is accredited by the International Society of Clinical Densitometry. The overall patient assessment and scan interpretation were performed by Yelena Flores M.D. who is certified by the International Society of Clinical Densitometry. [id number] Yelena Flores MD IMG DXA PROCEDURES Final R esult from Last 3 Months Insurance T MEDICARE [facility] [address] [place], [place] [address] T MEDICARE GOLD Care Teams Ekg/Ecg Technician Relationship Specialty Start Date End Date Jax Cruz MD [address] [place] [id number] PCP - General Family Medicine 11/17/22
--- OUTSIDE RECORDS SUMMARY | 2025-03-29 10:33 | XMS_ITS | Referral Summary ---
Author Organization [facility] Address [address] [place] [phone] Care Team Providers Care Juvenile Justice Specialist Name Role Phone Jax Cruz MD Primary Care Provider Encounters Date Type Department Care Team Description 01/12/2025 Telephone [facility] [address] [facility] [address] [place] [phone] Yelena Flores MD 01/12/2025 2:50 PM CDT Clinical Support [facility] [address] [facility] [address] [place] [address] Age-related osteoporosis without current pathological fracture (Primary Dx) 01/12/2025 3:20 PM CDT Office Visit [facility] [address] [facility] [address] [place] [address] Yelena Flores MD Age-related osteoporosis without current pathological fracture (Primary Dx); Monoclonal (M) protein disease, multiple 'M' protein; Osteopenia of multiple sites from Last 3 Months Allergies Active Allergy Reactions Criticality Noted Date [...] 1 tablet (88 mcg total) by mouth lead massage therapist before breakfast Active chlorthalidone 25 mg tablet [...] total) by mouth every 12 (twelve) hours 5 Active Active Problems No known active problems Social History Tobacco Use Types Packs/Day Years Used Date Smoking Tobacco: Never Passive Smoke Exposure: Never Smokeless Tobacco: Never Tobacco Cessation:Counseling Given: Not Answered Comments Unknown Sex and Gender Information Value Date Recorded Sex Assigned at Not on file Legal Sex 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 Based on machine cross-calibration and [...] by the International Society of Clinical Densitometry. [id number] Yelena Flores MD IMG DXA PROCEDURES Final R esult from Last 3 Months Insurance [employer] MEDICARE GOLD [facility] MEDICARE Address: [facility] [id number] [place] [address] [employer] MEDICARE GOLD Care Teams Juvenile Justice Specialist Relationship Specialty Start Date End Date Jax Cruz MD [address] [address] PCP - General Family Medicine 09/17/22
--- OUTSIDE RECORDS SUMMARY | 2025-03-29 10:33 | XMS_ITS | Encounter Summary ---
Author Organization [facility] Address 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
--- OUTSIDE RECORDS SUMMARY | 2025-03-29 10:33 | XMS_ITS | Encounter Summary ---
Author Organization [employer] [facility] Address [address] [place] [address] Care Team Providers Care Auto Clutch Rebuilder Name Role Phone Unavailable Primary Care Provider Unavailabl e Encounter Details Date Type Department Care Team (Late st Contact Info) Description 10/08/1999 Outpatient Historical Division of Neurology [address] [address] Bob Rondon MD [address] [facility] [address] [place] [address] Social History Tobacco Use Types Packs/Day Years Used Date Smoking Tobacco: Never Assessed Comments Unknown Sex and Gender Information Value Date Recorded Sex Assigned at Not on file Legal Sex Female 4:16 AM SENIOR TRIAL ATTORNEY Gender Identity Not on file Sexual Orientation Not on file documented as of this encounter Plan of Treatment Not on file documented as of this encounter Visit Diagnoses Not on filedocumented in this encounter
--- OUTSIDE RECORDS SUMMARY | 2025-03-29 10:33 | XMS_ITS | Encounter Summary ---
Author Organization [facility] Address [address] [place] [address] Care Team Providers Care Software Development Intern Name Role Phone Jax Cruz MD Primary Care Provider [phone] Encounter Details Date Type Department Care Team (Late st Contact Info) Description 12/18/2019 Lab Requisition [facility] DermPath Lab [address] [facility] [place] [address] Renée Boston MD [address] [facility] [address] [place] [address] Social History Tobacco Use Types Packs/Day Years Used Date Smoking Tobacco: Never Assessed Comments Unknown Sex and Gender Information Value Date Recorded Sex Assigned at Not on file Legal Sex Female 6:15 AM MAGNET PLACER Gender Identity Not on file Sexual Orientation Not on file documented as of this encounter Plan of Treatment Not on file documented as of this encounter Procedures Procedure Name Priority Date/Time Associated Diagnosis Comments DERMATOPATHOLOGY Routine 12/15/2019 12:0 0 AM MAGNET PLACER documented in this encounter Results * DERMATOPATHOLOGY (12/15/2019 12:00 AM MAGNET PLACER) Case Report Dermatopathology Report Case: [id number] Authorizing Provider: Renée Boston MD Collected: 12/15/2019 12:00 AM Ordering Location: [facility] Derm[facility] Lab Received: 12/18/2019 07:56 AM Pathologist: Gee Bautista MD Specimen: Skin, left FA 0 1:23 PM [facility] DERMATOPATHOLOGY LABORATORY Final Diagnosis Specimen A. SKIN, left FA: BENIGN VERRUCOUS KERATOSIS, INFLAMED (L82.1) OVERLYING CUTANEOUS HORN (L85.8) 0 1:23 PM [facility] DERMATOPATHOLOGY LABORATORY at [address] Clinical History SCC. Growing. 0 1:23 PM [facility] DERMATOPATHOLOGY LABORATORY Gross Description Specimen A: Received is one formalin filled container labeled with the patient's name and designated left FA. The specimen consists of a shave measuring [id number], bisected. Jar 0. 0 1:23 PM [facility] DERMATOPATHOLOGY LABORATORY Microscopic Description Specimen A. SKIN, left FA: Sections show hyperkeratosis, papillomatosis, hypergranulosis, and acanthosis. Inflammatory cells are present within the dermis. These histological findings can be seen in a verruca vulgaris or a seborrheic keratosis. There is a column of marked compact hyperkeratosis. 0 1:23 PM [facility] DERMATOPATHOLOGY LABORATORY Disclaimer An external and internal positive and negative controls are appropriate for the histochemical, immunohistochemical and immunofluorescence stain(s) in this case (if any), except where stated explicitly. The performance characteristics of the stain(s) cited in this report were developed and its performance characteristic determined by the Dermatopathology Laboratory at [facility], directed by Dr. Marie Bautista. These tests need not be, and therefore are not, approved by the [place] Food and Drug Administration. The tests are used for clinical purposes. Billing Codes Specimen Charges Stain Charges 00926 1 0 1:23 PM [facility] DERMATOPATHOLOGY LABORATORY Embedded Images 0 1:23 PM [facility] DERMATOPATHOLOGY LABORATORY Pathology/Cytolog y TISSUE SPECIMEN FROM SKIN / Unknown 12/15/2019 12/18/2019 7:56 AM [facility] Renée Boston MD LAB - PATHOLOGY/CYTOLOGY OR DERABLES Final Result DERMATOPATHOLOGY LABORATORY [facility] - Department of Dermatology [address] [place] [address] 5th Floor Lab [address] [phone] documented in this encounter Visit Diagnoses Not on filedocumented in this encounter Care Teams Software Development Intern Relationship Specialty Start Date End Date Jax Cruz MD [address] [place] [id number] PCP - General 12/15/19 documented as of this encounter
--- OUTSIDE RECORDS SUMMARY | 2025-03-29 10:33 | XMS_ITS | Encounter Summary ---
Author Organization [employer] [facility] Address [address] [place] [address] Care Team Providers Care Production Control Technologist Name Role Phone Unavailable Primary Care Provider Unavailabl e Encounter Details Date Type Department Care Team (Late st Contact Info) Description 10/08/1999 Outpatient Historical Division of Neurology [address] [address] Bob Rondon MD [address] [facility] [address] [place] [address] Social History Tobacco Use Types Packs/Day Years Used Date Smoking Tobacco: Never Assessed Comments Unknown Sex and Gender Information Value Date Recorded Sex Assigned at Not on file Legal Sex Female 4:16 AM APPLICATIONS TRAINER Gender Identity Not on file Sexual Orientation Not on file documented as of this encounter Plan of Treatment Not on file documented as of this encounter Visit Diagnoses Not on filedocumented in this encounter
--- OUTSIDE RECORDS SUMMARY | 2025-03-29 10:33 | XMS_ITS | Clinical Summary ---
Author Organization [facility] Address [address] [facility] Attn: Epic Prelude ADT [place] [address] Care Team Providers Care Flexo Press Operator Name Role Phone Unavailable Primary Care Provider Unavailabl e Social History Tobacco Use Types Packs/Day Years Used Date Smoking Tobacco: Never Assessed Comments Unknown Sex and Gender Information Value Date Recorded Sex Assigned at Not on file Legal Sex Female 4:16 AM OPAL POLISHER Gender Identity Not on file Sexual Orientation [...]
--- OUTSIDE RECORDS SUMMARY | 2025-03-29 10:33 | XMS_ITS | Continuity of Care Document ---
Author Organization [facility] Address [address] [place] [address] Phone Care Team Providers Care Restaurant Mgr Name Role Phone Lucrecia Spann MD Unavailable Unavailable Allergies, Adverse Reactions, Alerts Substance Reaction Status Criticality Penicillins Active No Information Medications Medication Instructions Dosage Effective Dates (start - stop) Status Comments trimethoprim 100 mg tablet take 1 tablet by oral route every 12 hours 100 MG - Active atorvastatin 20 mg tablet take 1 tablet by oral route every day 20 MG - Active chlorthalidone 25 mg tablet take 1 tablet by oral route every day 25 MG - Active Tirosint 100 mcg capsule take 1 capsule by oral route every day 100 MCG - Active Lansoprazole 30 mg Rapid Dissolve Tab, Delayed Release - Active Levetiracetam 1,000 mg Tab - Active Amlodipine 10 mg Tab - Active Procedures Procedure Date Eye Exam & Treatment Eye Exam & Treatment Eye Exam & Treatment Eye Exam & Treatment Eye Exam & Treatment Visual Field Examination(s) Advance Directives Directive Yes / No Effective Date File Name No Information Encounters Encounter Description Practice Location Reason(s) For Visit Diagnoses Date Provider Providers Copied on [facility] [address], [place], [place], [address], tel:[phone] SEC Victor Manuel TESFAYE Professional Complete Exam (chief complaint) Pseudophakia of both eyesKrukenber g spindle of both eyes 8 Spann Lucrecia. [address] [place], [address], . tel:[phone] Referring Provider: Vasile Navarro, [address] [facility] [address], [place], [address] . tel:[phone] [facility], [address], [place], [place], [address], [place] tel:[phone] SEC [place] Professional Complete Exam (chief complaint) Presence of intraocular lensKrukenber g spindle of both eyes 7 Randy Burnette. [address] [facility] [place], [address], [place]. tel:[phone] Referring Provider: Vasile Navarro, [address] [place], [address] . tel:[phone] [facility], [address], [place], [place], [address], [place] tel:[phone] SEC [place] Professional No Information 7 Randy Burnette. [address] [facility] [place], [address], [place]. tel:[phone] [facility], [address], [place], [place], [address], [place] tel:[phone] SEC Victor Manuel [place] Professional complete IOL check (chief complaint) No Information 6 Wankrosalba Burnette. [address] [facility] [place], [address], [place]. tel:[phone] Referring Provider: Vasile Navarro, [address] [facility] [address], [place], [address] . tel:[phone] [facility], [address] [place] [address] [address], [place], [place], [address], tel:[phone] SEC [place] MERA Professional No Information 6 Randy Burnette. [address], [facility] [place], [address], . tel:[phone] [facility], [address] [place] [address] [address], [place], [place], [address], tel:[phone] SEC [place] MERA Professional Difficulty reading (chief complaint) No Information 4 Randy Burnette. [address] [facility], [facility] [place], [address], . tel:[phone] Referring Provider: Vasile Navarro, [address] [place], [address] . tel:[phone] [facility], [address] [place] [address] [address], [place], [place], [address], tel:[phone] SEC Victor Manuel TESFAYE Professional No Information 3 Randy Burnette. [address] [facility], [facility] [place], [address], . tel:[phone] Referring Provider: Vasile Navarro, [address] [place], [address] . tel:[phone] [facility], [address] [place] [address] [address], [place], [place], [address], tel:[phone] SEC Victor Manuel MERA Professional No Information 3 Randy Burnette. [address] [facility], [facility] [place], [address], . tel:[phone] Family History Family Member Type Diagnosis Age At Onset Mother Problem (finding) glaucoma Mother Problem (finding) Diabetes mellitus Payers Payer name Insurance type Covered green party ID Authoriza tion(s) Medicare RR MB [id number] Cigna Medicare Supplement CI [id number] Social History Type Description Quantity Date Captured [...]
--- OUTSIDE RECORDS SUMMARY | 2025-03-29 12:04 | XMS_ITS | Encounter Summary ---
Author Organization [employer] [facility] Address [address] [place] [address] Care Team Providers Care Shake Packer Name Role Phone Unavailable Primary Care Provider Unavailabl e Encounter Details Date Type Department Care Team (Late st Contact Info) Description 10/08/1999 Outpatient Historical Division of Neurology [address] [address] Bob Rondon MD [address] [facility] [address] [place] [address] Social History Tobacco Use Types Packs/Day Years Used Date Smoking Tobacco: Never Assessed Comments Unknown Sex and Gender Information Value Date Recorded Sex Assigned at Not on file Legal Sex Female 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
--- OUTSIDE RECORDS SUMMARY | 2025-03-29 12:04 | XMS_ITS | Continuity of Care Document ---
Author Organization [facility] Address [address] [place] [address] Phone Care Team Providers Care Simplex Printer Installer Name Role Phone Lucrecia Spann MD Unavailable [...] Diagnoses Date Provider Providers Copied on [facility]counter [facility], [address], [place], [place], [address], tel:[phone] SEC Victor Manuel TESFAYE Professional Complete Exam (chief complaint) Pseudophakia of both eyesKrukenber g spindle of both eyes 8 Spann Lucrecia. [address] [place], [address], . tel:[phone] Referring Provider: Vasile Navarro, [address] [facility] A, [place], [address] . tel:[phone] [facility], [address], [place], [place], [address], [place] tel:[phone] SEC [place] Professional Complete Exam (chief complaint) Presence of intraocular lensKrukenber g spindle of both eyes 7 Randy Burnette. [address] [facility] [place], [address], [place]. tel:[phone] Referring Provider: Vasile Navarro, [address] [place], [address] . tel:[phone] [facility], [address], [place], [place], [address], [place] tel:[phone] SEC [place] Professional No Information 7 Randy Burnette. [address] [facility] [place], [address], [place]. tel:[phone] [facility], [address], [place], [place], [address], [place] tel:[phone] SEC Victor Manuel [place] Professional complete IOL check (chief complaint) No Information 6 Wankrosalba Burnette. [address] [facility] [place], [address], [place]. tel:[phone] Referring Provider: Vasile Navarro, [address] [facility] [address], [place], [address] . tel:[phone] [facility], [address] [place] [address] [address], [place], [place], [address], tel:[phone] SEC Beauty MERA Professional No Information 6 Randy Burnette. [address], [facility] [place], [address], . tel:[phone] [facility], [address] [place] [address] [address], [place], [place], [address], tel:[phone] SEC Beauty MERA Professional Difficulty reading (chief complaint) No Information 4 Randy Burnette. [address] [facility], [facility] [place], [address], . tel:[phone] Referring Provider: Vasile Navarro, [address] [place], [address] . tel:[phone] [facility], [address] [place] [address] [address], [place], [place], [address], tel:[phone] SEC Victor Manuel TESFAYE Professional No Information 3 Randy Burnette. [address] [facility], [facility] [place], [address], . tel:[phone] Referring Provider: Vasile Navarro, [address] [place], [address] . tel:[phone] [facility], [address] [place] [address] [address], [place], [place], [address], tel:[phone] SEC Victor Manuel MERA Professional No Information 3 Randy Burnette. [address] [facility], [facility] [place], [address], . tel:[phone] Family History Family Member Type Diagnosis Age At Onset Mother Problem (finding) glaucoma Mother Problem (finding) Diabetes mellitus Payers Payer name Insurance type Covered alliance party ID Authoriza tion(s) Medicare RR MB [id number] Cigna Medicare Supplement CI [id number] Social History Type Description Quantity Date Captured [...]
--- OUTSIDE RECORDS SUMMARY | 2025-03-29 12:04 | XMS_ITS | Referral Summary ---
Author Organization [facility] Address [address] [place] [address] Care Team Providers Care Forming Machine Adjuster Name Role Phone Jax Cruz MD Primary Care Provider Encounters Date Type Department Care Team Description 01/12/2025 Telephone [facility] [address] [facility] Medical Office Building [address] [place] [address] Yelena Flores MD 01/12/2025 2:50 PM CDT Clinical Support [facility] [address] [facility] [address] [place] [address] Age-related osteoporosis without current pathological fracture (Primary Dx) 01/12/2025 3:20 PM CDT Office Visit [facility] [address] [facility] [address] [place] [address] Yelena Flores MD Age-related osteoporosis without current [...] 1 tablet (88 mcg total) by mouth meteorology instructor before breakfast Active chlorthalidone 25 mg tablet [...] on file Legal Sex Female 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 Based on machine cross-calibration and [...] by the International Society of Clinical Densitometry. [id number] Yelena Flores MD IMG DXA PROCEDURES Final R esult from Last 3 Months Insurance AET[employer] MEDICARE [facility] MEDICARE Address: [facility] [id number] [place] [address] AET[employer] MEDICARE GOLD Care Teams Forming Machine Adjuster Relationship Specialty Start Date End Date Jax Cruz MD [address] [address] PCP - General Family Medicine 09/17/22
--- OUTSIDE RECORDS SUMMARY | 2025-03-29 12:04 | XMS_ITS | Encounter Summary ---
Author Organization [facility] Address 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
--- OUTSIDE RECORDS SUMMARY | 2025-03-29 12:04 | XMS_ITS | Encounter Summary ---
Author Organization [employer] [facility] Address [address] [place] [address] Care Team Providers Care Equal Opportunity Officer Name Role Phone Unavailable Primary Care Provider Unavailabl e Encounter Details Date Type Department Care Team (Late st Contact Info) Description 10/08/1999 Outpatient Historical Division of Neurology [address] [address] Bob Rondon MD [address] [facility] [address] [place] [address] Social History Tobacco Use Types Packs/Day Years Used Date Smoking Tobacco: Never Assessed Comments Unknown Sex and Gender Information Value Date Recorded Sex Assigned at Not on file 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
--- OUTSIDE RECORDS SUMMARY | 2025-03-29 12:04 | XMS_ITS | Clinical Summary ---
Author Organization [facility] Address [address] [facility] [place] [address] Care Team Providers Care Credit Representative Name Role Phone Jax Cruz MD Primary Care Provider [phone] Source Comments [facility],non-owned Affiliates and Associated Physician Practices is amultiple site organization consisting of ambulatory clinics and hospital sitesin [place], [place], [place] and [place]. This disclosure is being madepursuant to the Care Everywhere program and may not contain all information available regarding this patient. Last updated 18.[facility] [employer] Social History Tobacco Use Types Packs/Day Years Used Date Smoking Tobacco: Never Assessed Comments Unknown Sex and Gender Information Value Date Recorded Sex Assigned at Not on file Legal Sex Female 6:15 AM LAY OUT TECHNICIAN Gender Identity Not on file Sexual [...] Comments LIPID PROFILE Routine 09/07/2012 11:00 AM LAY OUT TECHNICIAN from Last 3 Months or Most Recently Relevant to Health Maintenance Results * (ABNORMAL) LIPID PROFILE (09/07/2012 11:00 AM LAY OUT TECHNICIAN) Cholesterol Total 194 <200 mg/dL [facility] HDL 64 > OR = 40 mg/dL [facility] Comment: ATP III classification of HDL cholesterol: <40 mg/dL Low; considered a major risk factor >60 mg/dL High; considered a negative risk factor Triglycerides 56 <150 mg/dL [facility] Comment: ATP III classification of Triglycerides: < 150 mg/dL Normal triglycerides 150-199 mg/dL Borderline-high triglycerides 200-400 mg/dL High triglycerides > 500 mg/dL Very high triglycerides LDL Calculated 119(H) 0 - 100 mg/dL [facility] Comment: ATP III classification of LDL cholesterol: <100 mg/dL Optimal 100-129 Near optimal/above optimal 130-159 Borderline high 160-189 High >190 Very high Venous blood specimen (specimen) 09/07/2012 11:00 AM LAY OUT TECHNICIAN 09/07/2012 11:15 AM LAY OUT TECHNICIAN Zayra Webster MD LAB - CHEMISTRY ORDERABLES Hali goldberg Result [facility] [address] [place] [address], [facility] [phone] from Last 3 Months or Most Recently Relevant to Health Maintenance Insurance AETNA Care Teams Credit Representative Relationship Specialty Start Date End Date Jax Cruz MD [address] [place] [address] PCP - General 12/15/19
--- OUTSIDE RECORDS SUMMARY | 2025-03-29 12:04 | XMS_ITS | Clinical Summary ---
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
--- OUTSIDE RECORDS SUMMARY | 2025-03-29 12:04 | XMS_ITS | Clinical Summary ---
Author Organization [facility] Address [address] [place] [address] Care Team Providers Care Safety Director Name Role Phone Jax Cruz MD Primary [...] 1 tablet (88 mcg total) by mouth rn production before breakfast Active chlorthalidone 25 mg tablet [...] Description 01/12/2025 3:20 PM CDT Office Visit [facility] [address] [facility] [address] [place] [address] Yelena Flores MD Age-related osteoporosis without current pathological fracture (Primary Dx); Monoclonal (M) protein disease, multiple 'M' protein; Osteopenia of multiple sites 01/12/2025 2:50 PM CDT Clinical Support [facility] [address] [facility] [address] [place] [address] Age-related osteoporosis without current pathological fracture (Primary Dx) 01/12/2025 Telephone [facility] [address] [facility] Medical Office Building [address] [place] [address] Yelena Flores MD from Last [...] on file Legal Sex Female 2:58 PM HIM SPECIALISTS Gender Identity Not on file Sexual Orientation [...] Bone mineral density was performed on a [employer] Discovery Densitometer. Based on machine cross-calibration and [...] by the International Society of Clinical Densitometry. [id number] Yelena Flores MD IMG DXA PROCEDURES Final R esult from Last 3 Months Insurance T MEDICARE [facility] [address] [place], [place] [id number] T MEDICARE GOLD Care Teams Safety Director Relationship Specialty Start Date End Date Jax Cruz MD [address] [place] [address] PCP - General Family Medicine 11/17/22
--- OUTSIDE RECORDS SUMMARY | 2025-03-29 12:04 | XMS_ITS | Encounter Summary ---
Author Organization [facility] Address [address] [facility] [facility] [place] [address] Care Team Providers Care Button Tufter Name Role Phone Jax Cruz MD Primary Care Provider [phone] Encounter Details Date Type Department Care Team (Late st Contact Info) Description 12/18/2019 Lab Requisition [facility] [address] [facility], [place] [address] Renée [place] MD [address] [facility] 3 [place] [address] Social History Tobacco Use Types Packs/Day Years Used Date Smoking Tobacco: Never Assessed Comments Unknown Sex and Gender Information Value Date Recorded Sex Assigned at Not on file Legal Sex Female 6:15 AM BUSINESS DEVELOPMENT CONSULTANT Gender Identity Not on file Sexual Orientation Not on file documented as of this encounter Plan of Treatment Not on file documented as of this encounter Procedures Procedure Name Priority Date/Time Associated Diagnosis Comments DERMATOPATHOLOGY Routine 12/15/2019 12:0 0 AM BUSINESS DEVELOPMENT CONSULTANT documented in this encounter Results * DERMATOPATHOLOGY (12/15/2019 12:00 AM BUSINESS DEVELOPMENT CONSULTANT) Case Report Dermatopathology Report Case: [id number] Authorizing Provider: Renée [place] MD Collected: 12/15/2019 12:00 AM Ordering Location: [facility] Received: 12/18/2019 07:56 AM Pathologist: Gee Bautista MD Specimen: Skin, left FA 0 1:[address] [facility] DERMATOPATHOLOGY LABORATORY Final Diagnosis Specimen A. SKIN, left FA: BENIGN VERRUCOUS KERATOSIS, INFLAMED (L82.1) OVERLYING CUTANEOUS HORN (L85.8) 0 1:[address] [facility] DERMATOPATHOLOGY LABORATORY at [address] BUSINESS DEVELOPMENT CONSULTANT Clinical History SCC. Growing. 0 1:[address] [facility] DERMATOPATHOLOGY LABORATORY Gross Description Specimen A: Received is one formalin filled container labeled with the patient's name and designated left FA. The specimen consists of a shave measuring 74m6m3ji, bisected. Jar 0. 0 1:[address] [facility] DERMATOPATHOLOGY LABORATORY Microscopic Description Specimen A. SKIN, left FA: Sections show hyperkeratosis, papillomatosis, hypergranulosis, and acanthosis. Inflammatory cells are present within the dermis. These histological findings can be seen in a verruca vulgaris or a seborrheic keratosis. There is a column of marked compact hyperkeratosis. 0 1:[address] [facility] DERMATOPATHOLOGY LABORATORY Disclaimer An external and internal positive and negative controls are appropriate for the histochemical, immunohistochemical and immunofluorescence stain(s) in this case (if any), except where stated explicitly. The performance characteristics of the stain(s) cited in this report were developed and its performance characteristic determined by the Dermatopathology Laboratory at [facility], directed by Dr. Marie Bautista. These tests need not be, and therefore are not, approved by the [place] Food and Drug Administration. The tests are used for clinical purposes. Billing Codes Specimen Charges Stain Charges 83963 1 0 1:[address] [facility] DERMATOPATHOLOGY LABORATORY Embedded Images 0 1:[address] [facility] DERMATOPATHOLOGY LABORATORY Pathology/Cytolog y TISSUE SPECIMEN FROM SKIN / Unknown 12/15/2019 12/18/2019 7:[address] [facility] Renée Boston MD LAB - PATHOLOGY/CYTOLOGY OR DERABLES Final Result DERMATOPATHOLOGY LABORATORY [facility] - Department of Dermatology [address] [place] [address] 5th Floor Lab [address] [phone] documented in this encounter Visit Diagnoses Not on filedocumented in this encounter Care Teams Button Tufter Relationship Specialty Start Date End Date Jax Cruz MD [address] [place] [address] PCP - General 12/15/19 documented as of this encounter
--- NOTE | 2025-03-29 12:17 | ED_ITS ---
HPI - General Adult General Chief complaint: Extremity Problem,Nontraumatic Stated complaint: L knee pain, popped it yesterday Time Seen by Provider: 03/29/25 11:53 History of Present Illness HPI narrative: This is a pleasant 74-year-old female presenting knee pain. She stepped down o nto historian felt a pop in her left knee. Since then she has had he had with a walker. She did not feel any sliding in her knee. No weakness or loss of sensation to the foot. Patient's orthopedic surgeon is Dr. Scott Related Data Home Medications ?Medication ?Instructions ?Recorded ?Confirmed ?Last Taken ?Type Calcium 500 + D 1 tab-cap PO DAILY 09/27/23 12/26/24 10/06/23 History lansoprazole 15 mg capsule,delayed 30 mg PO DAILY 09/27/23 12/26/24 10/06/23 History release magnesium oxide 500 mg PO DAILY 09/27/23 12/26/24 10/06/23 History vgucvtlctftt-Uf-ifzu-minerals 1 tablet PO DAILY 09/27/23 12/26/24 10/06/23 History turmeric root extract 500 mg 500 mg PO BID 09/27/23 12/26/24 10/06/23 History capsule Allergies Allergy/AdvReac Type Severity Reaction Status Date / Time shrimp Allergy Severe Hives Verified 03/29/25 10:31 Penicillins Allergy Unknown Unknown Verified 03/29/25 10:31 [facility] Past Medical History Medical History Bursitis of left hip Degenerative joint disease (DJD) of hip Screening mammogram, encounter for History of seizure History of stroke Iliopsoas bursitis of right hip Chronic right hip pain Trochanteric bursitis of right hip Low bone mass Encounter for gynecological examination (general) (routine) without abnormal findings Chronic UTI (urinary tract infection) Dysuria Atonic neurogenic bladder Essential (primary) hypertension Family history of breast cancer Gastro-esophageal reflux disease without esophagitis History of subarachnoid hemorrhage HLD (hyperlipidemia) Hypothyroidism Surgical History Surgical History H/O total knee replacement (~2012) right knee Family History Family History Mother Cerebrovascular accident Family history of malignant neoplasm of breast in first degree relative Diabetes mellitus Family history of hypercholesterolemia Hypertension Father Family history of coronary artery disease Sibling Family history of malignant neoplasm of breast in first degree relative, Onset Age: 58 Other Family history of arthritis Family history of mental disorder Social History Social History Smoking status: Never smoker Second hand tobacco smoke exposure: No Alcohol intake: current Drinks per week: 15 Alcohol use details: DRINKS Substance use: never Substance use type: does not use Do You Feel Safe in your Home?: Yes Lack of Transportation: No Lack of Food: Never True Current Housing: I Have Housing Concerned About Future Housing: No Difficulty Paying Gas/Electric Bills: No Difficulty Paying for Meds: No Currently Unemployed: No Education: Master's Degree or Higher Difficulty w/ Childcare or Family Care: No Living arrangements: with family Additional living arrangements comments: Occupation/Education: retired Gender identity (if verbalized by the patient): Female Sexual Orientation (if Verbalized by the Patient): Straight or Heterosexual Spiritual care concerns: No Exam Narrative: APPEARANCE: No apparent distress. Head: atraumatic. EYES: EOMI, NOSE: Atraumatic NECK: Trachea midline RESPIRATORY: No increased rate of breathing CARDIOVASCULAR: RRR, ABDOMINAL: Non-distended MUSCULOSKELETAl: Focal exam left knee revealed no obvious swelling as compared to the other foot is neurovascularly intact. Patient is able to bear weight with some pain. Compartments are soft. No warmth to the knee. NEURO: Alert. Moving 4/4 extremities SKIN:: Warm, dry. Normal color PSYCHIATRIC: Normal affect Course Vital Signs Vital signs: Vital Signs Temperature 97.6 F 03/29/25 10:31 Pulse Rate 67 03/29/25 10:31 Respiratory Rate 16 03/29/25 10:31 Blood Pressure 140/52 L 03/29/25 10:31 Pulse Oximetry 98 03/29/25 10:31 Oxygen Delivery Room Air 03/29/25 10:31 Temperature 97.6 F 03/29/25 10:31 Pulse Rate 67 03/29/25 10:31 Respiratory Rate 16 03/29/25 10:31 Blood Pressure 140/52 L 03/29/25 10:31 Pulse Oximetry 98 03/29/25 10:31 Oxygen Delivery Room Air 03/29/25 10:31 Medical Decision Making [facility] Narrative Medical decision making narrative: -Course: 74-year-old female presenting knee pain after stepping down onto a step. Physical exam is unremarkable. X-ray negative for fracture That showed severe degenerative changes.patient will be treated with pain control and instructed follow-up with her orthopedic surgeon in 1 week for pain does not improve. Given return precautions. -DDX includes but is not limited to: Internal derangement of the knee, knee fracture, septic arthritis Vital Signs Vital Signs: Vital Signs Temperature 97.6 F 03/29/25 10:31 Pulse Rate 67 03/29/25 10:31 Respiratory Rate 16 03/29/25 10:31 Blood Pressure 140/52 L 03/29/25 10:31 Pulse Oximetry 98 03/29/25 10:31 Oxygen Delivery Room Air 03/29/25 10:31 Temperature 97.6 F 03/29/25 10:31 Pulse Rate 67 03/29/25 10:31 Respiratory Rate 16 03/29/25 10:31 Blood Pressure 140/52 L 03/29/25 10:31 Pulse Oximetry 98 03/29/25 10:31 Oxygen Delivery Room Air 03/29/25 10:31 Discharge Plan Discharge Clinical Impression: Acute knee pain Patient Disposition: Home Condition: Stable Instructions: Antibiotic Form, Knee Sprain (ED) Additional Instructions: You were seen in the emergency department for knee pain. Please use naproxen and Tylenol as needed for pain. Please follow-up with Dr. Scott in 1 week if your pain does not improve. If you develop worsening pain or weakness your leg please return to ED for re-evaluation. Patient Language: [place] Prescriptions: No Action amlodipine 10 mg tablet See Rx Instructions .ROUTE .COMPLEX Qty: 90 3RF Dose Instruction: TAKE 1 TABLET DAILY Rx Instructions: TAKE 1 TABLET DAILY atorvastatin 20 mg tablet See Rx Instructions .ROUTE .COMPLEX Qty: 90 3RF Dose Instruction: TAKE 1 TABLET ONCE DAILY Rx Instructions: TAKE 1 TABLET ONCE DAILY chlorthalidone 25 mg tablet See Rx Instructions .ROUTE .COMPLEX Qty: 90 3RF Dose Instruction: TAKE 1 TABLET DAILY Rx Instructions: TAKE 1 TABLET DAILY levetiracetam 1,000 mg tablet See Rx Instructions .ROUTE .COMPLEX Qty: 180 3RF Dose Instruction: TAKE 1 TABLET EVERY 12 HOURS Rx Instructions: TAKE 1 TABLET EVERY 12 HOURS levothyroxine 88 mcg tablet See Rx Instructions .ROUTE .COMPLEX Qty: 90 3RF Dose Instruction: TAKE 1 TABLET DAILY Rx Instructions: TAKE 1 TABLET DAILY clindamycin HCl 150 mg capsule See Rx Instructions .ROUTE .COMPLEX Qty: 4 1RF Rx Instructions: 4 tabs po one hr prior to dental work ; lansoprazole 15 mg Capsule,Delayed Release(Dr/Ec) 30 mg PO DAILY magnesium oxide 500 mg Tablet 500 mg PO DAILY qibrnndfhgez-Ph-qbib-minerals Tablet 1 tablet PO DAILY turmeric root extract 500 mg Capsule 500 mg PO BID Calcium 500 + D 1 tab-cap PO DAILY alendronate 35 mg tablet 35 mg PO WEEKLY Qty: 90 2RF cephalexin 500 mg capsule 500 mg PO DAILY Qty: 90 3RF cyanocobalamin (vitamin B-12) 1,000 mcg tablet 1,000 mcg PO DAILY Qty: 90 0RF ciprofloxacin HCl [Cipro] 500 mg tablet 500 mg PO Q12H Qty: 6 2RF Follow-up/Referrals: Jax Cruz MD [Primary Care Provider] -
[2025-03-29 13:33] VITALS: BP 129/80; PULSE 74; RESP 14; TEMP 36.3; O2SAT 98
== END 2025-03-29 13:34 | disposition home or self-care (01) ==
PROVIDERS: Emergency Provider Emergency Medicine; PCP Family Medicine
DX: M25.562 Pain in left knee (principal); I10 Essential (primary) hypertension; E78.5 Hyperlipidemia, unspecified; E03.9 Hypothyroidism, unspecified; K21.9 Gastro-esophageal reflux disease without esophagitis; N31.2 Flaccid neuropathic bladder, not elsewhere classified; M16.9 Osteoarthritis of hip, unspecified; Z86.73 Personal history of transient ischemic attack (TIA), and cerebral infarction without residual deficits; Z96.651 Presence of right artificial knee joint; Z79.899 Other long term (current) drug therapy
CPT/HCPCS: 73564; 99283